=== PATIENT | male | born 1940 | race Caucasian/White ===

== ENCOUNTER 2019-11-01 13:02 | Emergency (ER) | payer MEDICARE, OTHER ==
[~2019-11-01] VITALS: Ht 177.8 cm; Wt 78.0 kg
--- OUTSIDE RECORDS SUMMARY | ~2019-11-01 | XMS | Encounter Summary ---
Demographics + + + | Address | [address] | | | [place] [address] | + + + | Home Phone | | + + + | Preferred Language | Unknown | + + + | Marital Status | | + + + | Druze Affiliation | Unknown | + + + | Race | Unknown | + + + | Ethnic Group | Unknown | + + + Author + + + | Author | [facility] | | | and Aashishana | + + + | Organization | [facility] | | | and Aashishana | + + + | Address | Unknown | + + + | Phone | Unavailable | + + + Support + + +---------+ + | Name | Relationship | Address | Phone | + + +---------+ + | Lisandra Dickey | ECON | Unknown | | + + +---------+ + Care Team Providers + +------+ + | Care Brazing Machine Operator Name | Role | Phone | + +------+ + | Cristopher Castro MD | PCP | | + +------+ + Reason for Visit +--------+ + | Reason | Comments | +--------+ + | COPD | 6 mo follow up | +--------+ + Encounter Details +--------+---------+ + + + | Date | Type | Department | Care Team | Description | +--------+---------+ + + + | 09/13/ | Office | [facility] | sOcar Morales, | COPD, very severe | | 2019 | Visit | PULMONARY [address] | MD [address] | ([facility]) | | | | [place], | [place], [place] | | | | | [place] [address] | [address] | | | | | [phone] | | | +--------+---------+ + + + Social History + + + +--------+ + | Tobacco Use | Types | Packs/Day | Years | Date | | | | | Used | | + + + +--------+ + | Former Smoker | Cigarettes | 0.75 | 31 | Quit: 06/13/1979 | + + + +--------+ + + +---+---+---+ | Smokeless Tobacco: | | | | | Never Used | | | | + +---+---+---+ + + +---------+ + | Alcohol Use | Drinks/Week | oz/Week | Comments | + + +---------+ + | No | | | | + + +---------+ + + + + | Sex Assigned at | Date Recorded | | | | + + + | Not on file | | + + + + + + + | Job Start Date | Occupation | Industry | + + + + | Not on file | Not on file | Not on file | + + + + + + + + | Travel History | Travel Start | Travel End | + + + + + + | No recent travel history available. | + + documented as of this encounter Last Filed Vital Signs + + + + + | Vital Sign | Reading | Time Taken | Comments | + + + + + | Blood Pressure | 160/80 | 09/13/2018 1:24 PM | | | | | PDT | | + + + + + | Pulse | 73 | 09/13/2018 1:24 PM | | | | | PDT | | + + + + + | Temperature | - | - | | + + + + + | Respiratory Rate | - | - | | + + + + + | Oxygen Saturation | 97% | 09/13/2018 1:24 PM | RA | | | | PDT | | + + + + + | Inhaled Oxygen | - | - | | | Concentration | | | | + + + + + | Weight | 77.2 kg (170 lb 3.1 | 09/13/2018 1:24 PM | | | | oz) | PDT | | + + + + + | Height | 180.3 cm (5' 11") | 09/13/2018 1:24 PM | | | | | PDT | | + + + + + | Body Mass Index | 23.74 | 09/13/2018 1:24 PM | | | | | PDT | | + + + + + documented in this encounter Patient Instructions Patient Instructions Oscar Morales MD - 09/13/2018 1:30 PM PDT Exercise: Adding Intensity You have been exercising for 30 minutes most days of the week. Now you can move on to the n ext stage: increasingthe intensity. This means doing your activity in one or more of these ways: Longer. Exercise for 30 minutes or more without a break. Faster. Hike, run, or skate fast enough to raise your heart rate moderately as if you had walked fast to catch a bus. More often. Doyour activity 4 to 6 times a week instead of 1 to 3 times. Not just gym class Be creative.You can reach your health and fitness goals in many ways. Try some of these a ctivities: Team sports, like basketball or soccer Social or recreational activities, like hiking or dancing Individual exercise, like cycling, swimming, or skating Group fitness classes, like aerobic classes or weight training Safety first Whatever activity you choose, think about safety: Wear the right safety gear and shoes for your activity. Drink plenty of water during and after workouts. Wear light-colored clothing if you re out when it s dark. Make time to warm up before you exercise and cool down after. Carry ID (identification) with you if you re out alone. And be sure someone knows wher e you re going. If you re on foot, travel against traffic (except on blind corners). If you re on a bike, go with traffic. Obey the rules of the road. Tips for sticking with it Find a workout partner or sports club. If you know someone is expecting you, you ll be less likely to skip your workout. Pack a workout bag with everything you need. Then it s ready when you are. Choose a few different activities so you ll stay interested. Make it fun! What will help you to stick with it? 1. 2. 3. Date Last Reviewed: 08/11/201719997827-3729 [employer]. [address] [place] [address]. All righ ts reserved. This information is not intended as a substitute for professional medical care. Always follow your healthcare professional's instructions. documented in this encounter Progress Notes Oscar Morales MD - 09/13/2018 1:30 PM PDTFormatting of this note might be different f rom the original. Pulmonary Follow Up 09/13/2018 HPI Parish Dickey is a 78 y.o. 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 The last pulmonary clinic visit was on 04/12/18. Since their last appointment they feel lik e their breathing issues have been stable. They have not had any acute pulmonary illnesses. The patient has not required a prednisone taper since our last clinic appointment. Likewise Parish has not required antibiotics fo r a COPD exacerbation since our last clinic appointment. The patient is currently on a daily regimen of Advair for their COPD. They do feel like th is medication regimen is/are controlling their symptoms. Currently he is using their short acting bronchodilator, Ventolin, 1- 2 times a month. Currently the patient is able to walk 100-200 yards at their own pace on level ground befor e developing dyspnea. They are not exercising regularly. Their typical exercise consists of walking about once per day. Also walks [facility]. Parish are not enrolled in cardiac/pu lmonary rehabilitation. They have not completed pulmonary rehabilitation in the past. Parish does not cough chronically and does not produce mucous. They have not had hemopty sis since our last appointment. He has not been evaluated for nocturnal oxygen. They have not reported recent symptoms of nasal congestion, runny nose or post nasal drip. The patient have received this year's influenza vaccination. They are up to date with thei r Prevnar 13. Parish is eligible for a Pneumovax 23 in February 2019. 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 His smoking use included Cigarettes. He has a 24.75 pack-year smoking history. He has never used smokeless tobacco. He reports that he does not drink alcohol or use drugs. Allergies: Allergies Allergen Reactions Oxycodone Other (See Comments) Rapid heart rate, sweating and dizziness Medications: Current Outpatient Prescriptions: acetaminophen (TYLENOL) 325 mg tablet, Take 325 mg by mouth every 4 hours as needed fo r Pain., Disp: , Rfl: albuterol (VENTOLIN HFA) 90 mcg/puff inhaler, Inhale 2 puffs into the lungs every 4 ho urs as needed for Wheezing., Disp: , Rfl: albuterol 2.5 mg/3 mL nebulizer solution, Take 2.5 mg by nebulization every 4 hours as needed for Shortness of Breath., Disp: , Rfl: CALCIUM & MAGNESIUM CARBONATES PO, Take by mouth Daily. Calcium carbonate 250mg - mag nesium carbonate 300mg , Disp: , Rfl: calcium carbonate (TUMS) 500 mg chewable tablet, Take 1 tablet by mouth as needed for Heartburn., Disp: , Rfl: carisoprodol (SOMA) 350 mg tablet, Take 350 mg by mouth Daily., Disp: , Rfl: clopidogrel (PLAVIX) 75 mg tablet, Take 75 mg by mouth Daily., Disp: , Rfl: diphenhydrAMINE-acetaminophen (TYLENOL PM EXTRA STRENGTH) 25-500 MG TABS, Take 1 table t by mouth nightly as needed., Disp: , Rfl: enalapril (VASOTEC) 5 mg tablet, Take 5 mg by mouth Daily., Disp: , Rfl: fluticasone-salmeterol (ADVAIR DISKUS) 250-50 mcg/puff diskus inhaler, Inhale 1 puff i nto the lungs Twice Daily., Disp: 1 each, Rfl: 11 Insulin NPH Isophane & Regular (NOVOLIN 70/30 RELION SC), Inject 10 Units under the sk in 2 times daily., Disp: , Rfl: ipratropium (ATROVENT) 500 mcg/2.5 mL nebulizer solution, Take 0.5 mg by nebulization every 4 hours as needed for Shortness of Breath., Disp: , Rfl: losartan (COZAAR) 100 MG tablet, Take 550 mg by mouth Daily., Disp: , Rfl: lovastatin (MEVACOR) 40 MG tablet, Take 40 mg by mouth nightly., Disp: , Rfl: metFORMIN (GLUCOPHAGE) 500 mg tablet, Take 2,000 mg by mouth Daily., Disp: , Rfl: Misc Natural Products (PROSTATE HEALTH PO), Take 1 tablet by mouth Daily., Disp: , Rfl : Immunizations: Immunization History Administered Date(s) Administered INFLUENZA 63 Y OR >, TRIVALENT HIGH-DOSE 04/02/2016, 04/02/2016, 02/20/2017, 03/07/2018 PNEUMOCOCCAL CONJUGATE 13-VALENT (PCV13) 03/07/2018 Objective BP 160/80 | Pulse 73 | Ht 1.803 m (5' 11") | Wt 77.2 kg (170 lb 3.1 oz) | SpO2 97% Comm ent: RA | BMI 23.74 kg/m Physical Exam Constitutional: He is oriented to person, place, and time and well-developed, well-nourishe d, and in no distress. HENT: Nose: No mucosal edema. Right sinus exhibits no frontal sinus tenderness. Left sinus exhibi ts no frontal sinus tenderness. Mouth/Throat: Mucous membranes are normal. Neck: Trachea normal. Neck supple. No JVD present. Cardiovascular: Normal rate, regular rhythm, S1 normal and S2 normal. No murmur heard. Pulmonary/Chest: No accessory muscle usage. No tachypnea. No respiratory distress. He has n o decreased breath sounds. He has no wheezes. He has no rhonchi. He has no rales. Chest wall is not dull to percussion. Musculoskeletal: He exhibits no edema. Lymphadenopathy: He has no cervical adenopathy. Neurological: He is alert and oriented to person, place, and time. Gait normal. Skin: Skin is warm, dry and intact. No cyanosis. Nails show no clubbing. Data: None Assessment 1. COPD Gold stage IV based on pulmonary function tests performed in February 2018. Th e severity of the patient's COPD however appears slightly less. Over the last 6 months Mr. Dickey has not reported symptoms concerning for an exacerbation of his COPD. He is up-to-date with respect to his seasonal influenza vaccination and Prevn ar. No evidence of exertional hypoxemia was noted based on testing from late February 2018. Plan 1. Initiation of regular scheduled exercise was strongly encouraged. Given the patient's place of residence Mr. Lugo would prefer to do this on his own. 2. High-dose seasonal influenza vaccination and Pneumovax 23 are both recommended for 2018. 3. The interval between pulmonary clinic follow-up appointments will be lengthened to 12 m [facility]. CC: Cristopher Castro MD P M PDTdocumented in this encounter Plan of Treatment +--------+---------+ + + + | Date | Type | Specialty | Care Team | Description | +--------+---------+ + + + | 11/18/ | Office | Pulmonology | Morales Oscar, | | | 2019 | Visit | | MD [address] | | | | | | [place] | | | | | | [address] | | | | | | | | +--------+---------+ + + + documented as of this encounter Visit Diagnoses + + | Diagnosis | + + | COPD, very severe (HCC) Chronic airway obstruction, not elsewhere classified | + + documented in this encounter
--- OUTSIDE RECORDS SUMMARY | ~2019-11-01 | XMS | Encounter Summary ---
Demographics + + + | Address | [address] | | | [place] [address] | + + + | Home Phone | | + + + | Preferred Language | Unknown | + + + | Marital Status | | + + + | Scientologist Affiliation | Unknown | + + + | Race | Unknown | + + + | Ethnic Group | Unknown | + + + Author + + + | Author | [facility] | | | and Aashishana | + + + | Organization | [facility] | | | and Aashishana | [...] Team Providers + +------+ + | Care Solar Sales Representative Name | Role | Phone | + +------+ + | Cristopher Castro MD | PCP | | + +------+ + Encounter Details +--------+ + + + + | Date | Type | Department | Care Team | Description | +--------+ + + + + | 11/28/ | Abstract | [facility] [place] | Jimmie, | Other chest pain | | 2015 | | CARDIOLOGY [address] | Violeta Torres CMA | (Primary Dx) | | | | [place], | | | | | | [place] [address] | | | | | | [phone] | | | +--------+ + + + + Social History + +-------+ +--------+ + | Tobacco Use | Types | Packs/Day | Years | Date | | | | | Used | | + +-------+ +--------+ + | Former Smoker | | | | Quit: 06/13/1979 | + +-------+ +--------+ + + + +---------+ + | Alcohol Use [...] + + documented as of this encounter Plan of Treatment +--------+---------+ + + + | Date | Type | Specialty | Care Team | Description | +--------+---------+ + + + | 11/18/ | Office | Pulmonology | Oscar Morales, | | | 2019 | Visit | | MD [address]acio [address] | | | | | | [place] | | | | | | [id number] | | | | | | | | +--------+---------+ + + + documented as of this encounter Visit Diagnoses + + | Diagnosis | + + | Other chest pain - Primary | + + documented in this encounter"
--- OUTSIDE RECORDS SUMMARY | ~2019-11-01 | XMS | Encounter Summary ---
Demographics + + + | Address | [address] | | | [place] [address] | + + + | Home Phone | | + + + | Preferred Language | Unknown | + + + | Marital Status | | + + + | Zoroastrian Affiliation | Unknown | + + + | Race | Unknown | + + + | Ethnic Group | Unknown | + + + Author + + + | Author | [facility] | | | and Aashishana | + + + | Organization | [facility] | | | and Aashishana [...] Team Providers + +------+ + | Care Woodworking Bench Carpenter Name | Role | Phone | + +------+ + | Cristopher Castro MD | PCP | | + +------+ + Reason for Visit +--------+ + | Reason | Comments | +--------+ + | Other | stress test results | +--------+ + Encounter Details +--------+ + + + + | Date | Type | Department | Care Team | Description | +--------+ + + + + | 12/30/ | Telephone | [facility] [place] | Kalli, Nadine Torres, | Other (stress test | | 2015 | | CARDIOLOGY [address] | MD [address] | results) | | | | [place], | [place], [place] | | | | | [place] [address] | [address] | | | | | [phone] | | | +--------+ + + + [...] [place] | | | | | | [phone] | | | | | | | | +--------+---------+ + + + documented as of this encounter Visit Diagnoses Not on filedocumented in this encounter"
--- OUTSIDE RECORDS SUMMARY | ~2019-11-01 | XMS | Encounter Summary ---
Demographics + + + | Address | [address] | | | [place] [address] | + + + | Home Phone | | + + + | Preferred Language | Unknown | + + + | Marital Status | | + + + | Confucianism Affiliation | Unknown | + + + | Race | Unknown | + + + | Ethnic Group | Unknown | + + + Author + + + | Author | [facility] | | | and Aashishana | + + + | Organization | [facility] | | | and Aashishana | [...] Team Providers + +------+ + | Care Gettering Operator Name | Role | Phone | + +------+ + | Cristopher Castro MD | PCP | | + +------+ + Encounter Details +--------+ + + + + | Date | Type | Department | Care Team | Description | +--------+ + + + + | 01/08/ | Hospital | [facility] | Thad Fatima MD | Special screening | | 2013 | Encounter | [facility] | [address] | for malignant | | | | [address] | [address] [place], [place] | neoplasms, colon | | | | [place], [place] | [address] | (Primary Dx); Family | | | | [address] | | history of | | | | [phone] | | malignant neoplasm | | | | | | of gastrointestinal | | | | | | tract | +--------+ + + + + Social [...] + + + | Blood Pressure | 98/60 | 01/08/2014 10:16 AM | | | | | PDT | | + + + + + | Pulse | 73 | 01/08/2014 10:16 AM | | | | | PDT | | + + + + + | Temperature | 36 C (96.8 F) | 01/08/2014 8:00 AM | | | | | PDT | | + + + + + | Respiratory Rate | 16 | 01/08/2014 10:16 AM | | | | | PDT | | + + + + + | Oxygen Saturation | 93% | 01/08/2014 10:16 AM | | | | | PDT | | + + + + + | Inhaled Oxygen | - | - | | | Concentration | | | | + + + + + | Weight | 76.8 kg (169 lb 5 | 01/08/2014 8:00 AM | | | | oz) | PDT | | + + + + + | Height | 180.3 cm (5' 11") | 01/08/2014 8:00 AM | | | | | PDT | | + + + + + | Body Mass Index | 23.61 | 01/08/2014 8:00 AM | | | | | PDT | | + + + + + documented in this encounter Medications at Time of Discharge + + + +---------+--------+ + | Medication | Sig | Dispensed | Refills | Start | End Date | | | | | | Date | | + + + +---------+--------+ + | CALCIUM & | Take by mouth | | 0 | | | | MAGNESIUM CARBONATES | Daily. Calcium | | | | | | PO | carbonate 250mg - | | | | | | | magnesium carbonate | | | | | | | 300mg | | | | | + + + +---------+--------+ + | | Take 1 tablet by | | 0 | | | | diphenhydrAMINE-acet | mouth nightly as | | | | | | aminophen (TYLENOL | needed. | | | | | | PM EXTRA STRENGTH) | | | | | | | 25-500 MG TABS | | | | | | + + + +---------+--------+ + | enalapril | Take 5 mg by mouth | | 0 | | | | (VASOTEC) 5 mg | Daily. | | | | | | tablet | | | | | | + + + +---------+--------+ + | lovastatin | Take 40 mg by mouth | | 0 | | | | (MEVACOR) 40 MG | nightly. | | | | | | tablet | | | | | | + + + +---------+--------+ + | metFORMIN | Take 2,000 mg by | | 0 | | | | (GLUCOPHAGE) 500 mg | mouth Daily. | | | | | | tablet | | | | | | + + + +---------+--------+ + | albuterol (PROAIR | Inhale 2 puffs into | | 0 | | | | HFA) 90 mcg/puff | the lungs 4 times | | | | 8 | | inhaler | daily. | | | | | + + + +---------+--------+ + | albuterol 2.5 mg/3 | Take 2.5 mg by | | 0 | | | | mL nebulizer | nebulization every 6 | | | | 8 | | solution | hours as needed. | | | | | + + + +---------+--------+ + | atenolol | Take 25 mg by mouth | | 0 | | | | (TENORMIN) 25 mg | Daily. | | | | 8 | | tablet | | | | | | + + + +---------+--------+ + | diphenhydrAMINE | Take 12.5 mg by | | 0 | | 09/18/201 | | (BENADRYL) 12.5 MG | mouth Daily as | | | | 8 | | chewable tablet | needed. | | | | | + + + +---------+--------+ + | famotidine | Take 20 mg by mouth | | 0 | | | | (PEPCID) 20 mg | Daily. | | | | 8 | | tablet | | | | | | + + + +---------+--------+ + | insulin aspart | Inject 15 Units | | 0 | | | | (NOVOLOG) 100 | under the skin Daily | | | | 6 | | units/mL injection | as needed. | | | | | + + + +---------+--------+ + | insulin glargine | Inject 16 Units | | 0 | | | | (LANTUS SOLOSTAR) | under the skin | | | | 8 | | 100 units/mL | Daily. | | | | | | injection pen | | | | | | + + + +---------+--------+ + | ipratropium | Take 0.5 mg by | | 0 | | | | (ATROVENT) 500 | nebulization Once a | | | | 8 | | mcg/2.5 mL nebulizer | week. And as needed | | | | | | solution | | | | | | + + + +---------+--------+ + | montelukast | Take 10 mg by mouth | | 0 | | | | (SINGULAIR) 10 mg | Daily. | | | | 8 | | tablet | | | | | | + + + +---------+--------+ + | omeprazole | Take 40 mg by mouth | | 0 | | | | (PRILOSEC) 40 MG | every morning | | | | 8 | | capsule | (before breakfast). | | | | | + + + +---------+--------+ + documented as of this encounter Plan of Treatment +--------+---------+ + + + | Date | Type | Specialty | Care Team | Description | +--------+---------+ + + + | 11/18/ | Office | Pulmonology | Oscar Morales, | | | 2020 | Visit | | MD [address] | | | | | | [place] | | | | | | [address] | | | | | | | | +--------+---------+ + + + documented as of this encounter Procedures + +--------+ + + + | Procedure Name | Priori | Date/Time | Associated Diagnosis | Comments | | | ty | | | | + +--------+ + + + | COLONOSCOPY | Routin | 01/08/2014 | | Results for this | | | e | 9:48 AM | | procedure are in the | | | | PDT | | results section. | + +--------+ + + + | COLONOSCOPY | | 01/08/2014 | Special screening | | | | | 9:44 AM | for malignant | | | | | PDT | neoplasms, colon | | | | | | Family history of | | | | | | malignant neoplasm | | | | | | of gastrointestinal | | | | | | tract | | + +--------+ + + + | POC GLUCOSE | Routin | 01/08/2014 | | Results for this | | | e | 8:20 AM | | procedure are in the | | | | PDT | | results section. | + +--------+ + + + documented in this encounter Results COLONOSCOPY (01/08/2014 9:48 AM PDT) + + | Specimen | + + | | + + + + -+ | Narrative | Performed At | + + -+ | | [facility] | | GastroenterologyPatient Name: Parish DickeyProcedmis Date: | [facility] | | 01/08/2014 9:48 AMMRN: [id number] #: [id number] of : | | | 8Admit Type: AmbulatoryAge: 73Room: [facility] 01Gender: MaleNote | | | Status: FinalizedAttending MD: Thad Fatima, [facility]cedure: | | | ColonoscopyIndications: Screening patient at increased | | | risk: Colorectal cancer in multiple | | | 1st-degree relativesProviders: Thad Fatima MD, [facility] | | | MELISSA Javier, Kiley Handley, | | | TechnicianReferring MD: Cristopher Castro MD (Referring | | | MD)Medicines: Midazolam 2 mg IV, Meperidine 100 mg IV, | | | Oxygen 4 liters/min | | | nasocannulaComplications: No immediate complications.Procedure: | | | Pre-Anesthesia Assessment: - Prior to the procedure, a | | | History and Physical was performed, and patient medications, | | | allergies and sensitivities were reviewed. The patient's | | | tolerance of previous anesthesia was reviewed. - Prior to the | | | procedure, a History and Physical was performed, and patient | | | medications and allergies were reviewed. The patient is | | | competent. The risks and benefits of the procedure and the sedation | | | options and risks were discussed with the patient. All questions | | | were answered and informed consent was obtained. Patient | | | identification and proposed procedure were verified by the | | | physician, the nurse and the airframe technician in the endoscopy suite. | | | Mental Status Examination: alert and oriented. Airway | | | Examination: normal oropharyngeal airway and neck mobility and | | | Mallampati Class II (the uvula but not tonsillar pillars | | | visualized). Respiratory Examination: clear to auscultation. CV | | | Examination: normal. Prophylactic Antibiotics: The patient does not | | | require prophylactic antibiotics. Prior Anticoagulants: The | | | patient has taken no previous anticoagulant or antiplatelet | | | agents. ASA Grade Assessment: II - A patient with mild systemic | | | disease. After reviewing the risks and benefits, the patient | | | was deemed in satisfactory condition to undergo the procedure. | | | The anesthesia plan was to use moderate sedation / analgesia | | | (conscious sedation). Immediately prior to administration of | | | medications, the patient was re-assessed for adequacy to | | | receive sedatives. The heart rate, respiratory rate, oxygen | | | saturations, blood pressure, adequacy of pulmonary ventilation, and | | | response to care were monitored throughout the procedure. The | | | physical status of the patient was re-assessed after the | | | procedure. - Immediately prior to administration of medications, | | | the patient was re-assessed for adequacy to receive sedatives. | | | - The heart rate, respiratory rate, oxygen saturations, blood | | | pressure, adequacy of pulmonary ventilation, and response to | | | care were monitored throughout the procedure. - The | | | physical status of the patient was re-assessed after the procedure. | | | After I obtained informed consent, the scope was passed under | | | direct vision. Throughout the procedure, the patient's blood | | | pressure, pulse, and oxygen saturations were monitored | | | continuously. The endoscope was introduced through the anus and | | | advanced to the cecum, identified by the appendiceal orifice, | | | ileocecal valve and palpation. The colonoscopy was performed | | | without difficulty. The patient tolerated the procedure well. | | | The quality of the bowel preparation was good.Findings: The | | | perianal and digital rectal examinations were normal. Pertinent | | | negatives include normal sphincter tone, no palpable rectal lesions | | | and normal prostate (size, shape, and consistency). The | | | sigmoid colon was mildly tortuous. The exam was otherwise | | | without abnormality. The retroflexed view of the distal rectum | | | and anal verge was normal and showed no anal or rectal | | | abnormalities.Impression: - Tortuous colon. - The | | | examination was otherwise normal. - The distal rectum and anal | | | verge are normal on retroflexion view.Recommendation: - | | | Discharge patient to home (ambulatory). - Return to previous | | | diet today. - Continue present medications. - Repeat | | | colonoscopy in 5 years for screening purposes. - Return to | | | primary care physician as previously scheduled. - Telephone GI | | | clinic if symptomatic.Thad Fatima MD01/08/2014 10:44 AMThis report | | | has been signed electronically.Number of Addenda: 0Note Initiated On: | | | 01/08/2014 9:48 AM [facility], [address] | | | [place] [address] | | | - The distal rectum and anal verge are normal on retroflexion view. | | |Recommendation: | | | - Discharge patient to home (ambulatory). | | | - Return to previous diet today. | | | - Continue present medications. | | | - Repeat colonoscopy in 5 years for screening purposes. | | | - Return to primary care physician as previously scheduled. | | | - Telephone GI clinic if symptomatic. | | |Thad Fatima MD | | |01/08/2014 10:44 AM | | |This report has been signed electronically. | | |Number of Addenda: 0 | | |Note Initiated On: 01/08/2014 9:48 AM | | | [facility], [address] [place], [place] | | | [address] | | + + -+ + + | Transcriptions | + + | Ana Lilia Hopper - 01/08/2014 12:00 AM PDT | + + + +---------+ + + | Performing | Address | City/State/Zipcode | Phone Number | | Organization | | | | + +---------+ + + | [facility] | | | | + +---------+ + + POC Glucose (01/08/2014 8:20 AM PDT) + +-------+ + + + | Component | Value | Ref Range | Performed | Pathologist | | | | | At | Signature | + +-------+ + + + | Glucose, | 118 | 79 - 150 mg/dL | [facility] | | | POC | | | [facility] | | | [facility] | | | [facility] - | | | | | | LABORATORY | | + +-------+ + + + + + | Specimen | + + | Blood | + + + + + + + | Performing | Address | City/State/Zipcode | Phone Number | | Organization | | | | + + + + + | [facility] | [address] | [place] | [phone] | | [facility] | | [address] | | | - LABORATORY | | | | + + + + + | [facility] | [address] | [place], [place] | | | [facility] | | [phone], [facility] | | | - LABORATORY | | | | + + + + + documented in this encounter Visit Diagnoses + + | Diagnosis | + + | Special screening for malignant neoplasms, colon - Primary | + + | Family history of malignant neoplasm of gastrointestinal tract | + + documented in this encounter Administered Medications + +---------+ +------+-------+------+ | Medication Order | MAR | Action | Dose | Rate | Site | | | Action | Date | | | | + +---------+ +------+-------+------+ | lactated ringers (LR) infusion | New Bag | 01/09/20 | | 100 | | | at 100 mL/hr, Intravenous, | | 14 8:00 | | mL/hr | | | CONTINUOUS, Starting 01/08/14 | | AM PDT | | | | | at 0830, Pre-op | | | | | | + +---------+ +------+-------+------+ +---+---+ | | | +---+---+ + +-------+ +--------+---+---+ | meperidine (DEMEROL) 100 mg/mL | Given | 01/09/20 | 100 mg | | | | injection PRN, Pain, Starting | | 14 9:54 | | | | | 01/08/14 at 0954 | | AM PDT | | | | + +-------+ +--------+---+---+ +---+---+ | | | +---+---+ + +-------+ +------+---+---+ | midazolam (VERSED) 5 mg/mL | Given | 01/09/20 | 1 mg | | | | injection PRN, Anxiety, Starting | | 14 10:00 | | | | | 01/08/14 at 0956 | | AM PDT | | | | + +-------+ +------+---+---+ +-------+ +------+---+---+ | Given | 01/09/20 | 1 mg | | | | | 14 9:56 | | | | | | AM PDT | | | | +-------+ +------+---+---+ +---+---+ | | | +---+---+ documented in this encounter
--- OUTSIDE RECORDS SUMMARY | ~2019-11-01 | XMS | Encounter Summary ---
Demographics + + + | Address | [address] | | | [place] [address] | + + + | Home Phone | | + + + | Preferred Language | Unknown | + + + | Marital Status | | + + + | Nondenominational Affiliation | Unknown | + + + | Race | Unknown | + + + | Ethnic Group | Unknown | + + + Author + + + | Author | [facility] | | | and Aashishana | + + + | Organization | [facility] | | | and Aashishana | [...] Team Providers + +------+ + | Care Hot Car Charger Name | Role | Phone | + +------+ + | Cristopher Castro MD | PCP | | + +------+ + Reason for Visit + + + | Reason | Comments | + + + | Appointment | | + + + Encounter Details +--------+ + + + + | Date | Type | Department | Care Team | Description | +--------+ + + + + | 09/15/ | Telephone | [facility] [place] | Nadine Mahan, | Appointment | | 2015 | | [address] | MD [address] | | | | | [place], | [place], [place] | | | | | [place] [address] | [address] | | | | | [phone] | | | +--------+ + + + [...] [place] | | | | | | [address] | | | | | | | | +--------+---------+ + + + documented as of this encounter Visit Diagnoses Not on filedocumented in this encounter"
--- OUTSIDE RECORDS SUMMARY | ~2019-11-01 | XMS | Encounter Summary ---
Demographics + + + | Address | [address] | | | [place] [address] | + + + | Home Phone | | + + + | Preferred Language | Unknown | + + + | Marital Status | | + + + | Rastafari Affiliation | Unknown | + + + | Race | Unknown | + + + | Ethnic Group | Unknown | + + + Author + + + | Author | [facility] | | | and Aashishana | + + + | Organization | [facility] | | | and Aashishana | [...] Team Providers + +------+ + | Care Global Technical Writer Name | Role | Phone | + +------+ + | Cristopher Castro MD | PCP | | + +------+ + Reason for Referral Diagnostic/Screening (Routine) +--------+--------+ + + + + | Status | Reason | Specialty | Diagnoses / | Referred By | Referred To | | | | | Procedures | Contact | Contact | +--------+--------+ + + + + | Closed | | Radiology | Diagnoses | Kalli, | [facility] | | | | | Other chest | Nadine Torres MD | Medicine | | | | | pain | [address] | [address] | | | | | Procedures | [place] | [place], | | | | | [place] Nuclear | [place], [place] | [place] | | | | | Stress Test | [address] | [address] | | | | | (Exercise) | Phone: | Phone: | | | | | | [phone] | [phone] | | | | | | Fax: | Fax: | | | | | | [phone] | [phone] | +--------+--------+ + + + + Reason for Visit + + + | Reason | Comments | + + + | Chest Pain | | + + + Evaluate & Treat (Routine) +--------+--------+ + + + + | Status | Reason | Specialty | Diagnoses / | Referred By | Referred To | | | | | Procedures | Contact | Contact | +--------+--------+ + + + + | Closed | | Cardiology | Diagnoses | Matthew, | [place] | | | | | ATYPICAL | Cristopher | Nadine Torres MD | | | | | LUE PRESSURE | MD Jayme | [address] | | | | | ANGINAL | [address] | [place] | | | | | EQUIVALENT | [place] | [place], [place] | | | | | Procedures | [place], [place] | [address] Phone: | | | | | [place] OFFICE | [address] | [phone] | | | | | CONSULTATION | Phone: | Fax: | | | | | NEW/ESTAB | [phone] | [phone] | | | | | PATIENT 38 | Fax: | | | | | | MIN TIMBER SURVEYOR | [phone] | | +--------+--------+ + + + + Encounter Details +--------+---------+ + + + | Date | Type | Department | Care Team | Description | +--------+---------+ + + + | 12/05/ | Office | [facility] | Nadine Mahan, | Other chest pain | | 2015 | Visit | CARDIOLOGY [address] | MD [address] | (Primary Dx); | | | | [address] [place], | [place] | Hyperlipemia; | | | | [place] [address] | [address] | Essential | | | | [phone] | | hypertension; | | | | | | Emphysema/COPD | | | | | | (HCC); Diabetes | | | | | | (HCC); Coronary | | | | | | artery calcification | | | | | | seen on CAT scan | +--------+---------+ + + + Social History + +-------+ [...] + + + | Blood Pressure | - | - | | + + + + + | Pulse | 80 | 12/05/2014 8:58 AM | | | | | PDT | | + + + + + | Temperature | - | - | | + + + + + | Respiratory Rate | 16 | 12/05/2014 8:58 AM | | | | | PDT | | + + + + + | Oxygen Saturation | - | - | | + + + + + | Inhaled Oxygen | - | - | | | Concentration | | | | + + + + + | Weight | 74.8 kg (165 lb) | 12/05/2014 8:58 AM | | | | | PDT | | + + + + + | Height | 180.3 cm (5' 11") | 12/05/2014 8:58 AM | | | | | PDT | | + + + + + | Body Mass Index | 23.01 | 12/05/2014 8:58 AM | | | | | PDT | | + + + + + documented in this encounter Progress Notes Nadine Mahan MD - 12/05/2014 3:16 PM PDTFormatting of this note might be different fr om the original. PATIENT NAME: Parish Dickey : 1940: AGE: 74 y.o. REFERRED BY: Cristopher Castro PRIMARY CARE: Cristopher Castro MD NEW PATIENT OFFICE CONSULT Date of Service: 05 December 2014 HISTORY OF PRESENT ILLNESS: Parish Dickey is a 74 y.o. male with no history of coronary disease. He is bein g seen today at the request of Dr Castro. The patient states that he experienced a prolong ed episode of left arm pain last Tuesday. He was driving at the time the pain was up the inside of his left arm he felt slightly sweaty with it he is always short of breath and that did not change. Did not stop driving he did not do anything different he did not take any medications he had no radiation of the pain elsewhere than up the inside of his left arm he had no chest pain neck pain or back pain and no syncope presyncope or palpitations .he did n ot have any of his usual heartburn sensation with this . He had experienced some hip pain earlier. The pain in his arm was non pleuritic .he's neve r experienced a discomfort like this before . He he underwent a stress test in 2010 that was done to just "see if everything was okay ". A recent CT scan of the chest did show some coronary calcification. He had no problems after he got home the pain was gone within an hour it did not seem to be exertional at all it did not really seem that it was related to position is not any had any thing like that since that time . At the time he had the discomfort but it made his arm hurt to the point where he was unable to wear a watch . CURRENT PROBLEMS Patient Active Problem List Diagnosis Special screening for malignant neoplasms, colon Family history of malignant neoplasm of gastrointestinal tract Unspecified disorder of kidney and ureter Allergic rhinitis, cause unspecified Unspecified asthma(493.90) Nausea alone Essential hypertension, benign Pure hypercholesterolemia Type II or unspecified type diabetes mellitus without mention of complication, not stat ed as uncontrolled Chronic obstructive asthma with exacerbation Esophageal reflux Other seborrheic keratosis Other chest pain MEDICAL, SURGICAL, AND PERSONAL HISTORY Past Surgical History Procedure Laterality Date Cataract removal 2008 bilateral Other 1978 ulcer surgery Vasectomy 1975 Tonsillectomy and adenoidectomy 1947 Colonoscopy 01/08/2014 COLONOSCOPY; Laterality: N/A; Surgeon: Thad Fatima MD; Location: 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 Family History Problem Relation Age of Onset Diabetes Mother Parkinsonism Cancer Father lung Family Status Relation Status Age Mother Father younger sister had IA and Mother had murmur History Social History Marital Status: Spouse Name: N/A Number of Children: N/A Years of Education: N/A Social History Main Topics Smoking status: Former Smoker Quit date: 06/13/1979 Smokeless tobacco: None Alcohol Use: No Drug Use: No Sexual Activity: None Other Topics Concern None Social History Narrative CURRENT MEDICATIONS Current Outpatient Prescriptions Medication Sig Dispense Refill albuterol (PROAIR HFA) 90 mcg/puff inhaler Inhale 2 puffs into the lungs 4 times daily. albuterol 2.5 mg/3 mL nebulizer solution Take 2.5 mg by nebulization every 6 hours as n eeded. atenolol (TENORMIN) 25 mg tablet Take 25 mg by mouth Daily. CALCIUM & MAGNESIUM CARBONATES PO Take by mouth 2 times daily. Calcium carbonate 250mg - magnesium carbonate 300mg diphenhydrAMINE (BENADRYL) 12.5 MG chewable tablet Take 12.5 mg by mouth Daily as neede d. diphenhydrAMINE-acetaminophen (TYLENOL PM EXTRA STRENGTH) 25-500 MG TABS Take 1 tablet by mouth nightly as needed. enalapril (VASOTEC) 5 mg tablet Take 5 mg by mouth Daily. famotidine (PEPCID) 20 mg tablet Take 20 mg by mouth Daily. insulin aspart (NOVOLOG) 100 units/mL injection Inject 7 Units under the skin Daily as needed. insulin glargine (LANTUS SOLOSTAR) 100 units/mL injection pen Inject 16 Units under the skin Daily. ipratropium (ATROVENT) 500 mcg/2.5 mL nebulizer solution Take 0.5 mg by nebulization 4 times daily. lovastatin (MEVACOR) 40 MG tablet Take 40 mg by mouth nightly. metFORMIN (GLUCOPHAGE) 500 mg tablet Take 2,000 mg by mouth Daily. montelukast (SINGULAIR) 10 mg tablet Take 10 mg by mouth Daily. omeprazole (PRILOSEC) 40 MG capsule Take 40 mg by mouth every morning (before breakfast ). No current facility-administered medications for this visit. ALLERGIES No Known Allergies ROS His weight is been stable He has no cough sputum production or hemoptysis no fever chills or infections No melena or hematochezia show a colonoscopy not long ago was normal He will occasionally have some edema of his ankles but that usually very short-lived He does not do much walking he had a back fracture in the past and cannot walk He has no history of blood clots in his legs or his lungs He has quite a bit of heartburn he keeps Tums with him at all times especially at night he takes omeprazole and Pepcid as well and Tums as well He was told that his cholesterol is normal OBJECTIVE: PHYSICAL EXAM BP | Pulse 80 | Resp 16 | Ht 1.803 m (5' 11") | Wt 74.844 kg (165 lb) | BMI 23.02 kg/m2 PHYSICAL EXAM Latest VS: BP | Pulse 80 | Resp 16 | Ht 1.803 m (5' 11") | Wt 74.844 kg (165 lb) | BMI 23 .02 kg/m2 Body mass index is 23.02 kg/(m^2).; Body surface area is 1.94 meters squared. Constitutional General appearance: well developed, well nourished, well groomed, no acute distress Cardiovascular Palp/Percussion: PMI in 5th ICS at MCL; no lifts, thrills, palp S3 or S4. Auscultation: normal S1 S2; no gallop or rub or click Murmur: none Carotid arteries: pulses 2+, symmetric, no bruits Abdominal aorta: no enlargement or bruits Femoral arteries: pulses 2+, symmetric Pedal pulses: pulses 2+, symmetric Peripheral circulation: no cyanosis, clubbing, edema, or varicosities Gastrointestinal Abdomen: soft, non-tender, no masses Liver and spleen: no enlargement Mental Status/Neurological Orientation: oriented to time, place, and person Affect/Mood: no depression, anxiety, or agitation Respiratory Respiratory effort: no intercostal retractions or use of accessory muscles Auscultation: no rales, rhonchi, or wheezes Eyes Conjunctiva & lids: conjunctiva and lids normal Ears, Nose and Throat Lips: no pallor or cyanosis Neck Jugular veins: no significant JVD; no a, v or landis waves Musculoskeletal Gait and station: normal without ataxia Extremities Digits and nails: no clubbing, cyanosis, or petechiae Skin Inspection: no visible rashes, lesions, or ulcerations ECG: Done today and reviewed by me personally in the clinic is normal ASSESSMENT: Left arm pain - may have been C/W unstable angina. Currently asymptomatic Emphysema HTN Type 2 diabetes Hyperlipidemia with reported good control Severe YUNG Coronary calcification noted on CT PLAN: He has multiple risk factors for CAD Stress Cardiolite Follow up depending on results of scan He agrees with the plan Electronically signed by: Nadine Mahan MD [facility] 12/05/2014 Portions of this chart may have been created with [employer] voice recognition software. Occasi onal wrong-word or sound-alike substitutions may have occurred due to the inherent reyes itations of voice recognition software. Please read the chart carefully and recognize, using context, where these substitutions have occurred. documented in this encounter Plan of Treatment +--------+---------+ + + + | Date | Type | Specialty | Care Team | Description | +--------+---------+ + + + | 11/18/ | Office | Pulmonology | Oscar Morales, | | | 2019 | Visit | | MD [address] | | | | | | [place] | | | | | | [address] | | | | | | | | +--------+---------+ + + + + +------+--------+ + + | Name | Type | Priori | Associated Diagnoses | Order Schedule | | | | ty | | | + +------+--------+ + + | ECG 12 lead | ECG | Routin | Other chest pain | Ordered: 12/05/2014 | | | | e | | | + +------+--------+ + + documented as of this encounter Results [place] Nuclear Stress Test (Exercise) (12/19/2014 11:59 AM PDT) + + | Specimen | + + | | + + + + + | Impressions | Performed At | + + + | 1. Exercise EKG is negative for diagnostic changes. | [facility] | | 2. Blood pressure response is appropriate. 3. The | [facility] | | patient had shortness of breath without chest pain during the | [facility] | | procedure. 4. There is no arrhythmia during procedure. | - IMAGING | | 5. Exercise tolerance is diminished for age. | | | 6. Exercise sestamibi myocardial perfusion imaging study | | | notable for probable inferolateral attenuation artifact without | | | obvious significant perfusion abnormalities, with normal left | | | ventricular size, wall thickness and motion. Preserved left | | | ventricular systolic function. LVEF by gated SPECT is 87%. | | | Signed by: John Terry MD [facility] 12/19/2014, 11:59 | | + + + + + + | Narrative | Performed At | + + + | NUCLEAR MEDICINE STRESS TEST REPORT | [facility] | | Patient Name: Parish Dickey Study Date: 12/19/2014 | [facility] | | Primary Care Provider: Cristopher Castro MD : | [facility] | | 1940 Age: 74 y.o. Gender: male CLINICAL | - IMAGING | | HISTORY/DIAGNOSIS: Chest pain EXERCISE SESTAMIBI STRESS TEST | | | Indication: CP Procedure: The patient exercised using a | | | standard Km protocol and walked for 3 minutes 30 seconds. Heart | | | rate increased from 80 beats per minute to 137 beats per minute | | | which is 95 % of the maximal predicted heart rate. Blood pressure | | | lisa from 131/81 mmHg to 196/76 mmHg. The test was stopped because | | | of achievement of targeted heart rate. Baseline EKG showed a sinus | | | rhythm, normal EKG. At the peak of exercise, 11.2 mCi of Sestamibi | | | was given intravenously. The patient was taken to the Nuclear | | | Medicine Department. The SPECT myocardial perfusion imaging was | | | acquired with wall motion analysis. The rest imaging was performed | | | using 34.6 mCi sestamibi intravenous injection. The repeated | | | SPECT myocardial perfusion imaging was acquired with wall motion | | | analysis. Exercise Sestamibi Myocardial Perfusion Imaging Result: | | | The tomographic images, reviewed without the attenuation | | | compensation resolution, revealed a myocardial perfusion pattern as | | | seen in short axis, vertical long axis, and horizontal long axis | | | projections notable for probable inferolateral attenuation artifact | | | without obvious significant perfusion abnormalities. The left | | | ventricular cavity is normal Gated SPECT reveals a normal | | | left ventricular wall thickness and motion. Preserved left | | | ventricular systolic function. LVEF by gated SPECT is 87%. | | + + + + + + + + | Performing | Address | City/State/Zipcode | Phone Number | | Organization | | | | + + + + + | [facility] | [address] | [place], [place] | [phone] | | [facility] | | [address] | | | - IMAGING | | | | + + + + + documented in this encounter Visit Diagnoses + + | Diagnosis | + + | Other chest pain - Primary | + + | Hyperlipemia Other and unspecified hyperlipidemia | + + | Essential hypertension Unspecified essential hypertension | + + | Emphysema/COPD (HCC) Other emphysema | + + | Diabetes (HCC) | + + | Coronary artery calcification seen on CAT scan Coronary atherosclerosis of | | unspecified type of vessel, [place] or graft | + + documented in this encounter
--- OUTSIDE RECORDS SUMMARY | ~2019-11-01 | XMS | Encounter Summary ---
Demographics + + + | Address | [address] | | | [place] [address] | + + + | Home Phone | | + + + | Preferred Language | Unknown | + + + | Marital Status | | + + + | Taoist Affiliation | Unknown | + + + | Race | Unknown | + + + | Ethnic Group | Unknown | + + + Author + + + | Author | [facility] | | | and Aashishana | + + + | Organization | [facility] | | | and Aashishana [...] Team Providers + +------+ + | Care Blow Molding Machine Operator Name | Role | Phone | + +------+ + | Cristopher Castro MD | PCP | | + +------+ + Encounter Details +--------+---------+ + + + | Date | Type | Department | Care Team | Description | +--------+---------+ + + + | 01/08/ | Surgery | [facility] | Thad Fatima MD | COLONOSCOPY | | 2013 | | MED CTR MP INTRA OP | [address], [place] | | | | | [address] | [address] [place] | | | | | [place] | [address] | | | | | [address] | | | | | | [phone] | | | +--------+---------+ + + + [...] | | 0 | | | | (BENADRYL) 12.5 MG | mouth [...] | | 2019 | Visit | | [address] | | | | | | [place] | | | | | | [address] | | | | | | | [...] | [facility] | | 01/08/2014 9:48 AMMRN: [id number] #: [id number] of : | | | 8Admit Type: AmbulatoryAge: 73Room: [facility] 01Gender: MaleNote | | | Status: FinalizedAttending MD: Thad Fatima, [facility]cedure: | | | ColonoscopyIndications: Screening patient at increased | | | risk: Colorectal cancer in multiple | | | 1st-degree relativesProviders: Thad Fatima MD, [facility] | | | MELISSA Javier, [...] | | physician, the nurse and the assistant technician in the endoscopy suite. | | [...] On: | | | 01/08/2014 9:48 AM , [address] | | | [place] [address] | | | - The distal rectum [...] On: 01/08/2014 9:48 AM | | | , [address] [place], [place] | | | [address] | | + + -+ + + | Transcriptions | + + | Demondisela Ana Lilia - 01/08/2014 12:00 AM PDT | + [...] 118 | 79 - 150 mg/dL | [facility] | | | POC | | | [...] [address] | [place] | [phone] | | [facility] | | [address] | | | - LABORATORY | | | | + + + + + | [address] | [address] | [place], [place] | | | [facility] | | [address], [facility] | | | - LABORATORY | | | | + + + + + documented in this encounter Visit Diagnoses + + | Diagnosis | + + | Special screening for malignant neoplasms, colon | + + | Family history of [...] | mL/hr | | | CONTINUOUS, Starting Tue01/08/14 | | AM PDT | | | | | at 0830, Pre-op | | | | | | + +---------+ +------+-------+------+ +---+---+ | | | +---+---+ + +-------+ +--------+---+---+ | meperidine (DEMEROL) 100 mg/mL | Given | 01/09/20 | 100 mg | | | | injection PRN, Pain, Starting | | 14 9:54 | | | | | Tu01/08/14 at 0954 | | AM PDT | [...]
--- OUTSIDE RECORDS SUMMARY | ~2019-11-01 | XMS | Encounter Summary ---
Demographics + + + | Address | [address] | | | [place] [address] | + + + | Home Phone | | + + + | Preferred Language | Unknown | + + + | Marital Status | | + + + | Alevism Affiliation | Unknown | + + + | Race | Unknown | + + + | Ethnic Group | Unknown | + + + Author + + + | Author | [facility] | | | and Aashishana | + + + | Organization | [facility] | | | and Aashishana [...] Team Providers + +------+ + | Care Mangle Operator Garments Name | Role | Phone | + [...] | [address] | [address] | | | | | Procedures | [place] | [place], | | | | | [place] Nuclear | [place], [place] | [place] | | | | | Stress Test | [address] | [address] | | | | | (Exercise) | Phone: | Phone: | | | | | | [phone] | [phone] | | | | | | Fax: | Fax: | | | | | | [phone] | [phone] | +--------+--------+ + + + + Reason for Visit Diagnostic/Screening (Routine) +--------+--------+ + + + + [...] | [address] | [address] | | | | | Procedures | [place] | [place], | | | | | [place] Nuclear | [place] | [place] | | | | | Stress Test | [address] | [address] | | | | | (Exercise) | Phone: | Phone: | | | | | | [phone] | [phone] | | | | | | Fax: | Fax: | | | | | | [phone] | [phone] | +--------+--------+ + + + + Encounter Details +--------+ + + + + | Date | Type | Department | Care Team | Description | +--------+ + + + + | 12/19/ | Hospital | [facility] | Nadine Mahan, | Other chest pain | | 2015 | Encounter | MED CTR NUCLEAR | MD [address] | | | | | MEDICINE [address] | [place] | | | | | [place], | [id number] | | | | | [place] [address] | | | | | | [phone] | | | +--------+ + + + [...] + + + + | Pulse | - | - | | + [...] Weight | 74.8 kg (165 lb) | 12/19/2014 9:00 AM | | | | | PDT | | + + + + + | Height | - | - | | + [...] [place] | | | | | | [address] | | | | | | | | +--------+---------+ + + + documented as of this encounter Procedures + +--------+ + + + | Procedure Name | Priori | Date/Time | Associated Diagnosis | Comments | | | ty | | | | + +--------+ + + + | [place] NUCLEAR STRESS | Routin | 12/19/2014 | Other chest pain | Results for this | | TEST (EXERCISE) | e | 11:59 AM | | procedure are in the | | | | PDT | | results section. | + +--------+ + + + documented in this encounter Results [place] Nuclear Stress Test (Exercise) (12/19/2014 11:59 AM PDT) + + | Specimen | + + | | + + + + + | Impressions | Performed At | + + + | 1. Exercise EKG is negative for diagnostic changes. | [facility] | | 2. Blood pressure response is appropriate. 3. The | [facility] | | patient had shortness of breath without chest pain during the | [facility] | | procedure. 4. There is [...] | | Signed by: John Terry MD PhD [facility] 12/19/2014, 11:59 | | + + + + + + | Narrative | Performed At | + + + | NUCLEAR MEDICINE STRESS TEST REPORT | [facility] | | Patient Name: Parish Dickey Study Date: 12/19/2014 | [facility] | | Primary Care Provider: Cristopher Castro MD : | [facility] | | 1940 Age: 74 y.o. [...] + | [address] | [address] | [place], [place] | [phone] | | [facility] | | [address] | | | - IMAGING | | | | + + + + + documented in this encounter Visit Diagnoses + + | Diagnosis | + + | Other chest pain | + + documented in this encounter Administered Medications + +--------+ + +------+------+ | Medication Order | MAR | Action | Dose | Rate | Site | | | Action | Date | | | | + +--------+ + +------+------+ | technetium TC-[id number] sestamibi | Given | 12/20/19 | 9 | | | | (CARDIOLITE) injection | | 15 9:39 | -millicu | | | | millicurie 9 -millicurie, | | AM PDT | sandoval | | | | Intravenous, ONCE PRN, Other, | | | | | | | Starting Amber 12/19/14 at 0939, For | | | | | | | 1 dose, Nuclear Medicine | | | | | | + +--------+ + +------+------+ +---+---+ | | | +---+---+ documented in this encounter"
--- OUTSIDE RECORDS SUMMARY | ~2019-11-01 | XMS | Encounter Summary ---
Demographics + + + | Address | [address] | | | [place] [address] | + + + | Home Phone | | + + + | Preferred Language | Unknown | + + + | Marital Status | | + + + | Anabaptist Affiliation | Unknown | + + + | Race | Unknown | + + + | Ethnic Group | Unknown | + + + Author + + + | Author | [facility] | | | and Aashishana | + + + | Organization | [facility] | | | and Aashishana [...] Team Providers + +------+ + | Care Electrical Journeyman Name | Role | Phone | + +------+ + | Cristopher Castro MD | PCP | | + +------+ + Encounter Details +--------+ + + + + | Date | Type | Department | Care Team | Description | +--------+ + + + + | 03/01/ | Imaging | [facility] | Provider, | | | 2018 | Exam | [facility] | MD [address] | | | | | IMAGING [address] | [address] | | | | | [address] | [place] [address] | | | | | [place] [address] | | | | | | [phone] | | | +--------+ + + + [...] [place] | | | | | | [address] | | | | | | | | +--------+---------+ + + + documented as of this encounter Procedures + +--------+ + + + | Procedure Name | Priori | Date/Time | Associated Diagnosis | Comments | | | ty | | | | + +--------+ + + + | CT CHEST W CONTRAST | Routin | 08/12/2017 | | Results for this | | | e | 9:50 AM | | procedure are in the | | | | PST | | results section. | + +--------+ + + + documented in this encounter Results CT Chest w Contrast (08/12/2017 9:50 AM PST) + + | Specimen | + + | | + + + + + | Narrative | Performed At | + + + | External films for comparison only | [facility] | | | | | No results will be in the chart. | | + + + + +---------+ + + | Performing | Address | City/State/Zipcode | Phone Number | | Organization | | | | + +---------+ + + | [facility] | | | | + +---------+ + + documented in this encounter Visit Diagnoses Not on filedocumented in this encounter"
--- OUTSIDE RECORDS SUMMARY | ~2019-11-01 | XMS | Encounter Summary ---
Demographics + + + | Address | [address] | | | [place] [address] | + + + | Home Phone | | + + + | Preferred Language | Unknown | + + + | Marital Status | | + + + | Moravian Affiliation | Unknown | + + + | Race | Unknown | + + + | Ethnic Group | Unknown | + + + Author + + + | Author | [facility] | | | and Aashishana | + + + | Organization | [facility] | | | and Aashishana [...] Team Providers + +------+ + | Care Supervisor Boat Outfitting Name | Role | Phone | + [...] | [address] | [address] | | | | | Procedures | [place] | [place], | | | | | [place] | [place], [place] | [place] | | | | | Stress Test | [address] | [address] | | | | | (Exercise) | Phone: | Phone: | | | | | | [phone] | [phone] | | | | | | Fax: | Fax: | | | | | | [phone] | [phone] | +--------+--------+ + + + + Reason [...] | | Procedures | [place], [place] | [address] Phone: | | | | | [place] OFFICE | [address] | [phone] | | | | | CONSULTATION | Phone: | Fax: | | | | | NEW/ESTAB | [phone] | [phone] | | | | | PATIENT 38 | Fax: | | | | | | MIN YEAST PUSHER | [phone] | | +--------+--------+ + + + + [...] | (Primary Dx); | | | | [place], | [place], [place] | Hyperlipemia; | | | | [place] [address] | [address] | Essential | | | | [phone] | | hypertension; | | | | [...] Laterality: N/A; Surgeon: Thad Fatima MD; Location: [facility] Other 1983 low back disk surgery L3-L4 many years ago in the 1970's 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 Occasi onal wrong-word or [...] [place] | | | | | | [address] | | | | | | | [...] pressure response is appropriate. 3. The | [facility] | | patient had shortness of breath without chest pain during the | [facility] | | procedure. 4. There is no [...] | | Signed by: John Terry MD [facility] 12/19/2014, 11:59 | | + + + + + + | Narrative | Performed At | + + + | NUCLEAR MEDICINE STRESS TEST REPORT | [facility] | | Patient Name: Parish Dickey Study Date: 12/19/2014 | [facility] | | Primary Care Provider: Cristopher Castro MD : | [facility] | | 1940 Age: 74 y.o. Gender: [...] [address] | [address] | [place], [place] | [phone] | | [facility] | | [address] | | | - IMAGING | | [...] of | | unspecified type of vessel, [place] or graft | + + documented in this encounter
--- OUTSIDE RECORDS SUMMARY | ~2019-11-01 | XMS | Encounter Summary ---
Demographics + + + | Address | [address] | | | [place] [address] | + + + | Home Phone | | + + + | Preferred Language | Unknown | + + + | Marital Status | | + + + | Yazidi Affiliation | Unknown | + + + | Race | Unknown | + + + | Ethnic Group | Unknown | + + + Author + + + | Author | [facility] | | | and Aashishana | + + + | Organization | [facility] | | | and Aashishana [...] Team Providers + +------+ + | Care Transformation Analyst Name | Role | Phone | + +------+ + | Cristopher Castro MD | PCP | | + +------+ + Reason for Visit + + + | Reason | Comments | + + + | Pulmonary Disease | 1 wk follow up/PFT | | Appointment | | + + + Encounter Details +--------+---------+ + + + | Date | Type | Department | Care Team | Description | +--------+---------+ + + + | 03/07/ | Office | [facility] | Oscar Morales, | COPD, very severe | | 2018 | Visit | PULMONARY [address] | MD [address] | ([facility]) (Primary Dx); | | | | [place], | [place], [place] | Need for influenza | | | | [place] [address] | [address] | vaccination; Need | | | | [phone] | | for pneumococcal | | | | | | vaccine | +--------+---------+ + + + Social History [...] + + + | Blood Pressure | 138/70 | 03/07/2018 12:52 PM | | | | | PDT | | + + + + + | Pulse | 72 | 03/07/2018 12:52 PM | | | | | PDT | | + + + + + | Temperature | - | - | | + + + + + | Respiratory Rate | - | - | | + + + + + | Oxygen Saturation | 96% | 03/07/2018 12:52 PM | Room Air | | | | PDT | | + + + + + | Inhaled Oxygen | - | - | | | Concentration | | | | + + + + + | Weight | 78.3 kg (172 lb 9.9 | 03/07/2018 12:52 PM | | | | oz) | PDT | | + + + + + | Height | 180.3 cm (5' 11") | 03/07/2018 12:52 PM | | | | | PDT | | + + + + + | Body Mass Index | 24.08 | 03/07/2018 12:52 PM | | | | | PDT | | + + + + + documented in this encounter Patient Instructions Patient Instructions Osacr Morales MD - 03/07/2018 1:00 PM PDT Fluticasone; Salmeterol inhalation powder Brand Names: Advair What is this medicine? FLUTICASONE; SALMETEROL (floo TIK a sone; antwan ME te role) inhalation is a combination of tw o medicines that decrease inflammation and help to open up the airways of your lungs. It is used to treat COPD. This medicine is also used to treat asthma. Do NOT use for an acute asth ma attack. Do NOT use for a COPD attack. How should I use this medicine? This medicine is inhaled through the mouth. Rinse your mouth with water after use. Make karmen e not to swallow the water. Follow the directions on the prescription label. Do not use a sp acer device with this inhaler. Take your medicine at regular intervals. Do not take your med icine more often than directed. Do not stop taking except on your doctor's advice. Make sure that you are using your inhaler correctly. Ask you doctor or health care provider if you cardenas ve any questions. A special MedGuide will be given to you by the pharmacist with each prescription and refill . Be sure to read this information carefully each time. Talk to your store stock help regarding the use of this medicine in children. Special care may be needed. What side effects may I notice from receiving this medicine? Side effects that you should report to your doctor or health child care coordinator as soon as p ossible: allergic reactions like skin rash or hives, swelling of the face, lips, or tongue chest pain dizziness or lightheaded fever or chills irregular heartbeat vision problems Side effects that usually do not require medical attention (report to your doctor or health child care coordinator if they continue or are bothersome): coughing, hoarseness, throat irritation headache nervousness stomach problems stuffy nose tremor What may interact with this medicine? Do not take this medicine with any of the following medications: MAOIs like Carbex, Eldepryl, Marplan, Nardil, and Parnate This medicine may also interact with the following medications: aminophylline or theophylline antiviral medicines for HIV or AIDS beta-blockers like metoprolol and propranolol certain antibiotics like clarithromycin, erythromycin, levofloxacin, linezolid, and teli thromycin certain medicines for fungal infections like ketoconazole, itraconazole, posaconazole, v oriconazole conivaptan diuretics medicines for colds medicines for depression or emotional conditions nefazodone vaccines What if I miss a dose? If you miss a dose, use it as soon as you remember. If it is almost time for your next dose , use only that dose and continue with your regular schedule, spacing doses evenly. Do not u se double or extra doses. Where should I keep my medicine? Keep out of the reach of children. Advair: Store at room temperature between 68 and 77 degrees F (20 and 25 degrees C). Do not leave your medicine in the heat or sun. Throw away 1 month after you open the package or wh enever the dose indicator reads 0, whichever comes first. Throw away unopened packages after the expiration date. Airduo Respiclick: Store at room temperature between 59 and 86 degrees F (15 and 30 degrees C). Avoid exposure to extreme heat, cold, or humidity. Throw away 1 month after you open th e package or whenever the dose indicator reads 0, whichever comes first. Throw away unopened packages after the expiration date. What should I tell my health care provider before I take this medicine? They need to know if you have any of these conditions: bone problems immune system problems diabetes heart disease or irregular heartbeat high blood pressure infection pheochromocytoma seizures thyroid disease worsening asthma an unusual or allergic reaction to fluticasone, salmeterol, other corticosteroids, other medicines, foods, dyes, or preservatives or trying to get breast-feeding What should I watch for while using this medicine? Visit your doctor for regular check ups. Tell your doctor or health child care coordinator if yo ur symptoms do not get better. Do not use this medicine more than every 12 hours. NEVER use this medicine for an acute asthma attack. You should use your short-acting rescue inhalers for this purpose. If your symptoms get worse or if you need your short-acting inha lers more often, call your doctor right away. If you are going to have surgery tell your doctor or health child care coordinator that you are using this medicine. Try not to come in contact with people with the chicken pox or measles. If you do, call your doctor. NOTE:This sheet is a summary. It may not cover all possible information. If you have questi ons about this medicine, talk to your doctor, pharmacist, or health care provider. Copyright 2018 [employer] documented in this encounter Progress Notes Oscar Morales MD - 03/07/2018 1:00 PM PDTFormatting of this note might be different f rom the original. Pulmonary Follow Up 03/07/2018 SARAH Dickey is a 78 y.o. 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 The last pulmonary clinic visit was on 9/18/18. Since their last appointment they feel like their breathing issues have been stable. They have not had any acute pulmonary illnesses. The patient has not required a prednisone taper since our last clinic appointment. Likewise Parish has not required antibiotics fo r a COPD exacerbation since our last clinic appointment. The patient is currently on a daily regimen of Advair 500/50 (dosage requires confirmation) for their COPD. this is different from an understanding that the patient was using Flovent and not Advair at the time of his last clinic appointment. They do feel like this medicatio n regimen is/are controlling their symptoms. Currently he is using their short acting [facility] h[facility]ator, Ventolin, 0 times a day. They are using their albuterol and ipratropium nebulizer , 1 times a week. Currently the patient is able to walk 150 feet at their own pace on level ground before dev eloping dyspnea. They are not exercising regularly. Their typical exercise consists of minim al walking. Parish are not enrolled in cardiac/pulmonary rehabilitation. They have not co mpleted pulmonary rehabilitation in the past. Parish does not cough chronically and does not produce mucous. They have not had hemopty sis since our last appointment. He has not been evaluated for nocturnal oxygen. They have not reported recent symptoms of nasal congestion, runny nose or post nasal drip. The patient have not received this year's influenza vaccination. They are not up to date w ith their Pneumovax and Prevnar 13. 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 His smoking use included Cigarettes. [...] mg by mouth Daily., Disp: , Rfl: fluticasone (FLOVENT HFA) 220 mcg/puff inhaler, Inhale 1 puff into the lungs 2 times d aily., Disp: , Rfl: Insulin NPH Isophane & Regular (NOVOLIN 70/30 RELION SC), Inject 8 Units under the ski n 2 times daily., Disp: , Rfl: ipratropium [...] by mouth Daily., Disp: , Rfl : montelukast (SINGULAIR) 10 mg tablet, Take 10 mg by mouth Daily., Disp: , Rfl: No current facility-administered medications for this visit. Immunizations: Immunization History Administered Date(s) Administered INFLUENZA 63 Y OR >, TRIVALENT HIGH-DOSE 02/20/2017 Objective BP 138/70 | Pulse 72 | Ht 1.803 m (5' 11") | Wt 78.3 kg (172 lb 9.9 oz) | SpO2 96% Comm ent: Room Air | BMI 24.08 kg/m Physical Exam Data: Chest x-ray(s) from 02/28/18 and were reviewed and interpreted in clinic with the patient. T he x-ray(s) shows mild hyperinflation without other significant abnormalities. Walking oximetry performed 03/07/18: Patient walked 800 feet over 3.5 minutes. His O2 satur ation began at 96% and veto to 91%. Pulmonary function tests were performed on 03/07/18 and were reviewed with the patient today . They show postbronchodilator FEV1 of 0.96, 29% of predicted, residual volume of 5.54, 205 % of predicted and an uncorrected DLCO of 13.1, 42% of predicted. Assessment 1. COPD Gold stage IV. Currently treated with Advair and as needed Ventolin, albuterol/ ipratropium via nebulizer. Since the patient's last clinic appointment there is been clarification regarding his inhal ed medications. It appears that Parish is currently using Advair. There is some ambiguit y regarding the dose. Based on the patient's use of short acting bronchodilators there is no immediate need to ad d additional medications at this time. Given that his primary abnormality appears to be emphysema/COPD we will discontinue Singula ir. No evidence of exertional desaturation. The patient is in need of a seasonal influenza vaccination, Prevnar and in 12 months a Pneu movax. Plan 1. Mr. Dickey will bring his Advair in at the time of his next clinic appointment to clar akash the dose. 2. High-dose seasonal influenza vaccination today. 3. Prevnar 13 today. 4. Discontinue Singulair. 5. Pulmonary clinic follow-up appointment to assess the status of the patient's symptoms i n 4 weeks' time. CC: Cristopher Castro MD P M PDTdocumented in this encounter Plan of Treatment +--------+---------+ + + + | Date | Type | Specialty | Care Team | Description | +--------+---------+ + + + | 11/18/ | Office | Pulmonology | Oscar Morales, | | | 2020 | Visit | | MD [address] | | | | | | [place] | | | | | | [address] | | | | | | | | +--------+---------+ + + + documented as of this encounter Visit Diagnoses + + | Diagnosis | + + | COPD, very severe (HCC) - Primary Chronic airway obstruction, not elsewhere | | classified | + + | Need for influenza vaccination Need for prophylactic vaccination and inoculation | | against influenza | + + | Need for pneumococcal vaccine Need for prophylactic vaccination against streptococcus | | pneumoniae (pneumococcus) | + + documented in this encounter
--- OUTSIDE RECORDS SUMMARY | ~2019-11-01 | XMS | Encounter Summary ---
Demographics + + + | Address | [address] | | | [place] [address] | + + + | Home Phone | | + + + | Preferred Language | Unknown | + + + | Marital Status | | + + + | Anglican Affiliation | Unknown | + + + | Race | Unknown | + + + | Ethnic Group | Unknown | + + + Author + + + | Author | [facility] | | | and Aashishana | + + + | Organization | [facility] | | | and Aashishana [...] Team Providers + +------+ + | Care Doctor Of Veterinary Medicine Name | Role | Phone | + [...] [address] | | | | | [place], | [place], [place] | | | | | [place] [address] | [address] | | | | | [phone] | | | +--------+ + + + [...] | | | | | | [place] | | | | | | [address] | | | | | | | | +--------+---------+ + + + documented as of this encounter Visit Diagnoses Not on filedocumented in this encounter"
--- OUTSIDE RECORDS SUMMARY | ~2019-11-01 | XMS | Encounter Summary ---
Demographics + + + | Address | [address] | | | [place] [address] | + + + | Home Phone | | + + + | Preferred Language | Unknown | + + + | Marital Status | | + + + | Hindu Affiliation | Unknown | + + + | Race | Unknown | + + + | Ethnic Group | Unknown | + + + Author + + + | Author | [facility] | | | and Aashishana | + + + | Organization | [facility] | | | and Aashishana [...] Team Providers + +------+ + | Care Automobile Mechanic Name | Role | Phone | + +------+ + | Cristopher Castro MD | PCP | | + +------+ + Reason for Visit + + + | Reason | Comments | + + + | Pulmonary Disease | Consult/COPD | | Appointment | | + + + Evaluate & Treat (Routine) +--------+--------+ + + + + | Status | Reason | Specialty | Diagnoses / | Referred By | Referred To | | | | | Procedures | Contact | Contact | +--------+--------+ + + + + | Closed | | Pulmonology | Diagnoses | Castro, | Andrew, | | | | | Chronic | Cristopher | MD Oscar | | | | | obstructive | MD Jayme | [address] | | | | | pulmonary | [address] | [place], | | | | | disease, | [place] | [place] [address] | | | | | unspecified | [place], [place] | Phone: | | | | | ([facility]) | [address] | [phone] | | | | | Procedures | Phone: | Fax: | | | | | [facility] | [phone] | [phone] | | | | | | Fax: | | | | | | | [phone] | | +--------+--------+ + + + + Encounter Details +--------+---------+ + + + | Date | Type | Department | Care Team | Description | +--------+---------+ + + + | 02/28/ | Office | [facility] | Oscar Morales, | Centrilobular | | 2018 | Visit | PULMONARY [address] | MD [address] | emphysema (HCC) | | | | [place], | [place], [place] | | | | | [place] [address] | [address] | | | | | [phone] | | | +--------+---------+ + + + [...] + + + | Blood Pressure | 144/72 | 02/28/2018 1:02 PM | | | | | PDT | | + + + + + | Pulse | 86 | 02/28/2018 1:02 PM | | | | | PDT | | + + + + + | Temperature | - | - | | + + + + + | Respiratory Rate | - | - | | + + + + + | Oxygen Saturation | 97% | 02/28/2018 1:02 PM | Room Air | | | | PDT | | + + + + + | Inhaled Oxygen | - | - | | | Concentration | | | | + + + + + | Weight | 77.9 kg (171 lb 11.8 | 02/28/2018 1:02 PM | | | | oz) | PDT | | + + + + + | Height | 180.3 cm (5' 11") | 02/28/2018 1:02 PM | | | | | PDT | | + + + + + | Body Mass Index | 23.95 | 02/28/2018 1:02 PM | | | | | PDT | | + + + + + documented in this encounter Patient Instructions Patient Instructions Oscar Morales MD - 02/28/2018 1:00 PM PDT DiagnosingCOPD Your healthcare provider will use your past health history, a physical exam, andcertain t eststodiagnose COPD. Health history Your healthcare provider learns about your health history by asking questions. Topics inclu de: History of present illness. Tell your healthcare provider about your symptoms.Alsote ll him or her how long you have had them. Past medical and surgical history. Share other health problems and surgery you have had. Family history. Report serious health problems in close family members. This is especial ly true of any lung problems. Social and environmental history. The most important factor in COPD is whether you smoke or have smoked in the past. You should also tell your provider if you have been around seco ndhand smoke, harmful chemicals, or air pollution. Functional assessment. Report whether breathing gets in the way of your daily activities . Physical exam Your provider will examine you. He or she will check your heart and lungs with a stethoscop e. The focus will be on your airways, including your nose and throat. Diagnostic tests Pulmonary function testsmeasure the flow of air into and out of your lungs. They also check how muchair your lungs can hold. The most common pulmonary function test is spiromet ry. This measures how fast and how much air you can blow out (exhale). This test is importan t to help diagnose COPD. Pulse oximetryshows how much oxygen is in your blood (oxygen saturation). This may be done at rest. It may also be done during and after exercise. Arterial blood gas testsmeasure levels of oxygen and carbon dioxide in your blood. Chest X-raysshow the size and shape of your lungs. They can also show certain problems in the lungs. CTscansshow detailed images of the lungs. Date Last Reviewed: 03/13/201619998010-5582 [employer]. [address] [place] [address], [place] [address]. All righ ts reserved. This information is not intended as a substitute for professional medical care. Always follow your healthcare professional's instructions. documented in this encounter Progress Notes Oscar Morales MD - 02/28/2018 1:00 PM PDTFormatting of this note might be different f rom the original. Pulmonary Consult Note 02/28/2018 HPI Parish Dickey is a 78 y.o. male patient of Cristopher Castro MD here today for e valuation of COPD. Elton apparently developed asthma in his 30s. He was hospitalized for approximately 2 week s at that time. For a significant period of time the patient used as needed Primatene Mist. In the past Elton used Flovent but is under the impression that Flovent was recently gautam ed to Ventolin. Related to insurance preference. He is used Singulair for several years bu t is uncertain as to whether it helps his symptoms. The patient smoked cigarettes for 33 years at three quarters of a pack of cigarettes a day. 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 In late November the patient developed worsening shortness of breath necessitating increase use of his Ventolin/nebulizer. In addition to shortness of breath Elton was wheezing. No wors ening cough was noted. In January he contacted Dr. Castro will ultimately treated him with a course of prednisone with some improvement of his symptoms. Currently they reports their main symptoms at this point to be VILLANUEVA. Parish are able to w alk 150 feet at their own pace on level ground before developing shortness of breath. The di stance walked is predominately limited by dyspnea. One year ago, they feel that they could w alk 600 feet. Triggers for their shortness of breath include exertion and lifting things. R elieving factors include resting. They do not exercise regularly. Parish are not currently enrolled in pulmonary rehabilita tion. They have not completed pulmonary rehabilitation in the past. Elton has Ventolin which she is currently not requiring an albuterol/ipratropium (which she mixes together) but is not currently using. The patient does not cough chronically, and does not produce mucous. They have not had hemo ptysis in the last 6 months. They have had to be hospitalized for breathing issues in the past. In the spent 17 days in the hospitals with asthma. Parish has not required intubation in the past. They cardenas ve not had to go to the emergency room in the last year related to breathing problems. They have had 1 exacerbations in the past year requiring treatment with prednisone and 0 tr eatments with antibiotics. Helped symptoms. Parish has not been evaluated for nocturnal oxygen. 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) Other seborrheic keratosis Pure hypercholesterolemia Unspecified asthma(493.90) 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 Vertigo Wears dentures full upper plate Past Surgical History Past Surgical History: Procedure Laterality Date CATARACT REMOVAL 2007 bilateral COLONOSCOPY 01/08/2014 COLONOSCOPY; Laterality: N/A; Surgeon: Thad Fatima MD; [facility] 1978 ulcer surgery MASS EXCISION Left 08/23/2017 Procedure: Excision of Left Arm Skin Melanomas + [place] Node Biopsy; Surgeon: Jos uribe MD; Location: [facility] MAIN OR TONSILLECTOMY AND ADENOIDECTOMY 1947 VASECTOMY 1975 Family History: Family History Problem Relation Age of Onset Diabetes Mother Colon cancer Mother Cancer Father lung Parkinsonism Other Lung cancer Sister Lung cancer Brother Lung cancer Brother Lupus Brother Heart failure Sister Lupus Sister Social History: He reports that he quit [...] mg by mouth Daily., Disp: , Rfl: Immunizations: Immunization History Administered Date(s) Administered INFLUENZA 63 Y OR >, TRIVALENT HIGH-DOSE 02/20/2017 Review of Systems Constitutional: Denies fever, chills, sweats and unexpected weight change. Sleep: Denies excessive snoring, and daytime sleepiness. Eyes: Denies vision change, and eye irritation. ENT: Denies earache, tinnitus, nasal congestion, nosebleeds, sore throat, and hoarseness. Resp: Denies hemoptysis or pleuritic chest pain. CV: Denies neck/chest/jaw pain with exertion, palpitations, orthopnea and claudication. GI: Denies trouble swallowing, chronic heartburn, nausea, vomiting, abdominal pain, diarrh ea, melena, and hematochezia. Denies dysuria, hematuria, urinary frequency, difficulty emptying bladder. Musculoskeletal: Denies joint pain/stiffness, joint swelling, muscle cramps, muscle weaknes s. Derm: Denies rash or suspicious lesions. Neurologic: Denies frequent headaches, seizures, tremors, numbness or tingling in hands or feet, vertigo, and fall or difficulty walking in past 6 months Psych Denies depression, anxiety, suicidal ideation. Endo Denies cold intolerance, heat intolerance. Heme Denies abnormal bruising, bleeding, and enlarged lymph nodes. Allergy Denies urticaria, allergic rash, hay fever Objective BP 144/72 | Pulse 86 | Ht 1.803 m (5' 11") | Wt 77.9 kg (171 lb 11.8 oz) | SpO2 97% Com ment: Room Air | BMI 23.95 kg/m General Appearance: Alert, cooperative, no distress, appears stated age. Head: Normocephalic, without obvious abnormality, atraumatic. Eyes: PERRL, conjunctiva/corneas clear. Ears: Normal external appearance, TM's without abnormality. Nose: Nasal mucosa normal, septum midline, no abnormal drainage or sinus tenderness. Throat: Lips, mucosa, and tongue normal; teeth/dentures normal. MP 2 3 . Neck: Supple, symmetrical, no adenopathy, normal JVD Lungs: No accessory muscle use, breath sounds are reduced to auscultation bilaterally, no wheezes, no crackles or rhonchi. No dullness to percussion. Chest Wall: No tenderness or deformity. Heart: Regular rate and rhythm, S1, S2 normal, no murmur, no rub or gallop Abdomen: Soft, non-tender. No hepatosplenomegaly. Extremities: Extremities normal, atraumatic, no cyanosis, clubbing. Edema no Pulses: Radial pulses 2+ and symmetric Skin: Warm and dry Lymph nodes: No abnormal cervical or supraclavicular nodes Neurologic: Gait normal Data: Chest x-ray(s) from 08/07/15 were reviewed today with the patient present. The x-ray(s) is a portable and shows a small nodular density in the left lower lobe. Chest CT(s) from 08/12/17 were reviewed today with the patient present. The CT(s) is not avai lable for my review though the report references centrilobular emphysema with no pulmonary n odules. Several hypodensities were noted in the liver. Cristopher Castro MD's notes were reviewed in clinic today. Assessment Elton Dickey is an 78-year-old prior smoker who presents at the request of Cristopher Hernández for pulmonary consultation regarding apparent COPD. The patient's past medical history is significant for a diagnosis of "asthma" in the late . Near the time of his asthma diagnosis Elton was hospitalized for nearly 3 weeks. The patient treating her shortness of breath for a period of time with Primatene Mist. Subsequ ent medications include Singulair, Flovent and short acting bronchodilators in the form of a lbuterol and ipratropium. Elton is no longer using his Flovent. He questions whether Singulair helps his symptoms. The patient is not currently requiring Ventolin or DuoNeb. Recently the patient had symptoms consistent with an exacerbation of COPD which required tr eatment with prednisone. Based on the patient's CT scan report it would appear that component of emphysema is prese nt. It is also possible that there is a component of asthma given the timing of the onset o f his symptoms. I have suggested to Mr. Dickey that we perform a chest x-ray given that his symptoms have recently worsened and he has a history of melanoma/smoking. Likewise I have suggested to Mr. Dickey that he have pulmonary function tests obtained to help quantitate the severity of airflow obstruction and whether diffusion abnormalities cons istent with emphysema are present. Lastly the patient would benefit from walking oximetry a ssessment. No changes in his COPD/asthma medication regimen will be made at this time. However given the patient's lack of response to Singulair it would be reasonable to discontinue the medica tion in the future when additional COPD medications are initiated. Plan 1. Spirometry, lung volumes and diffusion capacity. 2. Walking oximetry. 3. PA/lateral chest x-ray. 4. Will offer patient Prevnar 13 and high-dose seasonal influenza vaccination with follow- up. 5. Pulmonary clinic follow-up appointment within the next 7 days given the patient's antic ipated time away from [place] starting in early March. CC: Cristopher Castro MD P M PDTdocumented in this encounter Plan of Treatment +--------+---------+ + + + | Date | Type | Specialty | Care Team | Description | +--------+---------+ + + + | 11/18/ | Office | Pulmonology | Oscar Morales, | | | 2020 | Visit | | MD [address] | | | | | | [place] | | | | | | [address] | | | | | | | | +--------+---------+ + + + documented as of this encounter Procedures + +--------+ + + + | Procedure Name | Priori | Date/Time | Associated Diagnosis | Comments | | | ty | | | | + +--------+ + + + | IMAGING REPORT - | | 08/12/2017 | | Results for this | | EXTERNAL SCAN | | 12:00 AM | | procedure are in the | | | | PST | | results section. | + +--------+ + + + | IMAGING REPORT - | | 07/22/2016 | | Results for this | | EXTERNAL SCAN | | 12:00 AM | | procedure are in the | | | | PST | | results section. | + +--------+ + + + documented in this encounter Results Pulmonary function test full PFT; home oxygen evaluation (03/07/2018 3:05 PM PDT) + + + | Narrative | Performed At | + + + | Oscar | | | MD Andrew 03/07/2018 15:07 PULMONARY FUNCTION TESTING | | | SPIROMETRY: The prebronchodilator FVC was 2.61 L or 63 % of predicted. | | | The prebronchodilator FEV1 was 0.92 L or 28 % of predicted. FEV1/FVC | | | ratio was 35 %. Following inhalation of albuterol the patient's FEV1 | | | lisa to 0.96, 29% of predicted LUNG VOLUMES: The total lung capacity | | | was 8.23 L or 114 % of predicted. The residual volume was 5.54 L or | | | 205 % of predicted. RV/TLC ratio was 174 % of predicted. DIFFUSION | | | CAPACITY: The diffusion capacity was 13.1 mL/mmHg per minute or 42 % | | | of predicted. IMPRESSION: Spirometry is consistent with very severe | | | obstructive physiology. Lung volume testing is consistent with gas | | | trapping physiology. Diffusion capacity is severely reduced and is not | | | corrected for measured hemoglobin. Taking into account the patient's | | | smoking history these pulmonary function tests are consistent with | | | those seen with Gold stage IV COPD. Test performed: | | | 03/07/18Electronically signed by: Oscar Morales MD 03/07/2018 | | | [facility] | | |IMPRESSION: Spirometry is consistent with very severe obstructive | | |physiology. Lung volume testing is consistent with gas trapping | | |physiology. Diffusion capacity is severely reduced and is not | | |corrected for measured hemoglobin. | | | | | |Taking into account the patient's smoking history these pulmonary | | |function tests are consistent with those seen with Gold stage IV | | |COPD. | | | | | |Test performed: 03/07/18 | | |Electronically signed by: Oscar Morales MD 03/07/2018 15:05 | | |[facility] | | + + + XR Chest PA and Lateral (02/28/2018 2:10 PM PDT) + + | Specimen | + + | | + + + + + | Narrative | Performed At | + + + | XR CHEST PA AND LATERAL 02/28/2018 2:10 PM HISTORY: Please | [facility] | | evaluate patient with centrilobular emphysema. COMPARISON: | | | 08/07/2015. Findings: Heart size is normal. There is | | | atherosclerosis of the aorta. Mediastinum is unremarkable. Central | | | pulmonary vasculature is normal. There is mild hyperinflation of the | | | lungs. Previously described small nodular density in the left lower | | | lung lateral aspect is not seen. There is mild spondylosis. Clips are | | | in the midline of the lower chest. IMPRESSION - No acute | | | findings. Previously described small nodular density in left lower | | | lung lateral aspect not observed, likely represented overlapping | | | structures. Dictated and Signed by: Timmy Saul MD | | | Electronically signed: 02/28/2018 3:02 PM | | + + + + + | Procedure Note | + + | Edward, Rad Results In - 02/28/2018 3:05 PM PDT XR CHEST PA AND LATERAL 02/28/2018 2:10 | | PMHISTORY: Please evaluate patient with centrilobular emphysema.COMPARISON: | | 08/07/2015.Findings:Heart size is normal. There is atherosclerosis of the aorta. | | Mediastinum isunremarkable. Central pulmonary vasculature is normal. There is | | mildhyperinflation of the lungs. Previously described small nodular density in theleft | | lower lung lateral aspect is not seen. There is mild spondylosis. Clips arein the | | midline of the lower chest.IMPRESSION -No acute findings.Previously described small | | nodular density in left lower lung lateral aspect notobserved, likely represented | | overlapping structures.Dictated and Signed by: Tmimy Saul MD Electronically signed: | | 02/28/2018 3:02 PM | |left lower lung lateral aspect is not seen. There is mild spondylosis. Clips are | |in the midline of the lower chest. | | | |IMPRESSION - | |No acute findings. | | | |Previously described small nodular density in left lower lung lateral aspect not | |observed, likely represented overlapping structures. | | | |Dictated and Signed by: Timmy Saul MD | | Electronically signed: 02/28/2018 3:02 PM | + + + +---------+ + + | Performing | Address | City/State/Zipcode | Phone Number | | Organization | | | | + +---------+ + + | [facility] | | | | + +---------+ + + IMAGING REPORT - EXTERNAL SCAN (08/12/2017 12:00 AM PST) + + + | Narrative | Performed At | + + + | Ordered by an | | | unspecified provider. | | + + + IMAGING REPORT - EXTERNAL SCAN (07/22/2016 12:00 AM PST) + + + | Narrative | Performed At | + + + | Ordered by an | | | unspecified provider. | | + + + documented in this encounter Visit Diagnoses + + | Diagnosis | + + | Centrilobular emphysema (HCC) | + + documented in this encounter
--- OUTSIDE RECORDS SUMMARY | ~2019-11-01 | XMS | Encounter Summary ---
Demographics + + + | Address | [address] | | | [place] [address] | + + + | Home Phone | | + + + | Preferred Language | Unknown | + + + | Marital Status | | + + + | [employer] Affiliation | Unknown | + + + | Race | Unknown | + + + | Ethnic Group | Unknown | + + + Author + + + | Author | [facility] | | | and Aashishana | + + + | Organization | [facility] | | | and Aashishana | [...] Team Providers + +------+ + | Care Coat Finisher Name | Role | Phone | + +------+ + PCP | Unavailable | + +------+ + Encounter Details +--------+ + + + + | Date | Type | Department | Care Team | Description | +--------+ + + + + | 12/07/ | Abstract | [facility] | Thad Fatima MD | | | 2013 | | GASTROENTEROLOGY | [address] | | | | | [address] | [address] [place] | | | | | [address] [place], [place] | [address] | | | | | [address] | | | | | | [phone] | | | +--------+ + + + + Social History + +-------+ +--------+------+ | Tobacco Use | Types | Packs/Day | Years | Date | | | | | Used | | + +-------+ +--------+------+ | Former Smoker | | | | | + +-------+ +--------+------+ + + +---------+ + | Alcohol Use | Drinks/Week | oz/Week | Comments | + + +---------+ + | Not Asked | | | | + + +---------+ [...] + + + | Blood Pressure | 150/80 | 11/26/2013 11:26 AM | | | | | PDT | | + + + + + | Pulse | 88 | 11/26/2013 11:26 AM | | | | | PDT | | + + + + + | Temperature | - | - | | + + + + + | Respiratory Rate | 16 | 11/26/2013 11:26 AM | | | | | PDT | | + + + + + | Oxygen Saturation | - | - | | + + + + + | Inhaled Oxygen | - | - | | | Concentration | | | | + + + + + | Weight | 79.8 kg (176 lb) | 11/26/2013 11:26 AM | | | | | PDT | | + + + + + | Height | 180.3 cm (5' 11") | 11/26/2013 11:26 AM | | | | | PDT | | + + + + + | Body Mass Index | 24.55 | 11/26/2013 11:26 AM | | | | | PDT | | + + + + + documented in this encounter Plan of Treatment +--------+---------+ + + + | Date | Type | Specialty | Care Team | Description | +--------+---------+ + + + | 11/18/ | Office | Pulmonology | Oscar Morales, | | | 2019 | Visit | | MD [address] | | | | | | [place] | | | | | | [phone] | | | | | | | | +--------+---------+ + + + documented as of this encounter Visit Diagnoses Not on filedocumented in this encounter
--- OUTSIDE RECORDS SUMMARY | ~2019-11-01 | XMS | Encounter Summary ---
Demographics + + + | Address | [address] | | | [place] [address] | + + + | Home Phone | | + + + | Preferred Language | Unknown | + + + | Marital Status | | + + + | Sabianism Affiliation | Unknown | + + + | Race | Unknown | + + + | Ethnic Group | Unknown | + + + Author + + + | Author | [facility] | | | and Aashishana | + + + | Organization | [facility] | | | and [...] Team Providers + +------+ + | Care Gambreler Name | Role | Phone | + +------+ + PCP | Unavailable | + +------+ + Reason for Referral Evaluate & Treat (Routine) +--------+ + + + + + | Status | Reason | Specialty | Diagnoses / | Referred By | Referred To | | | | | Procedures | Contact | Contact | +--------+ + + + + + | Closed | Specialty | Gastroenterol | Diagnoses | [facility], | [facility], | | | Services | ogy | Special | Thad Baldwin MD | Thad Baldwin MD | | | Required | | screening | [address], | | | | | for | [place], [place] | [address] | | | | | malignant | [address] [place] | [place], | | | | | neoplasms, | [place], [place] | [place] [address] | | | | | colon | [address] | Phone: | | | | | Family | Phone: | [phone] | | | | | history of | [phone] | Fax: | | | | | malignant | Fax: | [phone] | | | | | neoplasm of | [phone] | | | | | | gastrointest | | | | | | | inal tract | | | +--------+ + + + + + Reason for Visit + + + | Reason | Comments | + + + | Appointment | schedule colonoscopy procedure only | + + + Encounter Details +--------+ + + + + | Date | Type | Department | Care Team | Description | +--------+ + + + + | 12/06/ | Telephone | [facility] | Thad Fatima MD | Appointment | | 2013 | | GASTROENTEROLOGY | [address], [place] | (schedule | | | | [address] [place] | [address] [place], [place] | colonoscopy | | | | [address] [place], [place] | [address] | procedure only) | | | | [address] | | | | | | [phone] | | | +--------+ + + + + Social History + +-------+ +--------+------+ | Tobacco Use | Types | Packs/Day | Years | Date | | | | | Used | | + +-------+ +--------+------+ | Never Assessed | | | | | + +-------+ +--------+------+ + + + | Sex Assigned at [...] | | | | | [place] | | | | | | [id number] | | | | | | | | +--------+---------+ + + + + + +--------+ + + | Name | Type | Priori | Associated Diagnoses | Order Schedule | | | | ty | | | + + +--------+ + + | Ambulatory referral | Outpatient | Routin | Special screening | Expected: | | to Gastroenterology | Referral | e | for malignant | 01/08/2014, Expires: | | (harri) | | | neoplasms, colon | 12/06/2014 | | | | | Family history of | | | | | | malignant neoplasm | | | | | | of gastrointestinal | | | | | | tract | | + + +--------+ + + documented as of this encounter Visit Diagnoses + + | Diagnosis | + + | Special screening for malignant neoplasms, colon - Primary | + + | Family history of malignant neoplasm of gastrointestinal tract | + + documented in this encounter"
--- OUTSIDE RECORDS SUMMARY | ~2019-11-01 | XMS | Encounter Summary ---
Demographics + + + | Address | [address] | | | [place] [address] | + + + | Home Phone | | + + + | Preferred Language | Unknown | + + + | Marital Status | | + + + | Lutheran Affiliation | Unknown | + + + | Race | Unknown | + + + | Ethnic Group | Unknown | + + + Author + + + | Author | [facility] | | | and Aashishana | + + + | Organization | [facility] | | | and Aashishana [...] Team Providers + +------+ + | Care Ground Equipment Mechanic Name | Role | Phone | + +------+ + | Cristopher Castro MD | PCP | | + +------+ + Encounter Details +--------+ + + + + | Date | Type | Department | Care Team | Description | +--------+ + + + + | 12/19/ | [facility] | [facility] | Nadine Mahan, | | | 2014 | Encounter | MED CTR NUCLEAR | [address] | | | | | MEDICINE [address] | [place] | | | | | [place], | [address] | | | | | [place] [address] | | | | | | [phone] | | | +--------+ + + + [...] + + documented as of this encounter Medications at Time of Discharge [...] 2019 | Visit | | [address] | | | | | | [place] | | | | | | [address] | | | | | | | [...] Diagnoses Not on filedocumented in this encounter Administered Medications + +--------+ + +------+------+ | Medication Order | MAR | Action | Dose | Rate | Site | | | Action | Date | | | | + +--------+ + +------+------+ | technetium TC-99M sestamibi | Given | 12/20/19 | 30 | | | | (CARDIOLITE) injection 30 | | 15 11:45 | -millicu | | | | millicurie 30 -millicurie, | | AM PDT | sandoval | | | | Intravenous, ONCE PRN, Other, | | | | | | | Starting Amber 12/19/14 at 1145, For | | | | | | | 1 dose, Nuclear Medicine | | | | | | + +--------+ + +------+------+ +---+---+ | | | +---+---+ documented in this encounter"
--- OUTSIDE RECORDS SUMMARY | ~2019-11-01 | XMS | Encounter Summary ---
Demographics + + + | Address | [address] | | | [place] [address] | + + + | Home Phone | | + + + | Preferred Language | Unknown | + + + | Marital Status | | + + + | Sabianism Affiliation | Unknown | + + + | Race | Unknown | + + + | Ethnic Group | Unknown | + + + Author + + + | Author | [facility] | | | and Aashishana | + + + | Organization | [facility] | | | and [...] Team Providers + +------+ + | Care Rotary Drum Dyer Name | Role | Phone | + +------+ + | Cristopher Castro MD | PCP | | + +------+ + Encounter Details +--------+ + + + + | Date | Type | Department | Care Team | Description | +--------+ + + + + | 08/23/ | Anesthesia | [facility] | Oscar Mak | | | 2018 | Event | MED CTR OR INTRA OP | MD Yolanda [address] | | | | | [address] | [address] [place] | | | | | [place] | [address] | | | | | [address] | | | | | | [phone] | | | +--------+ + + + + Anesthesia Record + + + + + | Procedure Name | Responsible | Anesthesia Start | Anesthesia Stop Time | | | Anesthesiologist | Time | | + + + + + | Excision of Left Arm | Oscar Mak, | 08/23/17 09 | 08/23/17 1046 | | Skin Melanomas + | MD | | | | Basin Node Biopsy | | | | | (Left Arm Upper) | | | | + + + + + +----+---+ + + | Da | T | Event | Comment | | te | i | | | | | m | | | | | e | | | +----+---+ + + | 03 | 0 | | | | /1 | 9 | | | | 3/ | 0 | | | | 20 | 1 | | | | 18 | | | | +----+---+ + + | | 0 | An Checkout | Pre-use anesthesia machine/equipment checkout. | | | 9 | | | | | 0 | | | | | 9 | | | +----+---+ + + | | 0 | An Start | Reassessment prior to anesthesia induction/procedure. | | | 9 | | | | | 1 | | | | | 3 | | | +----+---+ + + | | 0 | Antibiotic | | | | 9 | Given | | | | 1 | | | | | 3 | | | +----+---+ + + | | 0 | Preoxygenat | | | | 9 | ed | | | | 1 | | | | | 6 | | | +----+---+ + + | | 0 | An | | | | 9 | Induction | | | | 1 | | | | | 9 | | | +----+---+ + + | | 0 | An | | | | 9 | Intubation | | | | 2 | | | | | 0 | | | +----+---+ + + | | 0 | AN Bite | | | | 9 | Block | | | | 2 | | | | | 1 | | | +----+---+ + + | | 0 | Randolph | | | | 9 | 43-degrees | | | | 2 | | | | | 6 | | | +----+---+ + + | | 0 | Pre-Procedu | | | | 9 | ral Timeout | | | | 5 | Completed | | | | 3 | | | +----+---+ + + | | 0 | First | | | | 9 | Inc/Proc St | | | | 5 | | | | | 6 | | | +----+---+ + + | | 1 | Randolph off | | | | 0 | | | | | 3 | | | | | 3 | | | +----+---+ + + | | 1 | Extubated | | | | 0 | Awake | | | | 3 | | | | | 3 | | | +----+---+ + + | | 1 | An Stop | Patient handed off to recovery nurse. | | | 4 | | | | | 6 | | | +----+---+ + + +------+ | Meds | +------+ + + + | Name | Total | + + + | midazolam | 2 mg | + + + | propofol | 150 mg | + + + | propofol | 101.66 mg | + + + | lidocaine 2% (PF) | 60 mg | + + + | ondansetron | 4 mg | + + + | Phenylephrine 100mcg/mL SYRINGE | 200 mg | + + + | ceFAZolin (ANCEF, KEFZOL) 100 | 1 g | | mg/mL IV syringe 1 g | | + + + | HYDROmorphone | 1 mg | + + + | lactated ringers (LR) infusion | 950 mL | + + + + + | Name | + + | N2O Flow Rate (L/Min) | + + | O2 Flow Rate (L/Min) | + + | Insp O2 | + + | Exp SEV | + + | Exp WENDI | + + | Air Flow Rate (L/Min) | + + + + | No blood administrations on file. | + + +--------+ + + + | Type | Details | Placement | Removal | +--------+ + + + | Periph | 08/23/17; 0848; Left; Wrist; | 08/23/17 0848 by | 08/23/17 1602 by | | eral | [id number] catheter system; | Alexis Ferreira RN | Vicky Luna RN | | IV | 18 gauge; topical anesthetic | | | | | spray applied, tolerated well, | | | | | appears comfortable; 08/23/17; | | | | | 1602 | | | +--------+ + + + | Airway | Placement Date: 08/23/17; | 08/23/17918 by | 08/23/17 1033 by | | | Placement Time: 918; Mask | Oscar Mak, | Oscar Mak, | | | Ventilation: EZ; Airway Type: | MD | MD | | | laryngeal mask, non-disposable; | | | | | Size: 4; Tube Reference Point: | | | | | secure and patent; Trauma: none; | | | | | Placement Check: bilateral chest | | | | | rise, breath sounds equal | | | | | bilaterally, exhaled CO2 | | | | | detection device; Removal Date: | | | | | 08/23/17; Removal Time: 1033 | | | +--------+ + + + | Read | 08/23/17; 1000 (in OR); Left; | 08/23/17 1000 by | 08/23/17 1602 by | | only - | lateral; axilla; (sentinal node | Justice Mary RN | Vicky Luna RN | | | bx); 08/23/17; 1602 | | | | Incisi | | | | | on | | | | +--------+ + + + | Read | 08/23/17; 1014; Left; arm; | 08/23/17 1014 by | 08/23/17 1602 by | | only - | 08/23/17; 1602 | Caitlin Ochoa RN | Vicky Luna RN | | | | | | | Incisi | | | | | on | | | | +--------+ + + + documented in this encounter Social History + + + +--------+ + | Tobacco Use | Types | Packs/Day | Years | Date | | | | | Used | | + + + +--------+ + | Former Smoker | Cigarettes | | 23 | Quit: 06/13/1979 | + + + [...] | | | | | | [place] | | | | | | [address] | | | | | | | | +--------+---------+ + + + documented as of this encounter Visit Diagnoses Not on filedocumented in this encounter Administered Medications + +--------+ +------+------+------+ | Medication Order | MAR | Action | Dose | Rate | Site | | | Action | Date | | | | + +--------+ +------+------+------+ | ceFAZolin (ANCEF, KEFZOL) 100 | Given | 08/24/19 | 1 g | | | | mg/mL IV syringe 1 g 1 g, | | 18 9:13 | | | | | Intravenous, Administer over 30 | | AM PDT | | | | | Minutes, Prior to Incision, | | | | | | | Starting 08/23/17 at 0216, For | | | | | | | 1 dose, administer within 1 hour | | | | | | | of incision, Pre-op, | | | | | | | Indications: Surgical Prophylaxis | | | | | | + +--------+ +------+------+------+ +---+---+ | | | +---+---+ + +-------+ +--------+---+---+ | HYDROmorphone (DILAUDID) 2 | Given | 08/24/19 | 0.5 mg | | | | mg/mL injection Intravenous, | | 18 10:11 | | | | | PRN, Pain, Starting 08/23/17 | | AM PDT | | | | | at 1011, Anesthesia Intra-op | | | | | | + +-------+ +--------+---+---+ +-------+ +--------+---+---+ | Given | 08/24/19 | 0.5 mg | | | | | 18 9:45 | | | | | | AM PDT | | | | +-------+ +--------+---+---+ +---+---+ | | | +---+---+ + +-------+ +-------+---+---+ | lidocaine (PF) 2% injection | Given | 08/24/19 | 60 mg | | | | PRN, Starting Tue08/23/17 at | | 18 9:19 | | | | | 0919, Anesthesia Intra-op | | AM PDT | | | | + +-------+ +-------+---+---+ +---+---+ | | | +---+---+ + +-------+ +------+---+---+ | midazolam (VERSED) 1 mg/mL | Given | 08/24/19 | 2 mg | | | | injection Intravenous, PRN, | | 18 9:13 | | | | | Anxiety, Starting Tue08/23/17 at | | AM PDT | | | | | 0913, Anesthesia Intra-op | | | | | | + +-------+ +------+---+---+ +---+---+ | | | +---+---+ + +-------+ +------+---+---+ | ondansetron (ZOFRAN) injection | Given | 08/24/19 | 4 mg | | | | PRN, Nausea, Vomiting, Starting | | 18 9:19 | | | | | 08/23/17 at 0919, Anesthesia | | AM PDT | | | | | Intra-op | | | | | | + +-------+ +------+---+---+ +---+---+ | | | +---+---+ + +-------+ +--------+---+---+ | phenylephrine (GUILLERMINA-SYNEPHRINE) | Given | 08/24/19 | 100 mg | | | | 100 mcg/mL injection | | 18 9:35 | | | | | Intravenous, PRN, Starting Tue | | AM PDT | | | | | 08/23/17 at 0935, Anesthesia | | | | | | | Intra-op | | | | | | + +-------+ +--------+---+---+ +-------+ +--------+---+---+ | Given | 08/24/19 | 100 mg | | | | | 18 9:29 | | | | | | AM PDT | | | | +-------+ +--------+---+---+ +---+---+ | | | +---+---+ + +-------+ +--------+---+---+ | propofol (DIPRIVAN) injection | Given | 08/24/19 | 150 mg | | | | Intravenous, PRN, Starting Tue | | 18 9:19 | | | | | 08/23/17 at 0919, Anesthesia | | AM PDT | | | | | Intra-op | | | | | | + +-------+ +--------+---+---+ +---+---+ | | | +---+---+ + +---------+ + +-------+---+ | propofol (DIPRIVAN) injection | New Bag | 08/24/19 | 50 | 23.5 | | | Intravenous, CONTINUOUS PRN, | | 18 9:37 | mcg/kg/m | mL/hr | | | Starting 08/23/17 at 0937, | | AM PDT | in | | | | Anesthesia Intra-op | | | | | | + +---------+ + +-------+---+ +---+---+ | | | +---+---+ documented in this encounter"
--- OUTSIDE RECORDS SUMMARY | ~2019-11-01 | XMS | Encounter Summary ---
Demographics + + + | Address | [address] | | | [place] [address] | + + + | Home Phone | | + + + | Preferred Language | Unknown | + + + | Marital Status | | + + + | Rastafarian Affiliation | Unknown | + + + | Race | Unknown | + + + | Ethnic Group | Unknown | + + + Author + + + | Author | [facility] | | | and Aashishana | + + + | Organization | [facility] | | | and [...] Team Providers + +------+ + | Care Data Modeling Specialist Name | Role | Phone | + [...] | | [address] | [place] [address] | | | | | [place] [address] | | | | | | [phone] | | | +--------+ + + + [...] [place] | | | | | | [address] | | | | | | | [...]
--- OUTSIDE RECORDS SUMMARY | ~2019-11-01 | XMS | Encounter Summary ---
Demographics + + + | Address | [address] | | | [place] [address] | + + + | Home Phone | | + + + | Preferred Language | Unknown | + + + | Marital Status | | + + + | Judaism Affiliation | Unknown | + + + | Race | Unknown | + + + | Ethnic Group | Unknown | + + + Author + + + | Author | [facility] | | | and Aashishana | + + + | Organization | [facility] | | | and Aashishana | [...] Team Providers + +------+ + | Care Systems Eng Name | Role | Phone | + [...] | [address] | [address] | | | | | Procedures | [place] | [place], | | | | | [place] Nuclear | [place], [place] | [place] | | | | | Stress Test | [address] | [address] | | | | | (Exercise) | Phone: | Phone: | | | | | | [phone] | [phone] | | | | | | Fax: | Fax: | | | | | | [phone] | [phone] | +--------+--------+ + + + + Reason [...] | [address] | [address] | | | | | Procedures | [place] | [place], | | | | | [place] Nuclear | [place] | [place] | | | | | Stress Test | [address] | [address] | | | | | (Exercise) | Phone: | Phone: | | | | | | [phone] | [phone] | | | | | | Fax: | Fax: | | | | | | [phone] | [phone] | +--------+--------+ + + + + Encounter Details +--------+ + + + + | Date | Type | Department | Care Team | Description | +--------+ + + + + | 12/19/ | Hospital | [facility] | Nadine Mahan, | Other chest pain | | 2015 | Encounter | MED CTR NUCLEAR | MD [address] | | | | | MEDICINE [address] | [place] | | | | | [place], | [address] | | | | | [place] [address] | | | | | | [phone] | | | +--------+ + + + [...] | 2019 | Visit | | MD [address] | | | | | | [place] | | | | | | [address] | | | | | | | [...] pressure response is appropriate. 3. The | [facility] | | patient had shortness of breath without chest pain during the | [facility] | | procedure. 4. There is [...] Signed by: John Terry MD PhD [facility] 12/19/2014, 11:59 | | + + + + + + | Narrative | Performed At | + + + | NUCLEAR MEDICINE STRESS TEST REPORT | [facility] | | Patient Name: Parish Dickey Study Date: 12/19/2014 | [facility] | | Primary Care Provider: Cristopher Castro MD : | [facility] | | 1940 Age: 74 y.o. [...] + | [address] | [address] | [place], [place] | [phone] | | [facility] | | [address] | | | - IMAGING | | [...]
--- OUTSIDE RECORDS SUMMARY | ~2019-11-01 | XMS | Encounter Summary ---
Demographics + + + | Address | [address] | | | [place] [address] | + + + | Home Phone | | + + + | Preferred Language | Unknown | + + + | Marital Status | | + + + | Tenriism Affiliation | Unknown | + + + | Race | Unknown | + + + | Ethnic Group | Unknown | + + + Author + + + | Author | [facility] | | | and Aashishana | + + + | Organization | [facility] | | | and Aashishana [...] Team Providers + +------+ + | Care Rent And Housing Investigator Name | Role | Phone | + +------+ + PCP | Unavailable | + +------+ + Encounter Details +--------+ + + + + | Date | Type | Department | Care Team | Description | +--------+ + + + + | 12/07/ | Abstract | [facility] [place] | Thad Fatima MD | | | 2013 | | GASTROENTEROLOGY | [address] | | | | | [address] | [address] [place] | | | | | [address] [place], [place] | [address] | | | | | [address] | | | | | | [phone] | | | +--------+ + + + [...] [place] | | | | | | [id number] | | | | | | | | +--------+---------+ + + + documented as of this encounter Visit Diagnoses Not on filedocumented in this encounter
--- OUTSIDE RECORDS SUMMARY | ~2019-11-01 | XMS | Encounter Summary ---
Demographics + + + | Address | [address] | | | [place] [address] | + + + | Home Phone | | + + + | Preferred Language | Unknown | + + + | Marital Status | | + + + | Anabaptist Affiliation | Unknown | + + + | Race | Unknown | + + + | Ethnic Group | Unknown | + + + Author + + + | Author | [facility] | | | and Aashishana | + + + | Organization | [facility] | | | and Aashishana [...] Team Providers + +------+ + | Care Manager Of Customer Billing Name | Role | Phone | + +------+ + | Cristopher Castro MD | PCP | | + +------+ + Encounter Details +--------+ + + + + | Date | Type | Department | Care Team | Description | +--------+ + + + + | 01/08/ | Hospital | [facility] | Thad Fatima MD | Special screening | | 2013 | Encounter | MED CTR MP INTRA OP | [address] | for malignant | | | | [address] | [address] [place] | neoplasms, colon | | | | [place], [place] | [address] | (Primary Dx); Family | | | | [address] | | history of | | | | [phone] | | malignant neoplasm | | | [...] | | | | | [place] | | | | | | [address] | | | | | | | [...] | [employer] | | 01/08/2014 9:48 AMMRN: [id number] #: [id number] of : | | | 8Admit Type: AmbulatoryAge: 73Room: [facility] 01Gender: MaleNote | | | Status: FinalizedAttending MD: Thad Fatima, [facility]: | | | ColonoscopyIndications: Screening patient at increased | | | risk: Colorectal cancer in multiple | | | 1st-degree relativesProviders: Thad Fatima MD, [facility] | | | MELISSA Javier, Kiley Handley, [...] | | physician, the nurse and the irrigation technician in the endoscopy suite. | | [...] On: | | | 01/08/2014 9:48 AM [facility], [address] | | | [place] [address] | | | - The distal rectum [...] On: 01/08/2014 9:48 AM | | | [facility], [address] [place], [place] | | | [address] | | + + -+ + + [...] [address] | [place] | [phone] | | [facility] | | [address] | | | - LABORATORY | | | | + + + + + | [address] | [address] | [place], [place] | | | [facility] | | [address], [facility] | | | - LABORATORY | [...]
--- OUTSIDE RECORDS SUMMARY | ~2019-11-01 | XMS | Encounter Summary ---
Demographics + + + | Address | [address] | | | [place] [address] | + + + | Home Phone | | + + + | Preferred Language | Unknown | + + + | Marital Status | | + + + | Spiritism Affiliation | Unknown | + + + | Race | Unknown | + + + | Ethnic Group | Unknown | + + + Author + + + | Author | [facility] | | | and Aashishana | + + + | Organization | [facility] | | | and Aashishana [...] Team Providers + +------+ + | Care Cut Off Man Name | Role | Phone | + +------+ + | Cristopher Castro MD | PCP | | + +------+ + Encounter Details +--------+ + + + + | Date | Type | Department | Care Team | Description | +--------+ + + + + | 03/07/ | [facility] | [facility] | Oscar Morales, | Centrilobular | | 2018 | Encounter | MED CTR PULMONARY | [address] | emphysema (HCC) | | | | FUNCTION [address] | [place] | | | | | [place], | [address] | | | | | [place] [address] | | | | | | [phone] | | | +--------+ + + + + Social History + + [...] | + + + +---------+--------+ + | acetaminophen | Take 325 mg by mouth | | 0 | | | | (TYLENOL) 325 mg | every 4 hours as | | | | | | tablet | needed for Pain. | | | | | + + + +---------+--------+ + | albuterol | Inhale 2 puffs into | | 0 | | | | (VENTOLIN HFA) 90 | the lungs every 4 | | | | | | mcg/puff inhaler | hours as needed for | | | | | | | Wheezing. | | | | | + + + +---------+--------+ + | albuterol 2.5 mg/3 | Take 2.5 mg by | | 0 | | | | mL nebulizer | nebulization every 4 | | | | | | solution | hours as needed for | | | | | | | Shortness of | | | | | | | Breath. | | | | | + + [...] | + + + +---------+--------+ + | calcium carbonate | Take 1 tablet by | | 0 | | | | (TUMS) 500 mg | mouth as needed for | | | | | | chewable tablet | Heartburn. | | | | | + + + +---------+--------+ + | carisoprodol | Take 350 mg by mouth | | 0 | | | | (SOMA) 350 mg tablet | Daily. | | | | | + + + +---------+--------+ + | clopidogrel | Take 75 mg by mouth | | 0 | | | | (PLAVIX) 75 mg | Daily. | | | | [...] | + + + +---------+--------+ + | Insulin NPH | Inject 10 Units | | 0 | | | | Isophane & Regular | under the skin 2 | | | | | | (NOVOLIN 70/30 | times daily. | | | | | | RELION SC) | | | | | | + + + +---------+--------+ + | ipratropium | Take 0.5 mg by | | 0 | | | | (ATROVENT) 500 | nebulization every 4 | | | | | | mcg/2.5 mL nebulizer | hours as needed for | | | | | | solution | Shortness of | | | | | | | Breath. | | | | | + + + +---------+--------+ + | losartan (COZAAR) | Take 550 mg by mouth | | 0 | | | | 100 MG tablet | Daily. | | | | | + + [...] | + + + +---------+--------+ + | Misc Natural | Take 1 tablet by | | 0 | | | | Products (PROSTATE | mouth Daily. | | | | | | HEALTH PO) | | | | | | + + + +---------+--------+ + | | Inhale 1 puff into | | 0 | | | | fluticasone-salmeter | the lungs Twice | | | | 8 | | ol (ADVAIR) 500-50 | Daily. | | | | | | mcg/puff diskus | | | | | | | inhaler | | | | | | + + + +---------+--------+ + documented as of this encounter Plan of Treatment +--------+---------+ + + + | Date | Type | Specialty | Care Team | Description | +--------+---------+ + + + | 11/18/ | Office | Pulmonology | Oscar Morales, | | | 2019 | Visit | | MD [address] | | | | | | [place] | | | | | | [id number] | | | | | | | | +--------+---------+ + + + documented as of this encounter Procedures + +--------+ + + + | Procedure Name | Priori | Date/Time | Associated Diagnosis | Comments | | | ty | | | | + +--------+ + + + | PFT PULMONARY | [facility] | 03/07/2018 | Centrilobular | Results for this | | FUNCTION TESTING | | 3:05 PM | emphysema (HCC) | procedure are in the | | ORDERS | | PDT | | results section. | + +--------+ + + + | PFT PULMONARY | [place] | 03/07/2018 | Centrilobular | Results for this | | FUNCTION TESTING | | 3:05 PM | emphysema (HCC) | procedure are in the | | ORDERS | | PDT | | results section. | + +--------+ + + + | PFT PULMONARY | [place] | 03/07/2018 | Centrilobular | Results for this | | FUNCTION TESTING | | 3:05 PM | emphysema (HCC) | procedure are in the | | ORDERS | | PDT | | results section. | + +--------+ + + + | PFT PULMONARY | [place] | 03/07/2018 | Centrilobular | Results for this | | FUNCTION TESTING | | 3:05 PM | emphysema (HCC) | procedure are in the | | ORDERS | | PDT | | results section. [...] [facility] Morales [facility] | | |IMPRESSION: Spirometry is consistent [...] Morales MD 03/07/2018 15:05 | | |[facility] | | + + + documented in this encounter Visit Diagnoses + + | Diagnosis | + + | Centrilobular emphysema (HCC) | + + documented in this encounter Administered Medications + +--------+ +--------+------+------+ | Medication Order | MAR | Action | Dose | Rate | Site | | | Action | Date | | | | + +--------+ +--------+------+------+ | albuterol 2.5 mg/3 mL nebulizer | Given | 03/07/20 | 2.5 mg | | | | solution 2.5 mg 2.5 mg, | | 18 12:39 | | | | | Nebulization, RT Once, Tue | | PM PDT | | | | | 03/07/18 at 1300, For 1 dose, RT | | | | | | | will administer., | | | | | | + +--------+ +--------+------+------+ +---+---+ | | | +---+---+ documented in this encounter"
--- OUTSIDE RECORDS SUMMARY | ~2019-11-01 | XMS | Encounter Summary ---
Demographics + + + | Address | [address] | | | [place] [address] | + + + | Home Phone | | + + + | Preferred Language | Unknown | + + + | Marital Status | | + + + | Samaritan Affiliation | Unknown | + + + | Race | Unknown | + + + | Ethnic Group | Unknown | + + + Author + + + | Author | [facility] | | | and Aashishana | + + + | Organization | [facility] | [...] Team Providers + +------+ + | Care Maintenance Technician 3Rd Shift Name | Role | Phone | + +------+ + PCP | Unavailable | + +------+ + Encounter Details +--------+ + + + + | Date | Type | Department | Care Team | Description | +--------+ + + + + | 12/07/ | Abstract | [facility] | Thad Fatima MD | | | 2013 | | GASTROENTEROLOGY | [address] | | | | | [address] | [address] [place] | | | | | [address] [place], [place] | [address] | | | | | [address] | | | | | | [phone] | | | +--------+ + + + [...] [place] | | | | | | [address] | | | | | | | | +--------+---------+ + + + documented as of this encounter Visit Diagnoses Not on filedocumented in this encounter"
--- OUTSIDE RECORDS SUMMARY | ~2019-11-01 | XMS | Encounter Summary ---
Demographics + + + | Address | [address] | | | [place] [address] | + + + | Home Phone | | + + + | Preferred Language | Unknown | + + + | Marital Status | | + + + | Pentecostal Affiliation | Unknown | + + + | Race | Unknown | + + + | Ethnic Group | Unknown | + + + Author + + + | Author | [facility] | | | and Aashishana | + + + | Organization | [facility] | | | and [...] Team Providers + +------+ + | Care Home School Teacher Name | Role | Phone | + [...] | | | | | [address] | [address] [place] | | | | | [place] | [address] | | | | | [address] | | | | | | [phone] | | | +--------+ + + + [...] + | MD | | | | [place] Node Biopsy | | | | | [...] +----+---+ + + | | 0 | [place] | | | | 9 | 43-degrees [...] +----+---+ + + | | 1 | [place] off | | | | 0 | [...] 08/23/17 1602 by | | eral | aopn-nci-[id number] catheter system; | Alexis Ferreira RN | [...] [place] | | | | | | [address] | | | | | | | [...]
--- OUTSIDE RECORDS SUMMARY | ~2019-11-01 | XMS | Encounter Summary ---
Demographics + + + | Address | [address] | | | [place] [address] | + + + | Home Phone | | + + + | Preferred Language | Unknown | + + + | Marital Status | | + + + | Mormon Affiliation | Unknown | + + + | Race | Unknown | + + + | Ethnic Group | Unknown | + + + Author + + + | Author | [facility] | | | and Aashishana | + + + | Organization | [facility] | | | and Aashishana | + [...] Team Providers + +------+ + | Care Software Firmware Engineer Name | Role | Phone | + +------+ + PCP | Unavailable | + +------+ + Encounter Details +--------+ + + + + | Date | Type | Department | Care Team | Description | +--------+ + + + + | 12/07/ | Abstract | [facility] [place] | Thad Fatima MD | | | 2013 | | GASTROENTEROLOGY | [address] | | | | | [address] | [address] [place] | | | | | [address] [place], [place] | [address] | | | | | [address] | | | | | | [phone] | | | +--------+ + + + [...] [place] | | | | | | [address] | | | | | | | | +--------+---------+ + + + documented as of this encounter Visit Diagnoses Not on filedocumented in this encounter"
--- OUTSIDE RECORDS SUMMARY | ~2019-11-01 | XMS | Encounter Summary ---
Demographics + + + | Address | [address] | | | [place] [address] | + + + | Home Phone | | + + + | Preferred Language | Unknown | + + + | Marital Status | | + + + | Mosque Affiliation | Unknown | + + + | Race | Unknown | + + + | Ethnic Group | Unknown | + + + Author + + + | Author | [facility] | | | and Aashishana | + + + | Organization | [facility] | | | and Aashishana | [...] Team Providers + +------+ + | Care Cinder Block Maker Name | Role | Phone | + +------+ + | Cristopher Castro MD | PCP | | + +------+ + Encounter Details +--------+ + + + + | Date | Type | Department | Care Team | Description | +--------+ + + + + | 03/07/ | [facility] | [facility] | Oscar Morales, | Centrilobular | | 2018 | Encounter | MED CTR PULMONARY | [address] | emphysema (HCC) | | | | FUNCTION [address] | [place] | | | | | [place], | [address] | | | | | [place] [address] | | | | | | [phone] | | | +--------+ + + + [...] [place] | | | | | | [address] | | | | | | | [...] Oscar Morales MD [facility]07[facility]2018 | | [facility] | | |IMPRESSION: Spirometry is consistent [...] Morales MD 03/07/2018 15:05 | | |[facility] | | + + + documented in [...]
--- OUTSIDE RECORDS SUMMARY | ~2019-11-01 | XMS | Encounter Summary ---
Demographics + + + | Address | [address] | | | [place] [address] | + + + | Home Phone | | + + + | Preferred Language | Unknown | + + + | Marital Status | | + + + | Pentecostalism Affiliation | Unknown | + + + | Race | Unknown | + + + | Ethnic Group | Unknown | + + + Author + + + | Author | [facility] | | | and Aashishana | + + + | Organization | [facility] | | | and [...] Team Providers + +------+ + | Care Candy Feeder Name | Role | Phone | + +------+ + | Cristopher Castro MD | PCP | | + +------+ + Reason for Visit + + + | Reason | Comments | + + + | Chest Pain | | + + + Encounter Details +--------+ + + + + | Date | Type | Department | Care Team | Description | +--------+ + + + + | 08/07/ | Emergency | [facility] | Jamari Bloom | Trigger point | | 2016 | | MED CTR EMERGENCY | MD Zack [address] | (Primary Dx) | | | | CENTER [address] | [address] [place] | | | | | [place], [place] | [place] [address] | | | | | [address] | [phone] | | | | | [phone] | | | +--------+ + + + [...] + + + | Blood Pressure | 136/99 | 08/07/2015 12:56 PM | | | | | PST | | + + + + + | Pulse | 84 | 08/07/2015 12:56 PM | | | | | PST | | + + + + + | Temperature | 35.4 C (95.8 F) | 08/07/2015 10:35 AM | | | | | PST | | + + + + + | Respiratory Rate | 21 | 08/07/2015 12:56 PM | | | | | PST | | + + + + + | Oxygen Saturation | 95% | 08/07/2015 12:56 PM | | | | | PST | | + + + + + | Inhaled Oxygen | - | - | | | Concentration | | | | + + + + + | Weight | 78.5 kg (173 lb) | 08/07/2015 10:35 AM | | | | | PST | | + + + + + | Height | 180.3 cm (5' 11") | 08/07/2015 10:35 AM | | | | | PST | | + + + + + | Body Mass Index | 24.13 | 08/07/2015 10:35 AM | | | | | PST | | + + + + + documented in this encounter Discharge Instructions Instructions Jamari Bloom MD - 08/07/2015This may be more painful over the next 24 hours but should start getting better after that and be well in 5-7 days. documented in this encounter Medications at Time [...] [place] | | | | | | [place] | | | | | | [address] | | | | | | | | +--------+---------+ + + + documented as of this encounter Procedures + +--------+ + + + | Procedure Name | Priori | Date/Time | Associated Diagnosis | Comments | | | ty | | | | + +--------+ + + + | XR CHEST AP PORTABLE | STAT | 08/07/2015 | | Results for this | | | | 11:55 AM | | procedure are in the | | | | PST | | results section. | + +--------+ + + + | EXTRA LAVENDER TOP | Routin | 08/07/2015 | | Results for this | | TUBE | e | 11:47 AM | | procedure are in the | | | | PST | | results section. | + +--------+ + + + | EXTRA GREEN TOP TUBE | Routin | 08/07/2015 | | Results for this | | | e | 11:47 AM | | procedure are in the | | | | PST | | results section. | + +--------+ + + + | EXTRA GOLD TOP TUBE | Routin | 08/07/2015 | | Results for this | | | e | 11:47 AM | | procedure are in the | | | | PST | | results section. | + +--------+ + + + | EXTRA BLUE TOP TUBE | Routin | 08/07/2015 | | Results for this | | | e | 11:47 AM | | procedure are in the | | | | PST | | results section. | + +--------+ + + + | TROPONIN I | STAT | 08/07/2015 | | Results for this | | | | 11:47 AM | | procedure are in the | | | | PST | | results section. | + +--------+ + + + | ECG 12 LEAD | STAT | 08/07/2015 | | Results for this | | | | 10:34 AM | | procedure are in the | | | | PST | | results section. | + +--------+ + + + documented in this encounter Results XR Chest AP Portable (08/07/2015 11:55 AM PST) + + | Specimen | + + | | + + + + + | Narrative | Performed At | + + + | XR CHEST AP PORTABLE 08/07/2015 11:55 AM HISTORY: CHEST PAIN. | [facility] | | COMPARISON: None. Findings: Heart size is within normal limits. | | | There is atherosclerosis of the aorta. Mediastinum is unremarkable. | | | Central pulmonary vasculature is normal. There is mild hyperinflation | | | of the lungs. A small nodular density is in the left lower lung | | | lateral aspect that could represent overlapping structures. There is | | | mild spondylosis. Clips are in the midline of the lower chest. | | | IMPRESSION - No acute findings. Small nodular density in left | | | lower lung lateral aspect that could represent overlapping | | | structures. A follow-up chest x-ray with PA and lateral technique can | | | be obtained in 4-6 months if clinically indicated. Dictated and | | | Signed by: Timmy Saul MD Electronically signed: 08/07/2015 12:59 | | | PM | | + + + + + | Procedure Note | + + | Edward, Rad Results In - 08/07/2015 1:02 PM PST XR CHEST AP PORTABLE 08/07/2015 11:55 AM | | | | HISTORY: CHEST PAIN. | | | | COMPARISON: None. | | | | Findings: | | Heart size is within normal limits. There is atherosclerosis of the aorta. | | Mediastinum is unremarkable. Central pulmonary vasculature is normal. There is | | mild hyperinflation of the lungs. A small nodular density is in the left lower | | lung lateral aspect that could represent overlapping structures. There is mild | | spondylosis. Clips are in the midline of the lower chest. | | | | IMPRESSION - | | No acute findings. | | | | Small nodular density in left lower lung lateral aspect that could represent | | overlapping structures. A follow-up chest x-ray with PA and lateral technique | | can be obtained in 4-6 months if clinically indicated. | | | | Dictated and Signed by: Timmy Saul MD | | Electronically signed: 08/07/2015 12:59 PM | + + + +---------+ + + | Performing | Address | City/State/Zipcode | Phone Number | | Organization | | | | + +---------+ + + | [facility] | | | | + +---------+ + + Extra Gold Top Tube (08/07/2015 11:47 AM PST) + +-------+ + + + | Component | Value | Ref Range | Performed | Pathologist | | | | | At | Signature | + +-------+ + + + | Extra Gold | Done | | [facility] | | | Top Tube | | | [facility] | | | | | | MEDICAL [...] ST. | [address] | [place] | [phone] | | [facility] | | [address] | | | - LABORATORY | | | | + + + + + Extra Lavender Top Tube (08/07/2015 11:47 AM PST) + +-------+ + + + | Component | Value | Ref Range | Performed | Pathologist | | | | | At | Signature | + +-------+ + + + | Extra | Done | | [facility] | | | Lavender | | | [facility] | | | Top Tube | | | MEDICAL | | | [...] ST. | [address] | [place] | [phone] | | [facility] | | [address] | | | - LABORATORY | | | | + + + + + Extra Green Top Tube (08/07/2015 11:47 AM PST) + +-------+ + + + | Component | Value | Ref Range | Performed | Pathologist | | | | | At | Signature | + +-------+ + + + | Extra Green | Done | | [facility] | | | Top Tube | | | [facility] | | | | | | MEDICAL [...] ST. | [address] | [place] | [phone] | | [facility] | | [address] | | | - LABORATORY | | | | + + + + + Extra Blue Top Tube (08/07/2015 11:47 AM PST) + +-------+ + + + | Component | Value | Ref Range | Performed | Pathologist | | | | | At | Signature | + +-------+ + + + | Extra Blue | Done | | [facility] | | | Top Tube | | | [facility] | | | | | | MEDICAL [...] ST. | [address] | [place] | [phone] | | [facility] | | [address] | | | - LABORATORY | | | | + + + + + Troponin I (08/07/2015 11:47 AM PST) + + + + + + | Component | Value | Ref Range | Performed | Pathologist | | | | | At | Signature | + + + + + + | Troponin I | <0.01Comment: Reference | <0.06 ng/mL | [facility] | | | | Ranges:0.00-0.06 = | | [facility] | | | | NORMAL>0.06 = | | MEDICAL | | | | SUSPICIOUS FOR | | CENTER - | | | | MYOCARDIAL DAMAGE NOTE: | | LABORATORY | | | | Values greater than 0.50 | | | | | | ng/mL have been shown | | | | | | to be strongly | | | | | | associated with acute | | | | | | myocardial infarction. | | | | | | The [employer] | | | | | | Cardiology (ACC) | | | | | | recommends a decision | | | | | | limit of 0.06 ng/mL for | | | | | | this assay. Results | | | | | | greater than 0.06 can | | | | | | reflect a pre-infarct | | | | | | acute coronary syndrome, | | | | | | but can also reflect | | | | | | myocardial necrosis or | | | | | | injury that is not due | | | | | | to coronary artery | | | | | | disease. Some of these | | | | | | causes are sepsis, | | | | | | hypocolemia, atrial | | | | | | fibrillation, heart | | | | | | failure, pulmonary | | | | | | embolism, myocarditis, | | | | | | myocardial contusion, | | | | | | and renal failure. The | | | | | | diagnosis of myocardial | | | | | | infarction should be | | | | | | based on a combination | | | | | | of the patient's | | | | | | clinical presentation | | | | | | and the clinical | | | | | | laboratory test results | | | | | | (especially serial | | | | | | troponin levels). | | | | + + + + + + + + | Specimen | + + | Blood | + + + + + + + | Performing | Address | City/State/Zipcode | Phone Number | | Organization | | | | + + + + + | [facility] | [address] | [place], [place] | [phone] | | [facility] | | [address] | | | - LABORATORY | | | | + + + + + ECG 12 lead (08/07/2015 10:34 AM PST) + + + + + + | Component | Value | Ref Range | Performed | Pathologist | | | | | At | Signature | + + + + + + | VENTRICULAR | 86 | BPM | [facility] | | | RATE EKG | | | | | + + + + + + | ATRIAL RATE | 86 | BPM | [facility] | | + + + + + + | P-R | 182 | ms | [facility] | | | INTERVAL | | | | | + + + + + + | QRS | 78 | ms | [facility] | | | DURATION | | | | | + + + + + + | Q-T | 350 | ms | [facility] | | | INTERVAL | | | | | + + + + + + | Q-T | 418 | ms | [facility] | | | INTERVAL | | | | | | (CORRECTED) | | | | | + + + + + + | P WAVE AXIS | 78 | degrees | [facility] | | + + + + + + | QRS AXIS | 72 | degrees | [facility] | | + + + + + + | T AXIS | 77 | degrees | [facility] | | + + + + + + | INTERPRETAT | Normal sinus | | [facility] | | | ION TEXT | rhythmNormal ECGNo | | | | | | previous ECGs | | | | | | availableConfirmed by | | | | | | JOSY IBANEZ MD ([id number]) | | | | | | on 08/08/2015 7:24:41 AM | | | | + + + + + + + + | Specimen | + + | | + + + + + | Narrative | Performed At | + + + | | | + + + + +---------+ + + | Performing | Address | City/State/Zipcode | Phone Number | | Organization | | | | + +---------+ + + | [facility] | | | | + +---------+ + + documented in this encounter Visit Diagnoses + + | Diagnosis | + + | Trigger point - Primary | + + documented in this encounter Administered Medications + +--------+ +-------+------+ + | Medication Order | MAR | Action | Dose | Rate | Site | | | Action | Date | | | | + +--------+ +-------+------+ + | triamcinolone acetonide | Given | 08/07/19 | 40 mg | | Other | | (KENALOG-40) 40 mg/mL injection | | 16 1:10 | | | (Comment | | 40 mg 40 mg, Intramuscular, | | PM PST | | | ) | | ONCE, [facility] 08/07/15 at 1305, For 1 | | | | | | | dose, Shake well. Not for IV | | | | | | | use., | | | | | | + +--------+ +-------+------+ + +---+---+ | | | +---+---+ documented in this encounter
--- OUTSIDE RECORDS SUMMARY | ~2019-11-01 | XMS | Encounter Summary ---
Demographics + + + | Address | [address] | | | [place] [address] | + + + | Home Phone | | + + + | Preferred Language | Unknown | + + + | Marital Status | | + + + | Quaker Affiliation | Unknown | + + + | Race | Unknown | + + + | Ethnic Group | Unknown | + + + Author + + + | Author | [facility] | | | and Aashishana | + + + | Organization | [facility] | | | and [...] Team Providers + +------+ + | Care Advertising Agent Name | Role | Phone | + +------+ + | Cristopher Castro MD | PCP | | + +------+ + Encounter Details +--------+ + + + + | Date | Type | Department | Care Team | Description | +--------+ + + + + | 02/28/ | [facility] | [facility] | Oscar Morales, | Centrilobular | | 2018 | Encounter | MED CTR XRAY [address] | emphysema (HCC) | | | | [place] | [place] | | | | | [place] [address] | [address] | | | | | [phone] | | | +--------+ + + + [...] | + + + +---------+--------+ + | fluticasone | Inhale 1 puff into | | 0 | | | | (FLOVENT HFA) 220 | the lungs 2 times | | | | 8 | | mcg/puff inhaler | daily. | | | | [...] [place] | | | | | | [id number] | | | | | | | | +--------+---------+ + + + documented as of this encounter Procedures + +--------+ + + + | Procedure Name | Priori | Date/Time | Associated Diagnosis | Comments | | | ty | | | | + +--------+ + + + | XR CHEST PA AND | Routin | 02/28/2018 | Centrilobular | Results for this | | LATERAL | e | 2:10 PM | emphysema (HCC) | procedure are in the | | | | PDT | | results section. | + +--------+ + + + documented in this encounter Results XR Chest PA and Lateral (02/28/2018 2:10 [...] | | overlapping structures.Dictated and Signed by: Timmy Saul MD Electronically signed: | | 02/28/2018 [...] (HCC) | + + documented in this encounter"
--- OUTSIDE RECORDS SUMMARY | ~2019-11-01 | XMS | Encounter Summary ---
Demographics + + + | Address | [address] | | | [place] [address] | + + + | Home Phone | | + + + | Preferred Language | Unknown | + + + | Marital Status | | + + + | Episcopalian Affiliation | Unknown | + + + | Race | Unknown | + + + | Ethnic Group | Unknown | + + + Author + + + | Author | [facility] | | | and Aashishana | + + + | Organization | [facility] | [...] Team Providers + +------+ + | Care Sweet Goods Machine Operator Name | Role | Phone | + +------+ + | Cristopher Castro MD | PCP | | + +------+ + Encounter Details +--------+ + + + + | Date | Type | Department | Care Team | Description | +--------+ + + + + | 12/19/ | [facility] | [facility] | Nadine Mahan, | | | 2014 | Encounter | [facility] | [address] | | | | | MEDICINE [address] | [place] | | | | | [place], | [address] | | | | | [place] [address] | | | | | | [phone] | | | +--------+ + + + [...] [place] | | | | | | [address] | | | | | | | [...]
--- OUTSIDE RECORDS SUMMARY | ~2019-11-01 | XMS | Encounter Summary ---
Demographics + + + | Address | [address] | | | [place] [address] | + + + | Home Phone | | + + + | Preferred Language | Unknown | + + + | Marital Status | | + + + | Alevism Affiliation | Unknown | + + + | Race | Unknown | + + + | Ethnic Group | Unknown | + + + Author + + + | Author | [facility] | | | and Aashishana | + + + | Organization | [facility] | | | and [...] Team Providers + +------+ + | Care Science Interpreter Name | Role | Phone | + +------+ + | Cristopher Castro MD | PCP | | + +------+ + Encounter Details +--------+---------+ + + + | Date | Type | Department | Care Team | Description | +--------+---------+ + + + | 01/08/ | Surgery | [facility] | Thad Fatima MD | COLONOSCOPY | | 2013 | | [facility] | [address], [place] | | | | | [address] | [address] [place] | | | | | [place] | [address] | | | | | [address] | | | | | | [phone] | | | +--------+---------+ + + + [...] | | | | | [place] | | | | | | [address] | | | | | | | [...] | [employer] | | 01/08/2014 9:48 AMMRN: [id number] #: [id number] of : | | | 8Admit Type: AmbulatoryAge: 73[facility]: [facility] 01Gender: MaleNote | | | Status: FinalizedAttending MD: Thad Fatima, [facility]cedure: | | | ColonoscopyIndications: Screening patient at increased | | | risk: Colorectal cancer in multiple | | | 1st-degree relativesProviders: Thad Fatima MD, [facility] | | | MELISSA Javier, [...] | | physician, the nurse and the technician automated equipment in the endoscopy suite. | | | [...] On: | | | 01/08/2014 9:48 AM [facility], [address] | | | [place] [address] | | | - The distal rectum [...] On: 01/08/2014 9:48 AM | | | [facility], [address] [place], [place] | | | [address] | | + + -+ + + [...] [address] | [place] | [phone] | | [facility] | | [address] | | | - LABORATORY | | | | + + + + + | [address] | [address] | [place], [place] | | | [facility] | | [address], [facility] | | | - LABORATORY | [...]
--- OUTSIDE RECORDS SUMMARY | ~2019-11-01 | XMS | Encounter Summary ---
Demographics + + + | Address | [address] | | | [place] [address] | + + + | Home Phone | | + + + | Preferred Language | Unknown | + + + | Marital Status | | + + + | Caodaism Affiliation | Unknown | + + + | Race | Unknown | + + + | Ethnic Group | Unknown | + + + Author + + + | Author | [facility] | | | and Aashishana | + + + | Organization | [facility] | | | and [...] Team Providers + +------+ + | Care Lens Generating Machine Tender Name | Role | Phone | + +------+ + | Cristopher Castro MD | PCP | | + +------+ + Encounter Details +--------+ + + + + | Date | Type | Department | Care Team | Description | +--------+ + + + + | 08/23/ | [facility] | [facility] | Jos Lara, | | | 2018 | Encounter | MED CTR OR [facility] OP | [address] | | | | | [address] | [place] | | | | | [place] | [address] | | | | | [address] | [phone] | | | | | [phone] | | | +--------+ + + + [...] + + + | Blood Pressure | 130/58 | 08/23/2017 3:30 PM | | | | | PDT | | + + + + + | Pulse | 85 | 08/23/2017 3:30 PM | | | | | PDT | | + + + + + | Temperature | 36.4 C (97.5 F) | 08/23/2017 10:38 AM | | | | | PDT | | + + + + + | Respiratory Rate | 16 | 08/23/2017 3:30 PM | | | | | PDT | | + + + + + | Oxygen Saturation | 95% | 08/23/2017 3:30 PM | | | | | PDT | | + + + + + | Inhaled Oxygen | - | - | | | Concentration | | | | + + + + + | Weight | 78.2 kg (172 lb 6.4 | 08/23/2017 8:10 AM | | | | oz) | PDT | | + + + + + | Height | 180.3 cm (5' 11") | 08/23/2017 8:10 AM | | | | | PDT | | + + + + + | Body Mass Index | 24.04 | 08/23/2017 8:10 AM | | | | | PDT | | + + + + + documented in this encounter Discharge Instructions Instructions Vicky Luna RN - 08/23/2017Formatting of this note might be different fro m the original. Diet: Resume your diabetic diet. Activity: Take daily walks. Ok to shower. Remove the plastic bandages in 5 days. If the gauze gets wet or bloody, replace them as needed. Resume your Plavix on . Melanoma Removal Surgery Melanoma is a type of skin cancer. It often starts as a mole or dark spot on the skin. It s preads faster than many other types of cancer. And it can be fatal if not treated.Melanoma is often diagnosed after removal of the entire mole. Once a diagnosis is made, the area delaney und the melanoma is also removed. If the cancer is caught early, it has a high chance of margi ng cured. Removing lymph nodes Lymph nodes are small masses of tissue that are part of the body s immune system. The sen tinel nodeis the first lymph node a tumor drains into. So, it s the first place that can cer is likely to spread. Depending on the thickness of your tumor, either the sentinel node or all the nearby lymph nodes may need to be removed. A sentinel node biopsy is a test often done during melanoma removal surgery. This helps the doctor know which lymph nodes to remov e. If you will have a sentinel node biopsy, your doctor can tell you more about what to expe ct. Preparing for surgery Prepare for the surgery as you ve been told. In addition: Tell your doctor about all medicines you take. This includes yblt-cwq-feahwyr medicines, herbs and other supplements. It also includes any blood thinners, such as warfarin, clopid ogrel, or daily aspirin. You may need to stop taking some or all of them before surgery. Follow any directions you are given for taking medicines and for not eating or drinking before surgery. If you re having a sentinel node biopsy, you may have an injection of harmless dye the day before surgery. The day of surgery The surgery takes about 2 to 3 hours. You go home the same day. Before the surgery begins: An IV (intravenous) line is put into a vein in your arm or hand. This line supplies flui ds and medicines. You will be given medicine to keep you pain free during surgery. This may be general ane sthesia, which puts you into a deep sleep. A tube may be inserted into your throat to help y ou breathe. Or you may have sedation, which makes you relaxed and sleepy. If you have sedati on, local anesthesia will be injected to numb the area being worked on. The anesthesiologist will discuss your options with you. During the surgery: If you re having a sentinel node biopsy, harmless blue dye is injected to help the doc tor locate lymph nodes where cancer may have spread. An incision is made at the tumor site. The tumor is removed along with some of the mehnaz l tissue around it. This helps ensure that any cancer cells that may have spread to nearby s kin are removed. One or more lymph nodes near the tumor may be removed. These are checked for cancer cell s (a sign that cancer has spread). The incision may be closed with stitches or paige. In some cases, a skin graft or flap may be needed to help close the site. This can come from your own body, a donor, or manmade sources. The doctor will discuss the different types of grafts with you before the surgery. After the surgery You ll be taken to a room to wake up from the anesthesia. You may feel sleepy and nauseat ed. If a breathing tube was used, your throat may be sore at first. You ll be given medici ne to manage pain. When it s time for you to be released from the hospital, have an adult family member or friend ready to drive you. Recovering at home Once at home, follow the instructions you ve been given. Your doctor will tell you when y ou can return to your normal routine. Be sure to: Take all medicine as directed. Care for your incision as instructed. Don't doheavy lifting or strenuous activities. Don't drive until your doctor says it s OK. Don t drive if you re taking medicine that makes you sleepy or drowsy. Follow your doctor s guidelines for showering. Avoid swimming, bathing, using a hot tu b, and other activities that cause the incision to be covered with water until your doctor s ays it s OK. When to call your healthcare provider Call your healthcare provider rightawayif you have any of the following: Chest pain or trouble breathing (call 911) Fever of 100.4F (38C) or higher, or as directed by your healthcare provider Chills Symptoms of infection at an incision site, such as increased redness or swelling, warmth , worsening pain, or foul-smelling drainage Pain that cannot be controlled with medicine Follow-up You will have follow-up visits so your doctor can see how well you re healing. If needed, stitches or paige will be removed at one of these visits. You and your doctor can also di scuss any further treatments you may need. Risks and complications Risks and possible complications include: Bleeding Infection Scarring at the surgery site Problems with the skin graft (if one was used) Failure to remove all of the cancer, requiring further treatments Risks of anesthesia Date Last Reviewed: 12/26/201419993959-7942 [employer]. [address] [place] [address]. All righ ts reserved. This information is not intended as a substitute for professional medical care. Always follow your healthcare professional's instructions. documented in this encounter Medications at Time [...] | + + + +---------+--------+ + | potassium citrate | Take 10 mEq by mouth | | 0 | | | | (UROCIT-K) 10 mEq SR | 3 times daily (with | | | | 8 | | tablet | meals). | | | | | + + + +---------+--------+ + documented as of this encounter Plan of Treatment +--------+---------+ + + + | Date | Type | Specialty | Care Team | Description | +--------+---------+ + + + | 11/18/ | Office | Pulmonology | Oscar Morales, | | | 2019 | Visit | | [address] | | | | | | [place] | | | | | | [id number] | | | | | | | | +--------+---------+ + + + documented as of this encounter Procedures + +--------+ + + + | Procedure Name | Priori | Date/Time | Associated Diagnosis | Comments | | | ty | | | | + +--------+ + + + | POC GLUCOSE | Routin | 08/23/2017 | | Results for this | | | e | 12:51 PM | | procedure are in the | | | | PDT | | results section. | + +--------+ + + + | EXCISION LIPOMA / | | 08/23/2017 | Malignant melanoma | | | CYST / MASS | | 9:14 AM | of left upper | | | | | PDT | extremity (HCC) | | | | | | Basal cell carcinoma | | | | | | of left upper | | | | | | extremity | | + +--------+ + + + | POC GLUCOSE | Routin | 08/23/2017 | | Results for this | | | e | 8:31 AM | | procedure are in the | | | | PDT | | results section. | + +--------+ + + + | SURGICAL PATHOLOGY | Routin | 08/23/2017 | | Results for this | | EXAM | e | 12:00 AM | | procedure are [...] | + +--------+ + + + | LABS - EXTERNAL SCAN | | 08/10/2017 | | Results for this | | | | 12:00 AM | | procedure are in the | | | | PST | | results section. | + +--------+ + + + | ECG - EXTERNAL SCAN | | 08/10/2017 | | Results for this | | | | 12:00 AM | | procedure are in the | | | | PST | | results section. | + +--------+ + + + | PATHOLOGY - EXTERNAL | | 07/25/2017 | | Results for this | | SCAN | | 12:00 AM | | procedure are in the | | | | PST | | results section. | + +--------+ + + + documented in this encounter Results POC Glucose (08/23/2017 12:51 PM PDT) + +---------+ + + + | Component | Value | Ref Range | Performed | Pathologist | | | | | At | Signature | + +---------+ + + + | Glucose, | 237 (H) | 70 - 109 mg/dL | [facility] | | [facility] | [facility] | | | | | [facility] - | | | | | | LABORATORY | | + +---------+ + + + + + | Specimen | + + | Blood | + + + + + + + | Performing | Address | City/State/Zipcode | Phone Number | | Organization | | | | + + + + + | [facility] | [address] | [place] | [phone] | | [facility] | | [address] | | | - LABORATORY | | | | + + + + + POC Glucose (08/23/2017 8:31 AM PDT) + +---------+ + + + | Component | Value | Ref Range | Performed | Pathologist | | | | | At | Signature | + +---------+ + + + | Glucose, | 180 (H) | 70 - 109 mg/dL | [facility] | [facility] | | | [facility] | | | | | | [facility] - | | | | | | LABORATORY | | + +---------+ + + + + + | Specimen | + + | Blood | + + + + + + + | Performing | Address | City/State/Zipcode | Phone Number | | Organization | | | | + + + + + | [facility] | [address] | [place] | [phone] | | [facility] | | [address] | | | - LABORATORY | | | | + + + + + Surgical Pathology Exam (08/23/2017 12:00 AM PDT) + + | Specimen | + + | | + + + + + | Narrative | Performed At | + + + | SPECIMEN(S): A LEFT ARM SKIN CANCERS X2 SPECIMEN(S): B SENTINEL | [facility] | | NODE LEFT AXILLA #1 SPECIMEN(S): C SENTINEL LYMPH NODE #2 LEFT AXILLA | [facility] | | SPECIMEN SOURCE: A. LEFT ARM SKIN CANCERS X2 B. SENTINEL NODE | | | LEFT AXILLA #1 C. 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 Skin, left | | | arm, excision: - Focal residual melanoma in situ; absent at | | | surgical margins. (see comment) - Biopsy site changes present. - | | | Focal incidental epidermolytic hyperkeratosis. B. Lymph node, | | | left axilla sentinel #2, biopsy: - One lymph node, negative for | | | metastatic melanoma by routine histology and immunohistochemical | | | stains (0/1). (See Comment) C. Lymph node, left axilla sentinel | | | #2, biopsy: - One lymph node, negative for metastatic melanoma by | | | routine histology and immunohistochemical stains (0/1). (See Comment) | | | COMMENT: Histologic sections from specimen A show an excision of | | | sun-damaged skin with biopsy site changes and focal residual melanoma | | | in situ. The surrounding skin shows mild squamous atypia with | | | junctional melanocytic hyperplasia. Immunohistochemical stains for | | | Melan A performed on blocks (A2) and (A3) highlight lesional | | | melanocytes; there is no evidence of definitive dermal invasion in the | | | current specimen. These findings support the above diagnosis of | | | residual melanoma in situ. Melanoma in situ is present ten millimeters | | | from the nearest peripheral excision margin. Per report, prior | | | biopsy at this site revealed an invasive melanoma, but neither the | | | biopsy material or this report is available for review at the time of | | | the current case. The final pathologic T stage would be unchanged from | | | that of the prior biopsy. The pathologic N stage is pN0 based on | | | the negative lymph nodes present in the current case. Correlation | | | with prior pathology results is necessary. Per sentinel lymph | | | node protocol, immunohistochemical stains for Melan-A and SOX-10 are | | | performed on specimens B and C. These stains support the above | | | diagnoses. CLR:[facility]:C2NR GROSS DESCRIPTION: A. The specimen is | | | received in formalin in a container labeled "Parish Dickey, left | | | arm skin cancers x 2, single superior, double posterior". Received is | | | a single skin ellipse which measures 5.5 x 2.4 cm and is excised to a | | | maximum depth of 1.3 cm. A single suture is present at one skin tip | | | and a double suture present along one broad skin edge. The single | | | suture will be utilize to orient as 12 o'clock which makes the double | | | suture 3 o'clock. The specimen is then inked as follows: 12-3-6 | | | o'clock is black, 6-9-12 o'clock is blue. The specimen is serially | | | sectioned and entirely submitted [id number] o'clock in cassettes | | | (A1-A6). B. The specimen is received in formalin in a container | | | labeled "Parish Dickey, sentinel node #1, left axilla". Received is | | | a single unoriented deq-hxtbku-vtfd fibrofatty tissue fragment | | | measuring 2.3 x 2 x 1.3 cm. Dissection reveals change consistent | | | with one fatty lymph node which is bisected and entirely submitted in | | | cassette (B1). C. The specimen is received in formalin in a | | | container labeled "Parish Dickey, sentinel node #2, left axilla". | | | Received is a single gnu-nodxhe-yszr fibrofatty tissue fragment | | | measuring 2.5 x 1.5 x 1.5 cm. Dissection reveals one possible lymph | | | node which is bisected and entirely submitted in cassette (C1). | | | CLR:[facility] MICROSCOPIC EXAMINATION: Histologic sections of all | | | submitted blocks are examined by light microscopy. These findings, | | | together with the gross examination, support the pathologic diagnosis. | | | ADDITIONAL NOTES: Immunohistochemical studies were performed on | | | this case with the appropriate positive controls that react as | | | expected. This test was developed and its performance | | | characteristics determined by [facility]. It has not been | | | cleared or approved by the U.S. Food and Drug Administration. The | | | FDA has determined that such clearance or approval is not necessary. | | | This test is used for clinical purposes. It should not be | | | regarded as investigational or for research. [facility] is | | | certified under the Clinical Laboratory Improvement Amendments of 1988 | | | (CLIA) as qualified to perform high complexity clinical laboratory | | | testing. This assay has not been validated for specimens that have | | | been decalcified. PERFORMING LABORATORY: Tissue processing and | | | slide preparation were performed by [facility], [address], [place] [address] (Enterprise Systems Architect: Joel Cat | | | Chikis; CLIA#: [id number]). Professional interpretation was performed | | | by [facility], [address], [place], [place] | | | [address] (Enterprise Systems Architect: Joel Cat M.D.; CLIA#: [id number]). | | | Diagnostician: David Quezada MD Pathologist | | | Electronically Signed 08/25/2017 | | + + + + +---------+ + + | Performing | Address | City/State/Zipcode | Phone Number | | Organization | | | | + +---------+ + + | [facility] | | | | | [facility] | | | | + +---------+ + + IMAGING REPORT - EXTERNAL SCAN (08/12/2017 12:00 AM PST) + + + | Narrative | Performed At | + + + | Ordered by an | | | unspecified provider. | | + + + LABS - EXTERNAL SCAN (08/10/2017 12:00 AM PST) + + + | Narrative | Performed At | + + + | Ordered by an | | | unspecified provider. | | + + + ECG - EXTERNAL SCAN (08/10/2017 12:00 AM PST) + + + | Narrative | Performed At | + + + | Ordered by an | | | unspecified provider. | | + + + PATHOLOGY - EXTERNAL SCAN (07/25/2017 12:00 AM PST) + + + | Narrative | Performed At | + + + | Ordered by an | | | unspecified provider. 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) Malignant | | melanoma of skin of upper limb, including shoulder | + + | Basal cell carcinoma of left upper extremity | + + documented in this encounter Administered Medications + +--------+ +--------+------+------+ | Medication Order | MAR | Action | Dose | Rate | Site | | | Action | Date | | | | + +--------+ +--------+------+------+ | acetaminophen (TYLENOL) tablet | Given | 08/24/19 | 650 mg | | | | 650 mg 650 mg, Oral, EVERY 4 | | 18 3:57 | | | | | HOURS PRN, Pain, Fever, Starting | | PM PDT | | | | | 08/23/17 at 1243, | | | | | | | Post-op/Phase II | | | | | | + +--------+ +--------+------+------+ + +---+ | | | + +---+ | albuterol 2.5 mg/3 mL nebulizer | | | solution 2.5 mg 2.5 mg, | | | Nebulization, ONCE PRN, Wheezing, | | | Starting 08/23/17 at 0819, | | | For 1 dose, RT will administer., | | | Pre-op | | + +---+ | | | + +---+ | albuterol 2.5 mg/3 mL nebulizer | | | solution 2.5 mg 2.5 mg, | | | Nebulization, ONCE PRN, Wheezing, | | | Starting 08/23/17 at 1108, | | | For 1 dose, Notify anesthesia if | | | patient is wheezing and does not | | | have a history of asthma or COPD | | | or current smoking., | | | Recovery/Phase I | | + +---+ | | | + +---+ | dextrose 50% injection 12.5-25 | | | g 12.5-25 g, Intravenous, EVERY | | | 15 MIN PRN, Low Blood Sugar, Give | | | 12.5g (25 mL) IV if blood | | | glucose 50-69 mg/dL. Give 25g | | | (50 mL) IV if blood glucose < 50, | | | Starting 08/23/17 at 0819, | | | Repeat in 15 min if blood glucose | | | remains < 70 mg/dL. Repeat | | | blood glucose in 30 min once | | | blood glucose > 70., Pre-op | | + +---+ | | | + +---+ | dextrose 50% injection 12.5-25 | | | g 12.5-25 g, Intravenous, EVERY | | | 15 MIN PRN, Low Blood Sugar, For | | | hypoglycemia. Give 12.5g (25ml) | | | IV if blood glucose 50-69 | | | mg/dL. Give 25g (50ml) IV if | | | blood glucose < 50, Starting Tue | | | 08/23/17 at 1108, Give over 2 min. | | | Repeat in 15 min if blood | | | glucose remains < 70 mg/dL. | | | Repeat blood glucose in 30 min | | | once blood glucose > 70., | | | Recovery/Phase I | | + +---+ | | | + +---+ | fentaNYL (PF) injection 25-50 | | | mcg 25-50 mcg, Intravenous, | | | EVERY 5 MIN PRN, Pain, Starting | | | 08/23/17 at 1108, Maximum | | | total dose 250 mcg. PACU IV | | | Narcotic Priority: Only use | | | fentanyl for immediate post-op | | | pain (one dose) or breakthrough | | | pain when any other IV narcotics | | | ordered have been ineffective (if | | | ordered). If both morphine and | | | hydromorphone are ordered, use | | | morphine first, and use | | | hydromorphone if morphine | | | ineffective., Recovery/Phase I | | + +---+ | | | + +---+ + + + +--------+---+---+ | HYDROmorphone (DILAUDID) | Given by | 08/24/19 | 0.2 mg | | | | injection 0.2-0.5 mg 0.2-0.5 mg, | Other | 18 11:32 | | | | | Intravenous, EVERY 5 MIN PRN, | | AM PDT | | | | | Pain, Starting Tu08/23/17 at | | | | | | | 1108, Maximum total dose 4 mg. | | | | | | | PACU IV Narcotic Priority: Only | | | | | | | use fentanyl for immediate | | | | | | | post-op pain (one dose) or | | | | | | | breakthrough pain when any other | | | | | | | IV narcotics ordered have been | | | | | | | ineffective (if ordered). If | | | | | | | both morphine and hydromorphone | | | | | | | are ordered, use morphine first, | | | | | | | and use hydromorphone if morphine | | | | | | | ineffective., Recovery/Phase I | | | | | | + + + +--------+---+---+ +-------+ +--------+---+---+ | Given | 08/24/19 | 0.3 mg | | | | | 18 11:11 | | | | | | AM PDT | | | | +-------+ +--------+---+---+ +---+---+ | | | +---+---+ + +---------+ +---+-------+---+ | lactated ringers (LR) infusion | New Bag | 08/24/19 | | 100 | | | at 100 mL/hr, Intravenous, | | 18 3:05 | | mL/hr | | | CONTINUOUS, Starting 08/23/17 | | PM PDT | | | | | at 0915, Pre-op | | | | | | + +---------+ +---+-------+---+ +---------+ +--------+-------+---+ | New Bag | 08/24/19 | 1,000 | 100 | | | | 18 11:40 | mLs | mL/hr | | | | AM PDT | | | | +---------+ +--------+-------+---+ | New Bag | 08/24/19 | 1,000 | 100 | | | | 18 8:56 | mLs | mL/hr | | | | AM PDT | | | | +---------+ +--------+-------+---+ + +---+ | | | + +---+ | meperidine (DEMEROL) injection | | | 12.5-25 mg 12.5-25 mg, | | | Intravenous, PRN, Shivering, | | | Starting [facility] 08/23/17 at 1108, For | | | 2 doses, May Repeat once in 5 | | | min., Recovery/Phase I | | + +---+ | | | + +---+ | ondansetron (ZOFRAN) injection | | | 4 mg 4 mg, Intravenous, ONCE | | | PRN, Nausea, Starting [facility] 08/23/17 | | | at 0819, For 1 dose, Pre-op | | + +---+ | | | + +---+ + +-------+ +------+---+---+ | ondansetron (ZOFRAN) injection | Given | 08/24/19 | 4 mg | | | | 4 mg 4 mg, Intravenous, ONCE | | 18 12:29 | | | | | PRN, Nausea, Starting e 08/23/17 | | PM PDT | | | | | at 1108, For 1 dose, | | | | | | | Recovery/Phase I | | | | | | + +-------+ +------+---+---+ +---+---+ | | | +---+---+ + +-------+ +---------+---+---+ | promethazine (PHENERGAN) (IV | Given | 08/24/19 | 6.25 mg | | | | ONLY) injection 6.25 mg 6.25 mg, | | 18 2:54 | | | | | Intravenous, ONCE, Tue08/23/17 | | PM PDT | | | | | at 1430, For 1 dose, Vesicant. | | | | | | | When ordered IV push: Dilute to | | | | | | | 10-20mL with NS. Give over 2-3 | | | | | | | minutes into large vein. Do not | | | | | | | give in hand/wrist or foot/ankle | | | | | | | vein. Max dose 12.5mg if giving | | | | | | | peripherally., Post-op/Phase II | | | | | | + +-------+ +---------+---+---+ +---+---+ | | | +---+---+ documented in this encounter
--- OUTSIDE RECORDS SUMMARY | ~2019-11-01 | XMS | Encounter Summary ---
Demographics + + + | Address | [address] | | | [place] [address] | + + + | Home Phone | | + + + | Preferred Language | Unknown | + + + | Marital Status | | + + + | Confucianism Affiliation | Unknown | + + + | Race | Unknown | + + + | Ethnic Group | Unknown | + + + Author + + + | Author | [facility] | | | and Aashishana | + + + | Organization | [facility] | | | and [...] Team Providers + +------+ + | Care Dye Padder Operator Name | Role | Phone | [...] | (Primary Dx) | | | | [place], | | | | | | [place] [address] | | | | | | [phone] | | | +--------+ + + + [...] [place] | | | | | | [phone] | | | | | | | | +--------+---------+ + + + documented as of this encounter Visit Diagnoses + + | Diagnosis | + + | Other chest pain - Primary | + + documented in this encounter"
--- OUTSIDE RECORDS SUMMARY | ~2019-11-01 | XMS | Encounter Summary ---
Demographics + + + | Address | [address] | | | [place] [address] | + + + | Home Phone [...] | Author | [facility] | | | and Aashishana | + + + | Organization | [facility] | | | and Aashishana [...] Team Providers + +------+ + | Care Scrap Collector Name | Role | Phone | + [...] Closed | | Radiology | Diagnoses | Marco, | [facility] | | | | | Malignant | Jos Guerrero MD | Medicine | | | | | melanoma of | [address] | [address] | | | | | left upper | [place], | | | | | extremity | [place], [place] | [place] | | | | | ([facility]) Basal | [address] | [address] | | | | | cell | Phone: | Phone: | | | | | carcinoma of | [phone] | [phone] | | | | | upper arm, | Fax: | Fax: | | | | | left | [phone] | [phone] | | | | | Procedures | | | | | | | NM | | | | | | | Lymphatics | | | | | | | Lymph Node | | | +--------+--------+ + + + + Reason for Visit Diagnostic/Screening (Routine) +--------+--------+ + + + + | Status | Reason | Specialty | Diagnoses / | Referred By | Referred To | | | | | Procedures | Contact | Contact | +--------+--------+ + + + + | Closed | | Radiology | Diagnoses | Marco, | [facility] | | | | | Malignant | Jos Guerrero MD | Medicine | | | | | melanoma of | [address] | [address] | | | | | left upper | [place] | [place], | | | | | extremity | [place], [place] | [place] | | | | | ([facility]) Basal | [address] | [address] | | | | | cell | Phone: | Phone: | | | | | carcinoma of | [phone] | [phone] | | | | | upper arm, | Fax: | Fax: | | | | | left | [phone] | [phone] | | | | | Procedures | | | | | | | NM | | | | | | | Lymphatics | | | | | | | Lymph Node | | | +--------+--------+ + + + + Encounter Details +--------+ + + + + | Date | Type | Department | Care Team | Description | +--------+ + + + + | 08/23/ | Hospital | [facility] | Jos Lara, | Malignant melanoma | | 2018 | Encounter | MED CTR NUCLEAR | [address] | of left upper | | | | MEDICINE [address] | [place], [place] | extremity (HCC); | | | | [address], | [address] | Basal cell carcinoma | | | | [place] [address] | [phone] | of upper arm, left | | | | [phone] | | | | | | | [place] | | +--------+ + + + + [...] [place] | | | | | | [address] | | | | | | | | +--------+---------+ + + + documented as of this encounter Procedures + +--------+ + + + | Procedure Name | Priori | Date/Time | Associated Diagnosis | Comments | | | ty | | | | + +--------+ + + + | NM LYMPHOSCINTIGRAM | Routin | 08/23/2017 | Malignant melanoma | Results for this | | | e | 8:00 AM | of left upper | procedure are in the | | | | PDT | extremity (HCC) | results section. | | | | | Basal cell carcinoma | | | | | | of upper arm, left | | + +--------+ + + + documented in this encounter Results NM Lymphatics Lymph Node (08/23/2017 8:00 AM PDT) + + | Specimen | + + | | + + + + + | Narrative | Performed At | + + + | NM LYMPHOSCINTIGRAM 08/23/2017 7:40 AM HISTORY: Malignant | [facility] | | melanoma of left upper extremity. COMPARISON: None. PROTOCOL: | | | The region of interest including 2 lesions of the left upper extremity | | | was cleansed with alcohol. A solution containing 1.2 mCi of sulfur | | | colloid was injected intradermally surrounding the area of interest | | | in 10 equal doses. IMPRESSION - Successful sentinel node | | | injection. Dictated and Signed by: Timmy Saul MD | | | Electronically signed: 08/23/2017 10:50 AM | | + + + + + | Procedure Note | + + | Edward, Rad Results In - 08/23/2017 10:53 AM PDT NM LYMPHOSCINTIGRAM 08/23/2017 7:40 AM | | | | HISTORY: Malignant melanoma of left upper extremity. | | | | COMPARISON: None. | | | | PROTOCOL: The region of interest including 2 lesions of the left upper extremity | | was cleansed with alcohol. A solution containing 1.2 mCi of sulfur colloid was | | injected intradermally surrounding the area of interest in 10 equal doses. | | | | IMPRESSION - | | Successful sentinel node injection. 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) | + + | Basal cell carcinoma of upper arm, left | + + documented in this encounter Administered Medications + +--------+ + +------+------+ | Medication Order | MAR | Action | Dose | Rate | Site | | | Action | Date | | | | + +--------+ + +------+------+ | technetium TC-99M sulfur | Given | 08/24/19 | 1.2 | | | | colloid injection 20 millicurie | | 18 7:41 | millicur | | | | 20 millicurie, Subdermal, ONCE | | AM PDT | ies | | | | PRN, Other, Starting 08/23/17 | | | | | | | at 0741, For 1 dose, Nuclear | | | | | | | Medicine | | | | | | + +--------+ + +------+------+ +---+---+ | | | +---+---+ documented in this encounter"
--- OUTSIDE RECORDS SUMMARY | ~2019-11-01 | XMS | Encounter Summary ---
Demographics + + + | Address | [address] | | | [place] [address] | + + + | Home Phone | | + + + | Preferred Language | Unknown | + + + | Marital Status | | + + + | Sikh Affiliation | Unknown | + + + | Race | Unknown | + + + | Ethnic Group | Unknown | + + + Author + + + | Author | [facility] | | | and Aashishana | + + + | Organization | [facility] | | | and [...] Team Providers + +------+ + | Care Trackman Name | Role | Phone | + +------+ + | Cristopher Castro MD | PCP | | + +------+ + Reason for Visit +--------+ + | Reason | Comments | +--------+ + | COPD | 4 wk follow up | +--------+ + Encounter Details +--------+---------+ + + + | Date | Type | Department | Care Team | Description | +--------+---------+ + + + | 04/12/ | Office | [facility] | Oscar Morales, | COPD, very severe | | 2018 | Visit | PULMONARY [address] | MD [address] | ([facility]) (Primary Dx) | | | | [place], | [place], [place] | | | | | [place] [address] | [address] | | | | | [phone] | | | +--------+---------+ + + + [...] + + + | Blood Pressure | 132/80 | 04/12/2018 12:52 PM | | | | | PDT | | + + + + + | Pulse | 84 | 04/12/2018 12:52 PM | | | | | PDT | | + + + + + | Temperature | - | - | | + + + + + | Respiratory Rate | - | - | | + + + + + | Oxygen Saturation | 96% | 04/12/2018 12:52 PM | RA | | | | PDT | | + + + + + | Inhaled Oxygen | - | - | | | Concentration | | | | + + + + + | Weight | 76.4 kg (168 lb 6.9 | 04/12/2018 12:52 PM | | | | oz) | PDT | | + + + + + | Height | 180.3 cm (5' 11") | 04/12/2018 12:52 PM | | | | | PDT | | + + + + + | Body Mass Index | 23.49 | 04/12/2018 12:52 PM | | | | | PDT | | + + + + + documented in this encounter Patient Instructions Patient Instructions Oscar Morales MD - 04/12/2018 1:00 PM PDT COPD Flare You have had a flare-up of your COPD. COPD, or chronic obstructive pulmonary disease, is a common lung disease. It causes your ai rways to become irritated and narrower. This makes it harder for you to breathe. Emphysema a nd chronic bronchitis are both types of COPD. This is a chronic condition, which means you a lways have it. Sometimes it gets worse. When this happens, it is called a flare-up. Symptoms of COPD People with COPD may have symptoms most of the time. In a flare-up, your symptoms get worse . These symptoms may mean you are having a flare-up: Shortness of breath, shallow or rapid breathing, or wheezing that gets worse Lung infection Cough that gets worse More mucus, thicker mucus or mucus of a different color Tiredness, decreased energy, or trouble doing your usual activities Fever Chest tightness Your symptoms don t get better even when you use your usual medicines, inhalers, and n ebulizer Trouble talking You feel confused Causes of flare-ups Unfortunately, a flare-up can happen even though you did everything right, and you followed your doctor s instructions. Some causes of flare-ups are: Smoking or secondhand smoke Colds, the flu, or respiratory infections Air pollution Sudden change in the weather Dust, irritating chemicals, or strong fumes Not taking your medicines as prescribed Home care Here are some things you can do at home to treat a flare-up: Try not to panic. This makes it harder to breathe, and keeps you from doing the right th ings. Don t smoke or be around others who are smoking. Try to drink more fluids than usual during a flare-up, unless your doctor has told you n ot to because of heart and kidney problems. More fluids can help loosen the mucus. Use your inhalers and nebulizer, if you have one, as you have been told to. If you were given antibiotics, take them until they are used up or your doctor tells you to stop. It s important to finish the antibiotics, even though you feel better. This will make sure the infection has cleared. If you were given prednisone or another steroid, finish it even if you feel better. Preventing a flare-up Even though flare-ups happen, the best way to treat one is to prevent it before it starts. Here are some pointers: Don t smoke or be around others who are smoking. Take your medicines as you have been told. Talk with your doctor about getting a flu shot every year. Also find out if you need a p neumonia shot. If there is a weather advisory warning to stay indoors, try to stay inside when possible . Try to eat healthy and get plenty of sleep. Try to avoid things that usually set you off, like dust, chemical fumes, hairsprays, or strong perfumes. Follow-up care Follow up with your healthcare provider, or as advised. If a culture was done, you will be told if your treatment needs to be changed. You can call as directedfor the results. If X-rays were done, you will be notified of any new findings that may affect your care. Call 911 Call 911 if any of these occur: You have trouble breathing You feel confused or it s difficult to wake you up You faint or lose consciousness You have a rapid heart rate You have new pain in your chest, arm, shoulder, neck or upper back When to seek medical advice Call your healthcare provider right awayifany of these occur: Wheezing or shortness of breath gets worse You need to use your inhalers more often than usual without relief Fever of 100.4F(38C) or higher, or as directed by your healthcare provider Coughing up lots of dark-colored or bloody mucus (sputum) Chest pain with each breath You do not start to get better within 24 hours Swelling of your ankles gets worse Dizziness or weakness Date Last Reviewed: 02/12/201619993102-7009 [employer]. [address] [place] [address]. All righ ts reserved. This information is not intended as a substitute for professional medical care. Always follow your healthcare professional's instructions. documented in this encounter Progress Notes Oscar Morales MD - 04/12/2018 1:00 PM PDTFormatting of this note might be different f rom the original. Pulmonary Follow Up 04/12/2018 HPI Parish Dickey is a 78 y.o. 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 The last pulmonary clinic visit was on 03/07/18. Since their last appointment they feel like their breathing issues have been stable. At the time of the patient's last clinic appointment Singulair was discontinued. No change in his shortness of breath was subsequently noted.. They have not had any acute pulmonary illnesses. The patient has not required a prednisone taper since our last clinic appointment. Likewise Parish has not required antibiotics fo r a COPD exacerbation since our last clinic appointment. The patient is currently on a daily regimen of Advair 500/50 for their COPD. They do feel like this medication regimen is/are controlling their symptoms. They are using their albute rol and Ipratropium nebulizer, 0 times a day. Currently the patient is able to walk 100-200 yards at their own pace on level ground befor e developing dyspnea. They are exercising regularly. Their typical exercise consists of walk ing in yard daily. Parish are not enrolled in cardiac/pulmonary rehabilitation. They have not completed pulmonary rehabilitation in the past. Parish does cough chronically and does produce mucous. The mucous is scant and clear in sandra love. They have not had hemoptysis since our last appointment. He has not been evaluated for nocturnal oxygen. Purchased concentrator but don't use. They have not reported recent symptoms of nasal congestion, runny nose or post nasal drip. The patient have received this year's influenza vaccination. They are not up to date with their Pneumovax but has received Prevnar 13. Past Medical History Past Medical [...] 1983 Malignant melanoma of left upper arm ([facility]) Other seborrheic keratosis Pure hypercholesterolemia Unspecified asthma(493.90) [...] by mouth Daily., Disp: , Rfl: fluticasone-salmeterol (ADVAIR) 500-50 mcg/puff diskus inhaler, Inhale 1 puff into the lungs Twice Daily., Disp: , Rfl: Insulin NPH Isophane & [...] INFLUENZA 63 Y OR >, TRIVALENT HIGH-DOSE 02/20/2017, 03/07/2018 PNEUMOCOCCAL CONJUGATE 13-VALENT (PCV13) 03/07/2018 Objective BP 132/80 | Pulse 84 | Ht 1.803 m (5' 11") | Wt 76.4 kg (168 lb 6.9 oz) | SpO2 96% Comm ent: RA | BMI 23.49 kg/m Physical Exam Constitutional: He is oriented [...] stage IV based on pulmonary function tests from 03/07/18. Today was confirm ed that Mr. Dickey's Advair is the 500/50 strength. Typically the 250/50 strength is that used in patients with COPD. Rather the higher strength of fluticasone is associated with in creased side effects without obvious clinical benefit. We will convert Mr. Dickey to Advair 250/50. Today we discussed whether the patient believes that an additional long-acting bronchodilat or is needed. Upon reflection Mr. Dickey believes that he does not need additional medicat ions at this time. Once again no significant oxygen desaturation was noted with exertion at the time of the alejandra figueroa's follow-up appointment on 03/07/18. I have encouraged Mr. Dickey to continue with regular scheduled exercise. Plan 1. Change Advair to 250/50, 1 inhalation twice daily. 2. Pulmonary clinic follow-up appointment in 6 months time. 3. Patient encouraged to contact our office with worsening symptoms. CC: Cristopher Castro MD P M PDTdocumented [...] [place] | | | | | | [address] | | | | | | | | +--------+---------+ + + + documented as of this encounter Visit Diagnoses + + | Diagnosis | + + | COPD, very severe (HCC) - Primary Chronic airway obstruction, not elsewhere | | classified | + + documented in this encounter
--- OUTSIDE RECORDS SUMMARY | ~2019-11-01 | XMS | Encounter Summary ---
Demographics + + + | Address | [address] | | | [place] [address] | + + + | Home Phone [...] | [facility] | | | and Aashishana | + + + | Organization | [facility] | | | and Aashishana [...] Team Providers + +------+ + | Care Radiologic Technologist Mammogram Name | Role | Phone | + [...] | disease, | [place] | [place] [address] | | | | | unspecified | [place], [place] | Phone: | | | | | ([facility]) | [address] | [phone] | | | | | Procedures | Phone: | Fax: | | | | | FILM FLAT INSPECTOR CONSULT | [phone] | [phone] | | | | | | Fax: | | | | | | | [phone] | | +--------+--------+ + + + + Encounter Details +--------+---------+ + + + | Date | Type | Department | Care Team | Description | +--------+---------+ + + + | 02/28/ | Office | [facility] | Oscar Morales, | Centrilobular | | 2018 | Visit | PULMONARY [address] | MD [address] | emphysema (HCC) | | | | [place], | [place], [place] | | | | | [place] [address] | [address] | | | | | [phone] | | | +--------+---------+ + + + [...] images of the lungs. Date Last Reviewed: 03/13/201619995730-6953 [employer]. [address] [place] [address], [place] [address]. All righ ts reserved. 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 In [...] Laterality: N/A; Surgeon: Thad Fatima MD; Location: [facility] 1978 ulcer surgery MASS EXCISION Left 08/23/2017 Procedure: Excision of Left Arm Skin Melanomas + Brooks Node Biopsy; Surgeon: Jos uribe MD; Location: [facility] MAIN OR TONSILLECTOMY AND ADENOIDECTOMY 1947 VASECTOMY [...] the patient's antic ipated time away from [place] starting in early March. CC: Cristopher Castro [...] [place] | | | | | | [address] | | | | | | | [...] Oscar Morales MD [facility]07[facility]2018 | [facility] | |IMPRESSION: Spirometry is consistent with [...] Morales MD 03/07/2018 15:05 | | |[facility] | | + + + XR [...]
--- OUTSIDE RECORDS SUMMARY | ~2019-11-01 | XMS | Encounter Summary ---
Demographics + + + | Address | [address] | | | [place] [address] | + + + | Home Phone | | + + + | Preferred Language | Unknown | + + + | Marital Status | | + + + | Alevism Affiliation | Unknown | + + + | Race | Unknown | + + + | Ethnic Group | Unknown | + + + Author + + + | Author | [facility] | | | and Aashishana | + + + | Organization | [facility] | | | and Aashishana [...] Team Providers + +------+ + | Care Thread Milling Machine Set Up Operator Name | Role | Phone | + +------+ + | Cristopher Castro MD | PCP | | + +------+ + Encounter Details +--------+---------+ + + + | Date | Type | Department | Care Team | Description | +--------+---------+ + + + | 08/23/ | Surgery | [facility] | Jos Lara, | Excision of Left Arm | | 2018 | | MED CTR OR INTRA OP | [address] | Skin Melanomas + | | | | [address] | [place], [place] | Ransom Node Biopsy | | | | [place] | [address] | | | | | [address] | [phone] | | | | | [phone] | | | +--------+---------+ + + + [...] about all medicines you take. This includes npbk-jtn-qxzcwlc medicines, herbs and other supplements. It also [...] treatments Risks of anesthesia Date Last Reviewed: 12/26/201419998279-1644 [employer]. [address] [place] [address], [place] [address]. All righ ts reserved. This information is [...] [place] | | | | | | [address] | | | | | | | [...] | + + + + + | [address] | [address] | [place] | [phone] | | [facility] | | [address] | | | - LABORATORY | | [...] [address] | [place] | [phone] | | [facility] | | [address] | | | - LABORATORY | | [...] support the above | | | diagnoses. CLR:[place]:C2NR GROSS DESCRIPTION: A. The specimen is | [...] | | | sectioned and entirely submitted [id number] o'clock in cassettes | | | (A1-A6). B. The specimen is received in formalin in a container | | | labeled "Parish Dickey, sentinel node #1, left axilla". Received is | | | a single unoriented hjl-uzbbyt-aczy fibrofatty tissue fragment | | | measuring 2.3 x 2 x 1.3 cm. Dissection reveals change consistent | | | with one fatty lymph node which is bisected and entirely submitted in | | | cassette (B1). C. The specimen is received in formalin in a | | | container labeled "Lugorobby Dickey, sentinel node #2, left axilla". | | | Received is a single wdx-hcqqyw-hanv fibrofatty tissue fragment | | | measuring 2.5 x 1.5 x 1.5 cm. Dissection reveals one possible lymph | | | node which is bisected and entirely submitted in cassette (C1). | | | CLR:[place] MICROSCOPIC EXAMINATION: Histologic sections of all | [...] performance | | | characteristics determined by [facility]. It has not been | | | cleared or approved by the U.S. Food and Drug Administration. The | | | FDA has determined that such clearance or approval is not necessary. | | | This test is used for clinical purposes. It should not be | | | regarded as investigational or for research. [facility] is | | | certified under the Clinical Laboratory Improvement Amendments of 1988 | | | (CLIA) as qualified to perform high complexity clinical laboratory | | | testing. This assay has not been validated for specimens that have | | | been decalcified. PERFORMING LABORATORY: Tissue processing and | | | slide preparation were performed by [facility], [address], [place] [address] (Travel Agency Manager: Joel Cat | | | Chikis; CLIA#: [id number]). Professional interpretation was performed | | | by [facility], [address], [place], [place] | | | [address] (Travel Agency Manager: Joel Cat M.D.; CLIA#: [id number]). | | | Diagnostician: David Quezada MD [...] | | | + +---+ + +-------+ +--------+---+ + | bupivacaine 0.25%-EPINEPHrine | Given | 08/24/19 | 30 mLs | | Surgical | | 1:200,000 (PF) 30 mL, lidocaine | | 18 10:12 | | | Site | | 30 mL OpTesia mixture PRN, | | AM PDT | | | | | Starting 08/23/17 at 1012, | | | | | | | Intra-op | | | | | | + +-------+ +--------+---+ + + +---+ | | | + +---+ [...] | | | + +---+ + +-------+ +--------+---+ + | heparin 5,000 units/mL | Given | 08/24/19 | 5,000 | | Abdomen- | | injection 5,000 Units 5,000 | | 18 9:50 | Units | | RUQ | | Units, Subcutaneous, ONCE, Tue | | AM PDT | | | | | 08/23/17 at 0845, For 1 dose, | | | | | | | Check with anesthesia prior to | | | | | | | administration of heparin., | | | | | | | Pre-op | | | | | | + +-------+ +--------+---+ + +---+---+ | | | +---+---+ + + + +--------+---+---+ | HYDROmorphone (DILAUDID) | Given by | 08/24/19 | 0.2 mg | | | | injection 0.2-0.5 mg 0.2-0.5 mg, | Other | 18 11:32 | | | | | Intravenous, EVERY 5 MIN PRN, | | AM PDT | | | | | Pain, Starting 08/23/17 at | | | | | | [...] Intravenous, PRN, Shivering, | | | Starting 08/23/17 at 1108, For | | | 2 doses, May Repeat once in 5 | | | min., Recovery/Phase I | | + +---+ | | | + +---+ | ondansetron (ZOFRAN) injection | | | 4 mg 4 mg, Intravenous, ONCE | | | PRN, Nausea, Starting 08/23/17 | | | at 0819, For 1 dose, Pre-op | | + +---+ | | | + +---+ + +-------+ +------+---+---+ | ondansetron (ZOFRAN) injection | Given | 08/24/19 | 4 mg | | | | 4 mg 4 mg, Intravenous, ONCE | | 18 12:29 | | | | | PRN, Nausea, Starting 08/23/17 | | PM PDT | [...] | | | | | Intravenous, ONCE, 08/23/17 | | PM PDT | | [...]
--- OUTSIDE RECORDS SUMMARY | ~2019-11-01 | XMS | Encounter Summary ---
Demographics + + + | Address | [address] | | | [place] [address] | + + + | Home Phone | | + + + | Preferred Language | Unknown | + + + | Marital Status | | + + + | Holiness Affiliation | Unknown | + + + | Race | Unknown | + + + | Ethnic Group | Unknown | + + + Author + + + | Author | [facility] | | | and Aashishana | + + + | Organization | [facility] | | | and Aashishana [...] Team Providers + +------+ + | Care Shellfish Processing Machine Tender Name | Role | Phone [...] ST | results) | | | | [place], | [place], [place] | | | | | [place] [address] | [address] | | | | | [phone] | | | +--------+ + + + [...] [place] | | | | | | [id number] | | | | | | | | +--------+---------+ + + + documented as of this encounter Visit Diagnoses Not on filedocumented in this encounter"
--- OUTSIDE RECORDS SUMMARY | ~2019-11-01 | XMS | Clinical Summary ---
Demographics + + + | Address | [address] | | | [place] [address] | + + + | Home Phone | | + + + | Preferred Language | Unknown | + + + | Marital Status | | + + + | Denominational Affiliation | Unknown | + + + | Race | Unknown | + + + | Ethnic Group | Unknown | + + + Author + + + | Author | [facility] | | | and Aashishana | + + + | Organization | [facility] | | | and [...] Team Providers + +------+ + | Care Pool Installer Name | Role | Phone | + +------+ + | Cristopher Castro MD | PCP | | + +------+ + Allergies + + + + + + | Active Allergy | Reactions | Severity | Noted | Comments | | | | | Date | | + + + + + + | Oxycodone | Other (See Comments) | Low | 08/23/19 | Rapid heart rate, | | | | | 18 | sweating and | | | | | | dizziness | + + + + + + Medications + + + +---------+------+------+-------+ | Medication | Sig | Dispensed | Refills | Star | End | Statu | | | | | | t | Date | s | | | | | | Date | | | + + + +---------+------+------+-------+ | enalapril | Take 5 mg by mouth | | 0 | | | Activ | | (VASOTEC) 5 mg | Daily. | | | | | e | | tablet | | | | | | | + + + +---------+------+------+-------+ | metFORMIN | Take 2,000 mg by | | 0 | | | Activ | | (GLUCOPHAGE) 500 mg | mouth Daily. | | | | | e | | tablet | | | | | | | + + + +---------+------+------+-------+ | lovastatin | Take 40 mg by mouth | | 0 | | | Activ | | (MEVACOR) 40 MG | nightly. | | | | | e | | tablet | | | | | | | + + + +---------+------+------+-------+ | CALCIUM & | Take by mouth | | 0 | | | Activ | | MAGNESIUM CARBONATES | Daily. Calcium | | | | | e | | PO | carbonate 250mg - | | | | | | | | magnesium carbonate | | | | | | | | 300mg | | | | | | + + + +---------+------+------+-------+ | | Take 1 tablet by | | 0 | | | Activ | | diphenhydrAMINE-acet | mouth nightly as | | | | | e | | aminophen (TYLENOL | needed. | | | | | | | PM EXTRA STRENGTH) | | | | | | | | 25-500 MG TABS | | | | | | | + + + +---------+------+------+-------+ | Insulin NPH | Inject 10 Units | | 0 | | | Activ | | Isophane & Regular | under the skin 2 | | | | | e | | (NOVOLIN 70/30 | times daily. | | | | | | | RELION SC) | | | | | | | + + + +---------+------+------+-------+ | acetaminophen | Take 325 mg by mouth | | 0 | | | Activ | | (TYLENOL) 325 mg | every 4 hours as | | | | | e | | tablet | needed for Pain. | | | | | | + + + +---------+------+------+-------+ | carisoprodol | Take 350 mg by mouth | | 0 | | | Activ | | (SOMA) 350 mg tablet | Daily. | | | | | e | + + + +---------+------+------+-------+ | clopidogrel | Take 75 mg by mouth | | 0 | | | Activ | | (PLAVIX) 75 mg | Daily. | | | | | e | | tablet | | | | | | | + + + +---------+------+------+-------+ | albuterol | Inhale 2 puffs into | | 0 | | | Activ | | (VENTOLIN HFA) 90 | the lungs every 4 | | | | | e | | mcg/puff inhaler | hours as needed for | | | | | | | | Wheezing. | | | | | | + + + +---------+------+------+-------+ | calcium carbonate | Take 1 tablet by | | 0 | | | Activ | | (TUMS) 500 mg | mouth as needed for | | | | | e | | chewable tablet | Heartburn. | | | | | | + + + +---------+------+------+-------+ | Misc Natural | Take 1 tablet by | | 0 | | | Activ | | Products (PROSTATE | mouth Daily. | | | | | e | | HEALTH PO) | | | | | | | + + + +---------+------+------+-------+ | losartan (COZAAR) | Take 550 mg by mouth | | 0 | | | Activ | | 100 MG tablet | Daily. | | | | | e | + + + +---------+------+------+-------+ | albuterol 2.5 mg/3 | Take 2.5 mg by | | 0 | | | Activ | | mL nebulizer | nebulization every 4 | | | | | e | | solution | hours as needed for | | | | | | | | Shortness of | | | | | | | | Breath. | | | | | | + + + +---------+------+------+-------+ | ipratropium | Take 0.5 mg by | | 0 | | | Activ | | (ATROVENT) 500 | nebulization every 4 | | | | | e | | mcg/2.5 mL nebulizer | hours as needed for | | | | | | | solution | Shortness of | | | | | | | | Breath. 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 [facility] | | CT Chest , 11/29/13 | + + + + + | Special screening for malignant neoplasms, colon | 12/06/2013 | + + + | Family history of malignant neoplasm of gastrointestinal tract | 12/06/2013 | + + + + + | Overview: Sister with colon cancer | | Brother with colon cancer | + + + +---+ | Unspecified disorder of kidney and ureter | | + +---+ + + | Overview: ICD-10 Record update | + + + +---+ | Allergic rhinitis, cause unspecified | | + +---+ + + | Overview: ICD-10 Record update | + + + +---+ | Nausea alone | | + +---+ + + | Overview: ICD-10 Record update | + + + +---+ | Hypertension | | + +---+ | Pure hypercholesterolemia | | + +---+ | Diabetes mellitus, type II - INSULIN & ORAL Control | | + +---+ | GERD (gastroesophageal reflux disease) | | + +---+ | Other seborrheic keratosis | | + +---+ Resolved Problems + +--------+ + | Problem | Noted | Resolved | | | Date | Date | + +--------+ + | Chronic obstructive asthma with exacerbation | | | | | | 9 | + +--------+ + Immunizations + + + + | Name | Administration Dates | Next Due | + + + + | INFLUENZA 63 Y OR >, | 03/07/2018, 02/20/2017, 04/02/2016, | | | TRIVALENT HIGH-DOSE | 04/02/2016 | | + + + + | PNEUMOCOCCAL | 03/07/2018 | | | CONJUGATE 13-VALENT | | | | (PCV13) | | | + + + + Family History + + +------+ + | Medical History | Relation | Name | Comments | + + +------+ + | Lung cancer | Brother | | | + + +------+ + | Lung cancer | Brother | | | + + +------+ + | Lupus | Brother | | | + + +------+ + | Cancer | Father | | lung | + + +------+ + | Colon cancer | Mother | | | + + +------+ + | Diabetes | Mother | | | + + +------+ + | Parkinsonism | Other | | | + + +------+ + | Lung cancer | Sister | | | + + +------+ + | Heart failure | Sister | | | + + +------+ + | Lupus | Sister | | | + + +------+ + + +------+ + + | Relation | Name | Status | Comments | + +------+ + + | Brother | | | | + +------+ + + | Brother | | | | + +------+ + + | Brother | | | | + +------+ + + | Brother | | Alive | | + +------+ + + | Father | | | | + +------+ + + | Mother | | | | + +------+ + + | Other | | | | + +------+ + + | Sister | | | | + +------+ + + | Sister | | | | + +------+ + + | Sister | | | | + +------+ + + Social History + + + [...] recent travel history available. | + + Last Filed Vital Signs + + + [...] | | + + + + + Plan of Treatment +--------+---------+ + + + | Date | Type | Specialty | Care Team | Description | +--------+---------+ + + + | 11/18/ | Office | Pulmonology | Oscar Morales, | | | 2019 | Visit | | MD Ignacio RAMACHANDRAN | | | | | | [place] | | | | | | [address] | | | | | | | | +--------+---------+ + + + + + + + + | Health Maintenance | Due Date | Last Done | Comments | + + + + + | Vaccine: | | | | | Dtap/Tdap/Td (1 - | 9 | | | | Tdap) | | | | + + + + + | Diabetic Eye Exam | | | | | | 6 | | | + + + + + | Diabetic Foot Exam | | | | | | 6 | | | + + + + + | Hemoglobin A1c | | | | | Screening | 6 | | | + + + + + | Vaccine: Zoster (1 | | | | | of 2) | 8 | | | + + + + + | Adult Annual | | | | | Wellness Visit | 5 | | | + + + + + | Vaccine: | | 03/07/2018 | | | Pneumococcal 65+ (2 | 9 | | | | of 2 - PPSV23) | | | | + + + + + | Vaccine: Influenza | | 03/07/2018, 02/20/2017, | | | (Season Ended) | 0 | 04/02/2016 | | + + + + + Results Not on filefrom Last 3 Months Insurance + +--------+ +--------+ +---------+--------+ | Payer | Benefi | Subscriber | Effect | Phone | Address | Type | | | t Plan | ID | marques | | | | | | / | | Dates | | | | | | Group | | | | | | + +--------+ +--------+ +---------+--------+ | MEDICARE | RAILRO | [id number] | 02/12/20 | [phone] | | Medica | | | AD | | 03-Pre | 5 | | re | | | MEDICA | | sent | | | | | | RE | | | | | | + +--------+ +--------+ +---------+--------+ | MEDICARE SUPPLEMENT | MEDICA | [id number] | | [phone] | | Indemn | | OTHER | RE | | 013-Pr | 0 | | ity | | | SUPPLE | | esent | | | | | | MENT | | | | | | | | OTHER | | | | | | + +--------+ +--------+ +---------+--------+ + +--------+ +--------+ + + | Guarantor Name | Accoun | Relation to | Date | Phone | Billing Address | | | t Type | Patient | of | | | | | | | | | | + +--------+ +--------+ + + | Parish Dickey | Person | Self | [birth year] | [address] | | [place] | al/Fam | | 1940 | [phone] | [place] [address] | | | douglas | | | 9 (Home) | | + +--------+ +--------+ + + Advance Directives + + + + + | Type | Date Recorded | Patient | Explanation | | | | Director Outpatient Services | | + + + + + | Power of | | | | | Cryptographic Vulnerability Analyst | | | | + + + + + | Advance | 08/16/2017 11:20 | | | | Directive | AM | | | + + + + + + + + + + | Code Status | Date | Date | Comments | | | Activated | Inactivated | | + + + + + | Full Code | 08/23/2017 | 08/23/2017 | | | | 12:43 PM | 6:13 PM | | + + + + +
--- OUTSIDE RECORDS SUMMARY | ~2019-11-01 | XMS | Encounter Summary ---
Demographics + + + | Address | [address] | | | [place] [address] | + + + | Home Phone | | + + + | Preferred Language | Unknown | + + + | Marital Status | | + + + | Christianity Affiliation | Unknown | + + + | Race | Unknown | + + + | Ethnic Group | Unknown | + + + Author + + + | Author | [facility] | | | and Aashishana | + + + | Organization | [facility] | | | and [...] Team Providers + +------+ + | Care Slide Maker Name | Role | Phone | [...] + + | 09/13/ | Office | [facility] | Oscar Morales, | COPD, very severe | | 2019 | Visit | PULMONARY [address] | MD [address] | ([facility]) | | | | [place], | [place], [place] | | | | | [place] [address] | [address] | | | | | [phone] | | | +--------+---------+ + + + [...] it? 1. 2. 3. Date Last Reviewed: 08/11/201719997080-7625 [employer]. [address] [place] [address]. All righ ts reserved. This information is [...] about once per day. Also walks at [facility]. Parish are not enrolled in cardiac/pu lmonary [...] appointments will be lengthened to 12 m [facility]. CC: Cristopher Castro MD P M [...] [place] | | | | | | [address] | | | | | | | | +--------+---------+ + + + documented as of this encounter Visit Diagnoses + + | Diagnosis | + + | COPD, very severe (HCC) Chronic airway obstruction, not elsewhere classified | + + documented in this encounter
--- OUTSIDE RECORDS SUMMARY | ~2019-11-01 | XMS | Encounter Summary ---
Demographics + + + | Address | [address] | | | [place] [address] | + + + | Home Phone | | + + + | Preferred Language | Unknown | + + + | Marital Status | | + + + | Faith Affiliation | Unknown | + + + | Race | Unknown | + + + | Ethnic Group | Unknown | + + + Author + + + | Author | [facility] | | | and Aashishana | + + + | Organization | [facility] | | | and Aashishana [...] Team Providers + +------+ + | Care Angle Shearer Name | Role | Phone | + +------+ + | Cristopher Castro MD | PCP | | + +------+ + Encounter Details +--------+ + + + + | Date | Type | Department | Care Team | Description | +--------+ + + + + | 02/28/ | [facility] | [facility] | Oscar Morales, | Centrilobular | | 2018 | Encounter | MED CTR XRAY [address] | [address] | emphysema (HCC) | | | | [place] | [place] | | | | | [place] [address] | [address] | | | | | [phone] | | | +--------+ + + + [...] [place] | | | | | | [address] | | | | | | | [...]
--- OUTSIDE RECORDS SUMMARY | ~2019-11-01 | XMS | Encounter Summary ---
Demographics + + + | Address | [address] | | | [place] [address] | + + + | Home Phone | | + + + | Preferred Language | Unknown | + + + | Marital Status | | + + + | Holiness Affiliation | Unknown | + + + | Race | Unknown | + + + | Ethnic Group | Unknown | + + + Author + + + | Author | [facility] | | | and Asahishana | + + + | Organization | [facility] | | | and Aashishana [...] Team Providers + +------+ + | Care Metal Sprayer Machined Parts Name | Role | Phone | + +------+ + | Cristopher Castro MD | PCP | | + +------+ + Encounter Details +--------+ + + + + | Date | Type | Department | Care Team | Description | +--------+ + + + + | 08/23/ | [facility] | Jos Lara, | | | 2018 | Encounter | MED CTR OR INTRA OP | [address] | | | | | [address] | [place] | | | | | [place] | [address] | | | | | [address] | [phone] | | | | | [phone] | | | +--------+ + + + [...] about all medicines you take. This includes ptid-sdg-kspjfgo medicines, herbs and other supplements. It also [...] treatments Risks of anesthesia Date Last Reviewed: 12/26/201419999383-9428 [employer]. [address] [place] [address]. All righ ts reserved. This information is [...] [place] | | | | | | [id number] | | | | | | | [...] [address] | [place] | [phone] | | [facility] | | [address] | | | - LABORATORY | | [...] [address] | [place] | [phone] | | [facility] | | [address] | | | - LABORATORY | | [...] support the above | | | diagnoses. CLR:[facility]:C2NR GROSS DESCRIPTION: A. The specimen is [...] | | | sectioned and entirely submitted liye49-9 o'clock in cassettes | | | (A1-A6). B. The specimen is received in formalin in a container | | | labeled "Parish Dickey, sentinel node #1, left axilla". Received is | | | a single unoriented trg-hxbaky-foke fibrofatty tissue fragment | | | measuring [...] | | | Received is a single uzs-xjtpkd-uzkc fibrofatty tissue fragment | | | measuring 2.5 x 1.5 x 1.5 cm. Dissection reveals one possible lymph | | | node which is bisected and entirely submitted in cassette (C1). | | | CLR:[facility] MICROSCOPIC EXAMINATION: Histologic sections of all [...] performance | | | characteristics determined by [employer] [facility]. It has not been | | | cleared or approved by the U.S. Food and Drug Administration. The | | | FDA has determined that such clearance or approval is not necessary. | | | This test is used for clinical purposes. It should not be | | | regarded as investigational or for research. [facility] is | | | certified under the Clinical Laboratory Improvement Amendments of 1988 | | | (CLIA) as qualified to perform high complexity clinical laboratory | | | testing. This assay has not been validated for specimens that have | | | been decalcified. PERFORMING LABORATORY: Tissue processing and | | | slide preparation were performed by [facility], [address], [place] [address] (Ceo And Founder: Joel Cat | | | Chikis; CLIA#: [id number]). Professional interpretation was performed | | | by [facility], [address], [place], [place] | | | [address] (Ceo And Founder: Joel Cat M.D.; CLIA#: [id number]). | | | Diagnostician: David Quezada MD [...] Intravenous, PRN, Shivering, | | | Starting Count Includes [facility] 08/23/17 at 1108, For | | | 2 doses, May Repeat once in 5 | | | min., Recovery/Phase I | | + +---+ | | | + +---+ | ondansetron (ZOFRAN) injection | | | 4 mg 4 mg, Intravenous, ONCE | | | PRN, Nausea, Starting Count Includes [facility] 08/23/17 | | | at 0819, [...]
--- OUTSIDE RECORDS SUMMARY | ~2019-11-01 | XMS | Encounter Summary ---
Demographics + + + | Address | [address] | | | [place] [address] | + + + | Home Phone | | + + + | Preferred Language | Unknown | + + + | Marital Status | | + + + | Gnosticist Affiliation | Unknown | + + + | Race | Unknown | + + + | Ethnic Group | Unknown | + + + Author + + + | Author | [facility] | | | and Aashishana | + + + | Organization | [facility] [...] Team Providers + +------+ + | Care Spiritual Counselor Name | Role | Phone | + [...] | [address] | [address] | | | | | left upper | [place], | | | | | extremity | [place], [place] | [place] | | | | | ([facility]) Basal | [address] | [address] | | | | | cell | Phone: | Phone: | | | | | carcinoma of | [phone] | [phone] | | | | | upper arm, | Fax: | Fax: | | | | | left | [phone] | [phone] | | | | | Procedures | [...] | [address] | [address] | | | | | left upper | [place] | [place], | | | | | extremity | [place], [place] | [place] | | | | | ([facility]) Basal | [address] | [address] | | | | | cell | Phone: | Phone: | | | | | carcinoma of | [phone] | [phone] | | | | | upper arm, | Fax: | Fax: | | | | | left | [phone] | [phone] | | | | | Procedures | [...] + + | 08/23/ | Hospital | [facility] | Jos Lara, | Malignant melanoma | | 2018 | Encounter | MED CTR NUCLEAR | [address] [facility] | of left upper | | | | MEDICINE [address] | [place], [place] | extremity (HCC); | | | | [place], | [address] | Basal cell carcinoma | | | | [place] [address] | [phone] | of upper arm, left | | | | [phone] | | | | | | | [...] [place] | | | | | | [address] | | | | | | | [...]
--- OUTSIDE RECORDS SUMMARY | ~2019-11-01 | XMS | Encounter Summary ---
Demographics + + + | Address | [address] | | | [place] [address] | + + + | Home Phone | | + + + | Preferred Language | Unknown | + + + | Marital Status | | + + + | Hoahaoism Affiliation | Unknown | + + + | Race | Unknown | + + + | Ethnic Group | Unknown | + + + Author + + + | Author | [facility] | | | and Aashishana | + + + | Organization | [facility] | | | and [...] Providers + +------+ + | Care Lens Assorter Name | Role | Phone | + [...] + + | 03/07/ | Office | [facility] | Oscar Morales, | COPD, very severe | | 2018 | Visit | PULMONARY [address] | MD [address] | ([facility]) (Primary Dx); | | | | [place], | [place], [place] | Need for influenza | | | | [place] [address] | [address] | vaccination; Need | | | | [phone] | | for pneumococcal | | | [...] Instructions Patient Instructions Oscar Morales MD - 03/07/2018 1:00 PM PDT [...] information carefully each time. Talk to your detective precinct regarding the use of this medicine in children. Special care may be needed. What side effects may I notice from receiving this medicine? Side effects that you should report to your doctor or health landcare facilitator as soon as p ossible: allergic reactions like skin rash or hives, swelling of the face, lips, or tongue chest pain dizziness or lightheaded fever or chills irregular heartbeat vision problems Side effects that usually do not require medical attention (report to your doctor or health landcare facilitator if they continue or are bothersome): coughing, [...] check ups. Tell your doctor or health landcare facilitator if yo ur symptoms do not get [...] have surgery tell your doctor or health landcare facilitator that you are using this medicine. Try [...] Currently he is using their short acting [facility] hodilator, Ventolin, 0 times a day. They [...] | | | | | [place] | | | | | | [address] | | | | | | | [...]
--- OUTSIDE RECORDS SUMMARY | ~2019-11-01 | XMS | Encounter Summary ---
Demographics + + + | Address | [address] | | | [place] [address] | + + + | Home Phone | | + + + | Preferred Language | Unknown | + + + | Marital Status | | + + + | Pentecostal Affiliation | Unknown | + + + | Race | Unknown | + + + | Ethnic Group | Unknown | + + + Author + + + | Author | [facility] | | | and Aashishana | + + + | Organization | [facility] | | | and [...] Team Providers + +------+ + | Care Top Lift And Automatic Window Repairer Name | Role | Phone | + [...] + + | 04/12/ | Office | [facility] | Oscar Morales, | COPD, very severe | | 2018 | Visit | PULMONARY [address] | MD [address] | ([facility]) (Primary Dx) | | | | [place], | [place], [place] | | | | | [place] [address] | [address] | | | | | [phone] | | | +--------+---------+ + + + [...] worse Dizziness or weakness Date Last Reviewed: 02/12/201619991644-2693 [employer]. [address] [place] [address]. All righ ts reserved. This information is [...] 1983 Malignant melanoma of left upper arm ([facility]) Other seborrheic keratosis Pure hypercholesterolemia Unspecified asthma(493.90) [...] [place] | | | | | | [address] | | | | | | | | +--------+---------+ + + + documented as of this encounter Visit Diagnoses + + | Diagnosis | + + | COPD, very severe (HCC) - Primary Chronic airway obstruction, not elsewhere | | classified | + + documented in this encounter
--- OUTSIDE RECORDS SUMMARY | ~2019-11-01 | XMS | Encounter Summary ---
Demographics + + + | Address | [address] | | | [place] [address] | + + + | Home Phone | | + + + | Preferred Language | Unknown | + + + | Marital Status | | + + + | Jew Affiliation | Unknown | + + + | Race | Unknown | + + + | Ethnic Group | Unknown | + + + Author + + + | Author | [facility] | | | and Aashishana | + + + | Organization | [facility] | | | and Aashishana | [...] Team Providers + +------+ + | Care Welder Helper Name | Role | Phone | + [...] | | | | CENTER [address] | [address] [place] | | | | | [place], [place] | [place] [address] | | | | | [address] | [phone] | | | | | [phone] | | | +--------+ + + + [...] [place] | | | | | | [id number] | | | | | | | [...] [address] | [place] | [phone] | | [facility] | | [address] | | | - LABORATORY | | [...] | [address] | [place] | [phone] | | [facility] | | [address] | | | - LABORATORY | | [...] [address] | [place] | [phone] | | [facility] | | [address] | | | - LABORATORY | | [...] [address] | [place] | [phone] | | [facility] | | [address] | | | - LABORATORY | | [...] | | | | | | [employer] | | | | | [...] ST. | [address] | [place], [place] | [phone] | | [facility] | | [address] | | | - LABORATORY | | [...] | | | | JOSY IBANEZ MD ([id number]) | | | | | | on [...] | | | ) | | ONCE, [facility] 08/07/15 at 1305, For 1 | | | | | | | dose, Shake well. Not for IV | | | | | | | use., | | | | | | + +--------+ +-------+------+ + +---+---+ | | | +---+---+ documented in this encounter
--- OUTSIDE RECORDS SUMMARY | ~2019-11-01 | XMS | Encounter Summary ---
Demographics + + + | Address | [address] | | | [place] [address] | + + + | Home Phone | | + + + | Preferred Language | Unknown | + + + | Marital Status | | + + + | Sikh Affiliation | Unknown | + + + | Race | Unknown | + + + | Ethnic Group | Unknown | + + + Author + + + | Author | [facility] | | | and Aashishana | + + + | Organization | [facility] | | | and Aashishana [...] Team Providers + +------+ + | Care Wellness Program Manager Name | Role | Phone | + [...] screening | [address], | | | | | for | [place], [place] | [address] | | | | | malignant | [address] [place] | [place], | | | | | neoplasms, | [place], [place] | [place] [address] | | | | | colon | [address] | Phone: | | | | | Family | Phone: | [phone] | | | | | history of | [phone] | Fax: | | | | | malignant | Fax: | [phone] | | | | | neoplasm of | [phone] | | | | | | gastrointest [...] 2013 | | GASTROENTEROLOGY | [address], [place] | (schedule | | | | [address] [place] | [address] [place], [place] | colonoscopy | | | | [address] [place], [place] | [address] | procedure only) | | | | [address] | | | | | | [phone] | | | +--------+ + + + [...] | | | | | [place] | | | | | | [address] | | | | | | | [...]
--- OUTSIDE RECORDS SUMMARY | ~2019-11-01 | XMS | Encounter Summary ---
Demographics + + + | Address | [address] | | | [place] [address] | + + + | Home Phone | | + + + | Preferred Language | Unknown | + + + | Marital Status | | + + + | Scientologist Affiliation | Unknown | + + + | Race | Unknown | + + + | Ethnic Group | Unknown | + + + Author + + + | Author | [facility] | | | and Aashishana | + + + | Organization | [facility] | | | and Aashishana [...] Team Providers + +------+ + | Care Snap Shearer Name | Role | Phone | + +------+ + | Cristopher Castro MD | PCP | | + +------+ + Encounter Details +--------+---------+ + + + | Date | Type | Department | Care Team | Description | +--------+---------+ + + + | 08/23/ | Surgery | [facility] | Jos Lara, | Excision of Left Arm | | 2018 | | MED CTR OR INTRA OP | [address] | Skin Melanomas + | | | | [address] | [place], [place] | [place] Node Biopsy | | | | [place] | [address] | | | | | [address] | [phone] | | | | | [phone] | | | +--------+---------+ + + + [...] about all medicines you take. This includes krzn-xfl-bmrvxqf medicines, herbs and other supplements. It also [...] treatments Risks of anesthesia Date Last Reviewed: 12/26/201419991961-8598 [employer] [address] [place] [address], [place] [address]. All righ ts reserved. This information is [...] [place] | | | | | | [address] | | | | | | | [...] [address] | [place] | [phone] | | [facility] | | [address] | | | - LABORATORY | | [...] [address] | [place] | [phone] | | [facility] | | [address] | | | - LABORATORY | | [...] support the above | | | diagnoses. CLR:[facility]:C2NR GROSS DESCRIPTION: A. The specimen is | [...] | | | sectioned and entirely submitted [id number] o'clock in cassettes | | | (A1-A6). B. The specimen is received in formalin in a container | | | labeled "Parish Dickey, sentinel node #1, left axilla". Received is | | | a single unoriented lef-qbfwxt-rdjf fibrofatty tissue fragment | | | measuring [...] | | | Received is a single ydg-wbnluv-eqrq fibrofatty tissue fragment | | | measuring 2.5 x 1.5 x 1.5 cm. Dissection reveals one possible lymph | | | node which is bisected and entirely submitted in cassette (C1). | | | CLR:[facility] MICROSCOPIC EXAMINATION: Histologic sections of all | [...] performance | | | characteristics determined by [facility]. It has not been | | | cleared or approved by the U.S. Food and Drug Administration. The | | | FDA has determined that such clearance or approval is not necessary. | | | This test is used for clinical purposes. It should not be | | | regarded as investigational or for research. [facility] is | | | certified under the Clinical Laboratory Improvement Amendments of 1988 | | | (CLIA) as qualified to perform high complexity clinical laboratory | | | testing. This assay has not been validated for specimens that have | | | been decalcified. PERFORMING LABORATORY: Tissue processing and | | | slide preparation were performed by [facility], [address], [place] [address] (Rag Cutting Machine Tender: Joel Cat | | | Chikis; CLIA#: [id number]). Professional interpretation was performed | | | by [facility], [address], [place], [place] | | | [address] (Rag Cutting Machine Tender: Joel Cat M.D.; CLIA#: [id number]). | | | Diagnostician: David Quezada MD [...]
--- OUTSIDE RECORDS SUMMARY | ~2019-11-01 | XMS | Clinical Summary ---
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 [facility] | | CT Chest , 11/29/13 [...] [place] | | | | | | [address] | | | | | | | [...] +--------+ +---------+--------+ | MEDICARE | RAILRO | [id number] | 02/12/20 | [phone] | | Medica | | | AD | | 03-Pre | 5 | | re | | | MEDICA | | sent | | | | | | RE | | | | | | + +--------+ +--------+ +---------+--------+ | MEDICARE SUPPLEMENT | MEDICA | [id number] | | [phone] | | Indemn | [...] Person | Self | [birth year] | [address] | | [place] | al/Fam | | 1940 | [phone] | [place] [address] | | | douglas | | | 9 (Home) | | + +--------+ +--------+ + + Advance Directives + + + + + | Type | Date Recorded | Patient | Explanation | | | | Edge Worker | | + + + + + | Power of | | | | | [employer] | | | | + + + [...]
[~2019-11-01 13:02] MED LIST: ASPIRIN EC81 MG PO; ENALAPRIL MALEA10 MG PO; ENALAPRIL MALEAT5 MG PO; IPRAT-ALBUT 0.5-3 ML INH; LOVASTATIN40 MG PO; METFORMIN HCL500 M1 PO; METHOCARBAMOL500 MG PO; NOVOLOG MI100 UNITS/ SUB-Q; PREDNISONE20 MG PO; PULMICORT FLE180 MCG INH; ROBAXIN500 MG PO; SINGULAIR10 MG PO; VENTOLIN HFA18 GM INH; ZANTAC150 MG PO
--- NOTE | 2019-11-01 13:56 | EKG ---
[facility] [address] [place] [address] Signed Normal sinus rhythm Normal ECG When compared with ECG of 06-JUN-2016 15:46, Vent. rate has decreased BY 51 BPM Confirmed by NATE GREENE MD ([id number]) on 11/01/2019 1:56:29 PM Electronically Signed By: NATE GREENE MD 11/01/19 1356 PATIENT NAME: DAVID BAI Electrocardiogram DATE OF : 36 PHYSICIAN: NATE GREENE MD REPORT #: [id number] REPORT IS CONFIDENTIAL AND NOT TO BE RELEASED WITHOUT AUTHORIZATION
== END 2019-11-01 16:46 | disposition home or self-care (01) ==
LOC: ED 13:02
DX: E11.649 Type 2 diabetes mellitus with hypoglycemia without coma (principal); I10 Essential (primary) hypertension; J45.909 Unspecified asthma, uncomplicated; Z87.891 Personal history of nicotine dependence; Z88.5 Allergy status to narcotic agent; Z79.899 Other long term (current) drug therapy; Z79.4 Long term (current) use of insulin
CPT/HCPCS: 80053; 81001; 83735; 84484; 85025; 93005; 93010; 99285-25

== ENCOUNTER 2024-02-06 15:39 | Emergency (ER) | payer MEDICARE, OTHER ==
[~2024-02-06] VITALS: Ht 177.8 cm; Wt 77.1 kg
[2024-02-06] MEDS ORDERED: WARFARIN SODIU2.5 MG PO (15:58)
[2024-02-06] MEDS ORDERED: CLOPIDOGREL75 MG PO (15:59)
[2024-02-06 18:30] VITALS: BP 155/83
== END 2024-02-06 18:30 | disposition home or self-care (01) ==
LOC: ED 15:39
DX: L76.21 Postprocedural hemorrhage of skin and subcutaneous tissue following a dermatologic procedure (principal); E11.9 Type 2 diabetes mellitus without complications; J45.909 Unspecified asthma, uncomplicated; I10 Essential (primary) hypertension; Z85.828 Personal history of other malignant neoplasm of skin; Z87.891 Personal history of nicotine dependence; Z88.5 Allergy status to narcotic agent; Z79.01 Long term (current) use of anticoagulants; Z79.4 Long term (current) use of insulin; Z79.899 Other long term (current) drug therapy; Z79.84 Long term (current) use of oral hypoglycemic drugs
CPT/HCPCS: 99283